=== PATIENT | male | born 1935 | race Hispanic/Latino ===

== ENCOUNTER 2019-02-13 10:29 | Inpatient (IN) | payer MEDICARE ==
--- NOTE | 2019-02-13 11:03 | Emergency Department Report ---
ED General Adult HPI - General Chief complaint: Back Pain/Injury Stated complaint: BACK PAIN Time Seen by Provider: 02/13/19 11:01 Source: EMS Mode of arrival: Stretcher Limitations: Physical Limitation - History of Present Illness Initial comments: Patient is an 83-year-old male who comes to the ER today via EMS with severe back pain. Per his family he is usually an active person. He drives and gets his haircut every couple weeks. However, for the last 2 weeks he has been complaining of his back hurting. This is after he bent over and put air and his tire during which time he felt a pop. Immediately after that event he was able to walk and go about his daily activities in his home. However, he would not leave the home and do his usual errands. Over the past 2 days the patient has been in bed in so much pain that he has been urinating and defecating 2:00 at his bedside. Patient has no incontinence. He is able to move his lower extremities against gravity and resistance: Only after receiving fentanyl 100 g via EMS personnel. His states that prior to getting the medicine he would not move his legs because of excruciating pain right more than left. Patient has no saddle anesthesia on exam. Patient does have COPD and has been on and off prednisone all of his life. Pt does report that he has had back pain in the past and has a "low back problem" but the pain has never been this bad. PCP none NOK PMH copd quit smoking 16 years ago home O2 1-3L PRN HTN dyslipidemia Rx spiriva triamt. losartan B12 MVI Breo Statin -: Gradual, week(s) (2) Radiation: extremity Severity scale (0 -10): 10 Consistency: constant Improves with: medication Worsens with: movement Associated Symptoms: denies other symptoms Treatments Prior to Arrival: NSAID, Aspirin, cold therapy, heat therapy - Related Data Allergies Allergy/AdvReac Type Severity Reaction Status Date / Time Penicillins Allergy Anaphylaxis Verified 02/13/19 10:54 ED Review of Systems ROS: Stated complaint: BACK PAIN Other details as noted in HPI Comment: All other systems reviewed and negative ED Past Medical Hx - Past Medical History Previous Medical History?: Yes Hx Hypertension: Yes Hx CVA: No Hx Heart Attack/AMI: No Hx Congestive Heart Failure: Yes Hx Diabetes: No Hx Deep Vein Thrombosis: No Hx Pulmonary Embolism: No Hx GERD: No Hx Liver Disease: No Hx Renal Disease: No Hx of Cancer: No Hx Sickle Cell Disease: No Hx Arthritis: No Hx Headaches / Migraines: No Hx Seizures: No Hx Kidney Stones: No Hx Psychiatric Treatment: No Hx Asthma: Yes Hx COPD: Yes Hx Tuberculosis: No Hx Dementia: No Hx HIV: No - Surgical History Past Surgical History?: Yes Additional Surgical History: Hernia repair - Family History Family history: no significant - Social History Smoking Status: Former Smoker Substance Use Type: None ED Physical Exam - General Limitations: Physical Limitation General appearance: alert - Head Head exam: Present: atraumatic, normocephalic - Eye Eye exam: Present: normal appearance, PERRL - ENT ENT exam: Present: mucous membranes moist - Neck Neck exam: Present: normal inspection - Respiratory Respiratory exam: Present: normal lung sounds bilaterally. Absent: respiratory distress - Cardiovascular Cardiovascular Exam: Present: regular rate, normal rhythm. Absent: systolic murmur, diastolic murmur, rubs, gallop - GI/Abdominal GI/Abdominal exam: Present: soft, normal bowel sounds - Rectal Rectal exam: Present: normal rectal tone - exam: Present: normal inspection - Extremities Exam Extremities exam: Present: normal capillary refill, other (pain with movement bilateral but will move against gravity and resistance p pain meds) - Back Exam Back exam: Present: normal inspection - Neurological Exam Neurological exam: Present: alert, oriented X3 - Psychiatric Psychiatric exam: Present: normal affect, normal mood - Skin Skin exam: Present: warm, dry, intact, normal color, other (dry scaly ble). Absent: rash ED Course Vital Signs 02/13/19 02/13/19 10:47 12:54 Pulse Rate 58 L Respiratory 14 Rate Blood Pressure 130/66 102/84 [Right] O2 Sat by Pulse 98 Oximetry ED Medical Decision Making - Lab Data Result diagrams: 02/13/19 11:26 02/13/19 11:26 - Radiology Data Radiology results: report reviewed, image reviewed - Medical Decision Making Vital Signs 02/13/19 10:47 Pulse Rate 58 L Respiratory 14 Rate Blood Pressure 130/66 [Right] O2 Sat by Pulse 98 Oximetry Labs 02/13/19 02/13/19 02/13/19 11:26 11:26 Unknown WBC 12.3 H RBC 4.82 Hgb 13.2 Hct 40.2 MCV 83 L MCH 27 L MCHC 33 RDW 13.5 Plt Count 362 Lymph % (Auto) 9.1 L Quay % (Auto) 10.5 H Eos % (Auto) 0.7 Baso % (Auto) 0.8 Lymph # 1.1 L Quay # 1.3 H Eos # 0.1 Baso # 0.1 Seg Neutrophils % 78.9 H Seg Neutrophils # 9.7 H Sodium 131 L Potassium 3.6 Chloride 93.9 L Carbon Dioxide 22 Anion Gap 19 BUN 22 H Creatinine 0.8 Estimated GFR > 60 BUN/Creatinine Ratio 28 Glucose 103 H Calcium 9.0 Total Bilirubin 0.80 AST 22 ALT 16 Alkaline Phosphatase 106 Troponin T < 0.010 Total Protein 6.8 Albumin 3.5 L Albumin/Globulin Ratio 1.1 Urine Color Yellow Urine Turbidity Clear Urine pH 7.0 Ur Specific Darwin 1.013 Urine Protein 30 mg/dl Urine Glucose (UA) Neg Urine Ketones Neg Urine Blood Neg Urine Nitrite Neg Urine Bilirubin Neg Urine Urobilinogen < 2.0 Ur Leukocyte Esterase Neg Urine WBC (Auto) 1.0 Urine RBC (Auto) 2.0 Hyaline Casts 1 Urine Mucus Few pt given fentanyl by EMS- that has taken pain from [address] Fernando [address] Aguilar- admit for pain/brace 1420 MRI noted- pt re-medicated for pain [address] Johns will admit for intractable pain family and pt updated - Differential Diagnosis ro lumbar fx Critical care attestation.: If time is entered above; I have spent that time in minutes in the direct care of this critically ill patient, excluding procedure time. ED Disposition Clinical Impression: Intractable back pain, Lumbar compression fracture, History of COPD Disposition: - OP ADMIT IP TO THIS HOSP Is pt being admited?: Yes Does the pt Need Aspirin: No Condition: Stable Time of Disposition: 14:28
[2019-02-13 11:46] LABS: Basophils # (Auto) 0.1 K/mm3 (0.0-0.1); Basophils % (Auto) 0.8 % (0.0-1.8); Eosinophils # (Auto) 0.1 K/mm3 (0.0-0.4); Eosinophils % (Auto) 0.7 % (0.0-4.3); Hematocrit 40.2 % (35.5-45.6); Hemoglobin 13.2 gm/dl (11.8-15.2); Lymphocytes # (Auto) 1.1 K/mm3 (1.2-5.4); Lymphocytes % (Auto) 9.1 % (13.4-35.0); Mean Corpuscular HGB Conc 33 % (32-34); Mean Corpuscular Volume 83 fl (84-94); Monocytes # (Auto) 1.3 K/mm3 (0.0-0.8); Monocytes % (Auto) 10.5 % (0.0-7.3); Platelet Count 362 K/mm3 (140-440); Red Blood Count 4.82 M/mm3 (3.65-5.03); Red Cell Distribution Width 13.5 % (13.2-15.2)
--- NOTE | 2019-02-13 11:59 | XRay Report ---
CHEST 1 VIEW INDICATION: Chest Pain. COMPARISON: None. FINDINGS: Support devices: None. Heart: Within normal limits. Pulmonary vasculature: Normal. Lungs/Pleura: No acute air space or interstitial disease. Likely chronic bilateral perihilar intersti tial opacities. No pleural effusion. Additional findings: None. IMPRESSION: 1. No CHF or pneumonia. Signer Name: Shree Eubanks MD Signed: 02/13/2019 11:54 AM Workstation Name: [id number]
[2019-02-13 12:04] LABS: Alanine Aminotransferase 16 units/L (7-56); Albumin 3.5 g/dL (3.9-5); BUN/Creatinine Ratio 28; Blood Urea Nitrogen 22 mg/dL (9-20); Hemolysis Index 4
[2019-02-13 12:07] LABS: Bilirubin,Urine NEG (Negative); Blood,Urine NEG (Negative); Color,Urine Yellow (Yellow); Hyaline Casts,Urine 1 /LPF; Mucus,Urine FEW /HPF; Urobilinogen,Urine < 2.0 mg/dL (<2.0)
--- NOTE | 2019-02-13 12:26 | Cat Scan Report ---
CT LUMBAR SPINE WITHOUT CONTRAST INDICATION: severe low back pain. TECHNIQUE: Axial imaging performed through the lumbar spine without the use of contrast. Sagittal a nd coronal reconstructed images were also reviewed. All CT scans at this location are performed usin g CT dose reduction for ALARA by means of automated exposure control. COMPARISON: None FINDINGS: Alignment: Spinal alignment is normal. Bones: Severe osteopenia is evident. A chronic L1 superior endplate fracture is identified with 50% l oss of height. Acute fracture lines are identified throughout the L3 vertebral body with 25% loss of height. There is mild retropulsion of the posterior wall of L3 into the spinal canal resulting in mil d to moderate canal narrowing. No additional acute fractures are identified. Moderate multilevel dege nerative disc disease and facet arthropathy are identified. No suspicious bone lesion. There appears to be deformity and fusion of the right SI joint which may represent a chronic healed fracture. Soft tissues: No acute or significant incidental soft tissue abnormality. IMPRESSION: Severe osteopenia. Acute L3 fracture as outlined above. If radicular symptoms are present consider further evaluation wi th MRI. Chronic L1 fracture. Advanced multilevel degenerative changes. Question chronic healed fracture of the right sacrum. Signer Name: Elvis Gramajo Jr, MD Signed: 02/13/2019 12:21 PM Workstation Name: [id number]
--- NOTE | 2019-02-13 14:14 | Magnetic Resonance Report ---
MRI LUMBAR SPINE 02/13/2019 INDICATION / CLINICAL INFORMATION: SEVERE LUMBAR PAIN. Abnormal CT scan COMPARISON: Lumbar spine CT 02/13/2019 FINDINGS: GENERAL OBSERVATIONS: Unenhanced MR images of the lumbar spine were obtained and compared to a CT sca n obtained earlier in the day. As seen on the CT exam, there is evidence of acute compression deformity of the L3 vertebral body, wh ich is lost approximately 50% of its original height. A chronic pronounced compression deformity of L1 is also noted. The remaining lumbar vertebral body heights are preserved. [id number]-[id number] ANALYSIS: L5-S1: The disc profile is well preserved. L4-5: Mild diffuse disc bulging is present associated with prominent facet degenerative changes. Ther e is no evidence of stenosis or nerve root compression. L3-4: Minimal diffuse disc bulging. L2-3: Moderate diffuse disc bulging associated with some dorsal retropulsion of the L3 compression fr acture, resulting in moderately severe central canal stenosis. L1-2: Minimal diffuse disc bulging. BONE MARROW: Findings consistent with acute bone marrow edema at the L3 level associated with the com pression deformity. Some degenerative bone marrow signal changes are also noted at the T2 level. SPINAL CORD/CAUDA EQUINA: No significant abnormality. PARASPINAL SOFT TISSUES: No significant abnormality. IMPRESSION: 1. Acute/recent L3 compression deformity. 2. Prominent chronic compression of L1. Signer Name: Vitor Almaraz MD Signed: 02/13/2019 2:09 PM Workstation Name: [id number]
[2019-02-13] MEDS ORDERED: oxyCODONE /ACETAMINOPHEN 5-325MG TAB PO ONE (14:22)
[2019-02-13] MEDS ORDERED: ALBUTEROL 2.5 MG/3 ML NEBU IH PRN (14:38)
[2019-02-13] MEDS ORDERED: MORPHINE 2 MG/1 ML INJ IV PRN (14:38)
[2019-02-13] MEDS ORDERED: ONDANSETRON 4 MG/2 ML INJ IV PRN (14:38)
--- NOTE | 2019-02-13 14:41 | History and Physical Report ---
History of Present Illness Chief complaint: My back hurts something terrible History of present illness: 83 YO Male with DJD, COPD, HTN, Chronic Respiratory Failure on Home Oxygen 3L NC, HLD presents to ED for evaluation. Pt states that he has experienced severe pain in his lower back over the past 2 weeks, with progressively worsening symptoms over the same time frame. Pt states that he was bending over to put air in his automobile tire when he felt a "pop" in his lower back a few days ago. Pt states that he has subsequently felt worsening pain in his lower back. Pt is currently unable to walk due to pain. EMS notified, and upon arrival the patient was found to be in distress and transported to [facility]. Pt seen and evaluated in ED and found to have Severe DJD, complicated by Sciatica due to Lumbar compression fracture. Ortho surgery consulted in ED. Pt denies saddle anesthesia, impotence, loss of bowel/bladder continence. Pt placed in observation status and admitted to DEO unit. Advanced Care Planning conducted in ED. Pt and acknowledge understanding and agreement with care plan. No prior admission for review. All listed medication reconciled at time of admission. Past History Past Medical History: other (see hpi) Past Surgical History: hernia repair Social history: . denies: smoking, alcohol abuse Family history: hypertension Medications and Allergies Allergies Allergy/AdvReac Type Severity Reaction Status Date / Time Penicillins Allergy Anaphylaxis Verified 02/13/19 10:54 Active Meds: Active Medications Acetaminophen (Tylenol) 650 mg PO Q4H PRN PRN Reason: Pain MILD(1-3)/Fever >100.5/GARCIA Albuterol (Proventil) 2.5 mg IH Q4HRT PRN PRN Reason: Shortness Of Breath Sodium Chloride (Nacl 0.9% 1000 Ml) 1,000 mls @ 75 mls/hr IV DIRECT RUBIO Levofloxacin/Dextrose (Levaquin 500mg/100ml) 500 mg in 100 mls @ 100 mls/hr IV Q24HR RUBIO; Protocol Morphine Sulfate (Morphine) 2 mg IV Q4H PRN PRN Reason: Pain, Moderate (4-6) Ondansetron HCl (Zofran) 4 mg IV Q8H PRN PRN Reason: Nausea And Vomiting Oxycodone/Acetaminophen (Percocet 5/325) 1 tab PO Q6H PRN PRN Reason: Pain, Moderate (4-6) Sodium Chloride (Sodium Chloride Flush Syringe 10 Ml) 10 ml IV BID RUBIO Sodium Chloride (Sodium Chloride Flush Syringe 10 Ml) 10 ml IV PRN PRN PRN Reason: LINE FLUSH Review of Systems Constitutional: no weight loss, no weight gain, no fever, no chills Ears, nose, mouth and throat: no ear pain, no ear discharge, no tinnitis, no n ose pain Cardiovascular: no orthopnea, no palpitations, no rapid/irregular heart beat, no syncope Respiratory: no cough, no excessive sputum, no hemoptysis Gastrointestinal: no nausea, no vomiting, no diarrhea, no constipation Genitourinary Male: no hematuria, no flank pain, no discharge, no urinary frequency, no urinary hesitancy, no incontinence Rectal: no pain, no incontinence, no bleeding Musculoskeletal: low back pain, shooting leg pain, gait dysfunction, no neck stiffness, no neck pain, no redness of joints Integumentary: no rash, no pruritis, no redness, no sores, no wounds Neurological: no head injury, no transient paralysis, no paralysis, no weakness, no parathesias, no numbness, no tingling Psychiatric: no anxiety, no memory loss, no hypersomnia, no change in appetite Endocrine: no cold intolerance, no heat intolerance, no polyphagia, no polydipsia, no polyuria, no nocturia Hematologic/Lymphatic: no easy bruising, no easy bleeding, no lymphadenopathy Allergic/Immunologic: no urticaria, no wheezing, no persistent infections, no anaphylaxis Exam - Constitutional Vitals: Temp Pulse Resp BP Pulse Ox 58 L 14 102/84 98 02/13/19 10:47 02/13/19 10:47 02/13/19 12:54 02/13/19 10:47 General appearance: Present: mild distress - EENT Eyes: Present: PERRL ENT: hearing intact, clear oral mucosa - Neck Neck: Present: supple, normal ROM - Respiratory Respiratory effort: normal Respiratory: bilateral: CTA - Cardiovascular Heart Sounds: Present: S1 & S2. Absent: rub, click - Extremities Extremities: pulses symmetrical, No edema Peripheral Pulses: within normal limits - Abdominal General gastrointestinal: Present: soft, non-tender, non-distended, normal bowel sounds Male genitourinary: Present: normal - Integumentary Integumentary: Present: clear, warm, dry - Musculoskeletal Musculoskeletal: gait normal, strength equal bilaterally - Psychiatric Psychiatric: appropriate mood/affect, intact judgment & insight - Neurologic Neurologic: CNII-XII intact, moves all extremities Results - Labs CBC & Chem 7: 02/13/19 11:26 02/13/19 11:26 Labs: Abnormal lab results 02/13/19 02/13/19 Range/Units 11:26 11:26 WBC 12.3 H (4.5-11.0) K/mm3 MCV 83 L (84-94) fl MCH 27 L (28-32) pg Lymph % (Auto) 9.1 L (13.4-35.0) % Davie % (Auto) 10.5 H (0.0-7.3) % Lymph # 1.1 L (1.2-5.4) K/mm3 Davie # 1.3 H (0.0-0.8) K/mm3 Seg Neutrophils % 78.9 H (40.0-70.0) % Seg Neutrophils # 9.7 H (1.8-7.7) K/mm3 Sodium 131 L (137-145) mmol/L Chloride 93.9 L (98-107) mmol/L BUN 22 H (9-20) mg/dL Glucose 103 H (75-100) mg/dL Albumin 3.5 L (3.9-5) g/dL Assessment and Plan - Patient Problems (1) Chronic respiratory failure Current Visit: Yes Status: Chronic Plan to address problem: Supplemental oxygen, nebulizer therapy, pulse oximetry, NIPPV as clinically indicated, (2) Sciatica Current Visit: Yes Status: Acute Qualifiers: Laterality: bilateral Qualified Code(s): M54.31 - Sciatica, right side; M54.32 - Sciatica, left side Plan to address problem: IV steroid therapy, Lumbar x ray, Lumbar MRI, ortho consulted in ED, LSO Brace (3) Constipation Current Visit: Yes Status: Acute Qualifiers: Constipation type: other constipation type Qualified Code(s): K59.09 - Other constipation Plan to address problem: bowel regimen (4) Intractable back pain Current Visit: No Status: Acute Plan to address problem: Pain control, supportive care. weight bearing as per ortho surgery (5) Lumbar compression fracture Current Visit: No Status: Acute Qualifiers: Lumbar vertebra fracture level: L3 Plan to address problem: Ortho consulted in ED, LSO Brace, IV steroid therapy, MRI lumbar spine, pain control, PT consulted. (6) SIRS (systemic inflammatory response syndrome) Current Visit: Yes Status: Acute Plan to address problem: CBC, CMP, Chest x ray, urinalysis, empiric antibiotic therapy (7) Hyponatremia syndrome Current Visit: Yes Status: Acute Plan to address problem: IVF resuscitation therapy, monitor uop q shift, (8) Advance care planning Current Visit: Yes Status: Acute Plan to address problem: Code Status: Pt is full code, Pt and acknowledge understanding and agreement with care plan. +30min (9) DVT prophylaxis Current Visit: Yes Status: Acute Plan to address problem: SCD to BLE while in bed, prophylactic lovenox
[2019-02-13] MEDS: methylPREDNISolone Sod Succinate 40 MG/1 ML INJ IV SCH (15:40)
[2019-02-13] MEDS ORDERED: SENNOSIDES/DOCUSATE SODIUM 8.6/50 MG TAB PO PRN (16:45)
[2019-02-13] MEDS ORDERED: FLEET ENEMA PR ONE ×2 (16:45→19:05)
--- NOTE | 2019-02-13 20:36 | Consultation ---
History of Present Illness Consult date: 02/13/19 Reason for consult: COPD, hypoxemia, other (Back pain.) History of present illness: pulmonary and critical care consultation DR. ACEVEDO THANK YOU FOR ASKING US TO PARTICIPATE IN THE CARE OF THIS PATIENT. 83 YO Male with DJD, COPD, HTN, Chronic Respiratory Failure on Home Oxygen 3L NC, HLD presents to ED for evaluation. Pt states that he has experienced severe pain in his lower back over the past 2 weeks, with progressively worsening symptoms over the same time frame. Pt states that he was bending over to put air in his automobile tire when he felt a "pop" in his lower back a few days ago. Pt states that he has subsequently felt worsening pain in his lower back. Pt is currently unable to walk due to pain. EMS notified, and upon arrival the patient was found to be in distress and transported to [facility]. Pt seen and evaluated in ED and found to have Severe DJD, complicated by Sciatica due to Lumbar compression fracture. Ortho surgery consulted in ED. Pt denies saddle anesthesia. Pt placed in observation status and admitted to DEO unit. Patient denies chest pain or shortness of breath or cough. Patient resting on 3 litres O2. O2 saturation 97%. History of smoking. Stopped smoking many years ago. Patient has COPD and chronic respiratory failure and on home O2. Patient allergic to penicillin. Patients chest xray reported no CHF and No pneumonia. Past History Past Medical History: COPD, other (see hpi) Past Surgical History: hernia repair Social history: . denies: smoking, alcohol abuse Family history: hypertension Medications and Allergies Allergies Allergy/AdvReac Type Severity Reaction Status Date / Time Penicillins Allergy Anaphylaxis Verified 02/13/19 10:54 Active Meds: Active Medications Acetaminophen (Tylenol) 650 mg PO Q4H PRN PRN Reason: Pain MILD(1-3)/Fever >100.5/GARCIA Albuterol (Proventil) 2.5 mg IH Q4HRT PRN PRN Reason: Shortness Of Breath Enoxaparin Sodium (Enoxaparin) 40 mg SUB-Q QDAY@2200 RUBIO Sodium Chloride (Nacl 0.9% 1000 Ml) 1,000 mls @ 75 mls/hr IV DIRECT RUBIO Levofloxacin/Dextrose (Levaquin 500mg/100ml) 500 mg in 100 mls @ 100 mls/hr IV Q24H RUBIO; Protocol Last Admin: 02/13/19 15:54 Dose: 100 mls/hr Documented by: Methylprednisolone Sodium Succinate (Solu-Medrol) 20 mg IV Q24H [facility] Last Admin: 02/13/19 15:40 Dose: 20 mg Documented by: Morphine Sulfate (Morphine) 2 mg IV Q4H PRN PRN Reason: Pain, Moderate (4-6) Ondansetron HCl (Zofran) 4 mg IV Q8H PRN PRN Reason: Nausea And Vomiting Oxycodone/Acetaminophen (Percocet 5/325) 1 tab PO Q6H PRN PRN Reason: Pain, Moderate (4-6) Senna/Docusate Sodium (Senokot S) 2 tab PO Q12H PRN PRN Reason: Laxative Effect Sodium Chloride (Sodium Chloride Flush Syringe 10 Ml) 10 ml IV BID [facility] Sodium Chloride (Sodium Chloride Flush Syringe 10 Ml) 10 ml IV PRN PRN PRN Reason: LINE FLUSH Review of Systems All systems: negative Physical Examination Vital signs: Vital Signs Pulse Resp BP Pulse Ox 58 L 14 130/66 98 02/13/19 10:47 02/13/19 10:47 02/13/19 10:47 02/13/19 10:47 General appearance: no acute distress, alert Eyes: non-icteric ENT: oropharynx moist Neck: supple, no JVD Ascultation: Bilateral: diminished breath sounds, other (Prolonged expiratory phase.) Cardiovascular: regular rate and rhythm Gastrointestinal: normoactive bowel sounds, soft, non-tender Integumentary: normal Extremities: no cyanosis, no edema Musculoskeletal: other (Comptrssion fracture L3.) Gait: poor gait normal mental status, non-focal exam, pupils equal and round, CN II-XII normal mood appropriate Results - Laboratory Findings CBC and BMP: 02/13/19 11:26 02/13/19 11:26 Abnormal lab findings: Abnormal Labs 02/13/19 02/13/19 11:26 11:26 WBC 12.3 H MCV 83 L MCH 27 L Lymph % (Auto) 9.1 L Bee % (Auto) 10.5 H Lymph # 1.1 L Bee # 1.3 H Seg Neutrophils % 78.9 H Seg Neutrophils # 9.7 H Sodium 131 L Chloride 93.9 L BUN 22 H Glucose 103 H Albumin 3.5 L - Diagnostic Findings Chest x-ray: report reviewed (No CHF, No Pneumonia reported.), image reviewed Assessment and Plan 83 YO Male with DJD, COPD, HTN, Chronic Respiratory Failure on Home Oxygen 3L NC, HLD presents to ED for evaluation. Pt states that he has experienced severe pain in his lower back over the past 2 weeks, with progressively worsening symptoms over the same time frame. Pt states that he was bending over to put air in his automobile tire when he felt a "pop" in his lower back a few days ago. Pt states that he has subsequently felt worsening pain in his lower back. Pt is currently unable to walk due to pain. EMS notified, and upon arrival the patient was found to be in distress and transported to [facility]. Pt seen and evaluated in ED and found to have Severe DJD, complicated by Sciatica due to Lumbar compression fracture. Ortho surgery consulted in ED. Pt denies saddle anesthesia. Pt placed in observation status and admitted to DEO unit. Patient denies chest pain or shortness of breath or cough. Patient resting on 3 litres O2. O2 saturation 97%. History of smoking. Stopped smoking many years ago. Patient has COPD and chronic respiratory failure and on home O2. Patient allergic to penicillin. Patients chest xray reported no CHF and No pneumonia. - Patient Problems (1) Chronic respiratory failure Current Visit: Yes Status: Chronic Plan to address problem: O2 3 litres via nasal canula. Albuterol/atrovent aerosol treatments q 6 hours. Continue I/V solumedrol smaller dose 20 mg I/V qd. Continue S/C Lovenox Recommend GI prophylaxis. (2) COPD (chronic obstructive pulmonary disease) Current Visit: Yes Status: Acute Plan to address problem: O2 3 litres via nasal canula. Albuterol/atrovent aerosol treatments q 6 hours. Continue I/V solumedrol smaller dose 20 mg I/V qd. Continue S/C Lovenox Recommend GI prophylaxis. (3) Lumbar compression fracture Current Visit: No Status: Acute Qualifiers: Lumbar vertebra fracture level: L3 Plan to address problem: Management as per orthopedics. (4) Intractable back pain Current Visit: No Status: Acute Plan to address problem: Management as per orthopedics.
[2019-02-13 22:19] LABS: Chol/HDL Ratio 2.28 %
[2019-02-14 01:12] LABS: Bilirubin,Urine NEG (Negative); Blood,Urine NEG (Negative); Color,Urine Yellow (Yellow); Urobilinogen,Urine < 2.0 mg/dL (<2.0)
[2019-02-14 04:53] LABS: Basophils % (Auto) 0.1 % (0.0-1.8); Hematocrit 40.2 % (35.5-45.6); Hemoglobin 13.7 gm/dl (11.8-15.2); Lymphocytes # (Auto) 0.8 K/mm3 (1.2-5.4); Lymphocytes % (Auto) 6.9 % (13.4-35.0); Mean Corpuscular HGB Conc 34 % (32-34); Mean Corpuscular Volume 82 fl (84-94); Monocytes # (Auto) 0.8 K/mm3 (0.0-0.8); Monocytes % (Auto) 7.4 % (0.0-7.3); Platelet Count 369 K/mm3 (140-440); Red Blood Count 4.92 M/mm3 (3.65-5.03); Red Cell Distribution Width 13.7 % (13.2-15.2)
[2019-02-14 05:07] LABS: BUN/Creatinine Ratio 23; Blood Urea Nitrogen 21 mg/dL (9-20); Hemolysis Index 9
[2019-02-14] MEDS: oxyCODONE /ACETAMINOPHEN 5-325MG TAB PO PRN (09:57)
--- NOTE | 2019-02-14 15:27 | Progress Note ---
Assessment and Plan / Intractable back pain Likely due to lumbar compression fracture Pain control, supportive care. weight bearing as per ortho surgery / Lumbar compression fracture Ortho consulted in ED, LSO Brace, pain control, PT consulted. MRI spine ordered / SIRS (systemic inflammatory response syndrome) vs leukemoid reaction WBC trended down, no infectious etiology, stop antibiotics / Chronic respiratory failure with COPD and obstructive sleep apnea Continue Supplemental oxygen, nebulizer therapy, pulse oximetry, CPAP at bedtime / Sciatica, acute IV steroid therapy, ortho consulted in ED, LSO Brace Will follow PT from /Constipation Placed on bowel regimen / Hyponatremia likely due to dehydration IVF resuscitation therapy, monitor uop q shift, / Advance care planning Code Status: Pt is full code, Pt and acknowledge understanding and agreement with care plan. +30min / DVT prophylaxis SCD to BLE while in bed, prophylactic lovenox Disposition: Weight for PT eval and [place] recommendation Physical exam: GENERAL: well-developed and well-nourished elderly male lying on bed appeared to be in no discomfort. HEENT: Normocephalic. Atraumatic. No conjunctival congestion or icterus. Patient has moist mucous membranes. NECK: Supple. Trachea midline. CHEST/LUNGS: Clear to auscultated bilaterally, breathing nonlabored. No wheezes crackles or rhonchi. On 3 L nasal cannula HEART/CARDIOVASCULAR: Regular in rate and rhythm. S1 and S2 positive. ABDOMEN: Abdomen is soft, nontender. Patient has normal bowel sounds. SKIN: There is no rash. Warm and dry. NEURO: No focal motor deficit. Follows command. MUSCULOSKELETAL: No joint effusion or tenderness. Restricted movement on bilateral lower extremity EXTRIMITY: No edema, no cyanosis or clubbing. PSYCH: Cooperative. Subjective Date of service: 02/14/19 Interval history: Patient seen and examined. Medical records and medication list reviewed. No acute event overnight noted by the RN. Patient denies any chest pain or difficulty breathing. Patient is tolerating diet. Discussed plan of care at bedside with patient and family. He complains of lower back pain, and inability to get up from bed by himself Objective - Constitutional Vitals: Vital Signs - 12hr 02/14/19 02/14/19 02/14/19 07:27 09:25 13:47 Temperature 98.2 F 98.7 F Pulse Rate 84 92 H Respiratory 20 20 Rate Blood Pressure 128/72 144/65 O2 Sat by Pulse 97 92 93 Oximetry - Labs CBC & Chem 7: 02/14/19 04:14 02/14/19 04:14 Labs: Abnormal lab results 02/14/19 02/14/19 02/14/19 Range/Units 04:14 04:14 09:47 MCV 82 L (84-94) fl Lymph % (Auto) 6.9 L (13.4-35.0) % [place] % (Auto) 7.4 H (0.0-7.3) % Lymph # 0.8 L (1.2-5.4) K/mm3 Seg Neutrophils % 85.6 H (40.0-70.0) % Seg Neutrophils # 9.3 H (1.8-7.7) K/mm3 POC ABG pO2 68 L (80-105) Sodium 130 L (137-145) mmol/L Chloride 92.0 L (98-107) mmol/L BUN 21 H (9-20) mg/dL Glucose 109 H (75-100) mg/dL
--- NOTE | 2019-02-14 16:10 | Consultation ---
History of Present Illness - HPI Consult date: 02/14/19 Consult reason: low back pain History of present illness: 83 y/o male with c/o low back pain for past couple of weeks, according pt's daughter began after her father did a lot of driving, standing...states pain lo cated primarily in the lower back... hx of bilateral numbness feet for years, denies DM... Past History Past Medical History: COPD, other (see hpi) Past Surgical History: hernia repair Social history: . denies: smoking, alcohol abuse Family history: hypertension Medications and Allergies Allergies Allergy/AdvReac Type Severity Reaction Status Date / Time Penicillins Allergy Anaphylaxis Verified 02/13/19 10:54 Active Meds: Active Medications Acetaminophen (Tylenol) 650 mg PO Q4H PRN PRN Reason: Pain MILD(1-3)/Fever >100.5/GARCIA Albuterol (Proventil) 2.5 mg IH Q4HRT PRN PRN Reason: Shortness Of Breath Enoxaparin Sodium (Enoxaparin) 40 mg SUB-Q QDAY@2200 RUBIO Sodium Chloride (Nacl 0.9% 1000 Ml) 1,000 mls @ 75 mls/hr IV DIRECT RUBIO Levofloxacin/Dextrose (Levaquin 500mg/100ml) 500 mg in 100 mls @ 100 mls/hr IV Q24H RUBIO; Protocol Last Admin: 02/13/19 15:54 Dose: 100 mls/hr Documented by: Methylprednisolone Sodium Succinate (Solu-Medrol) 20 mg IV Q24H RUBIO Last Admin: 02/13/19 15:40 Dose: 20 mg Documented by: Morphine Sulfate (Morphine) 2 mg IV Q4H PRN PRN Reason: Pain, Moderate (4-6) Ondansetron HCl (Zofran) 4 mg IV Q8H PRN PRN Reason: Nausea And Vomiting Oxycodone/Acetaminophen (Percocet 5/325) 1 tab PO Q6H PRN PRN Reason: Pain, Moderate (4-6) Last Admin: 02/14/19 09:57 Dose: 1 tab Documented by: Senna/Docusate Sodium (Senokot S) 2 tab PO Q12H PRN PRN Reason: Laxative Effect Last Admin: 02/14/19 09:57 Dose: 2 tab Documented by: Sodium Chloride (Sodium Chloride Flush Syringe 10 Ml) 10 ml IV BID RUBIO Sodium Chloride (Sodium Chloride Flush Syringe 10 Ml) 10 ml IV PRN PRN PRN Reason: LINE FLUSH Physical Examination - Physical exam Narrative exam: L-spine - tender at paraspinal muscles, neg SLR, DTR's hypoactive, STR 3/5 CT and MRI scans reviewed by me and appear to show old chronic changes, no acute finding seen... Eyes: PERRL ENT: Positive: clear oral mucosa Respiratory effort: normal Respiratory: bilateral: CTA Rhythm: regular Heart Sounds: Positive: S1 & S2 General gastrointestinal: Positive: soft, non-tender, non-distended, normal bowel sounds Integumentary: clear, warm, dry Neurologic: Positive: CNII-XII intact, moves all extremities, gait normal. 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
--- NOTE | 2019-02-14 17:54 | Progress Note ---
Assessment and Plan Patient alert, awake. Resting on 3 litres O2. O2 saturation 93%.No complaint of chest pain, shortness of breath, ABG on room air. POC ABG pH 7.439 (7.35-7.45) 02/14/19 09:47 POC ABG pCO2 36.0 (35-45) 02/14/19 09:47 POC ABG pO2 68 (80-105) L 02/14/19 09:47 POC ABG HCO3 24.4 (22-26 mml/L) 02/14/19 09:47 POC ABG Total CO2 25 (23-27mmol/L) 02/14/19 09:47 POC ABG O2 Sat 94 02/14/19 09:47 Appreciate Orthopedic help. Patient not able to do things on his own. Recommend walker, bedside commode and home health.. - Patient Problems (1) Chronic respiratory failure Current Visit: Yes Status: Chronic Plan to address problem: O2 3 litres via nasal canula. Albuterol/atrovent aerosol treatments q 6 hours. Continue I/V solumedrol smaller dose 20 mg I/V qd. Continue S/C Lovenox Recommend GI prophylaxis. (2) COPD (chronic obstructive pulmonary disease) Current Visit: Yes Status: Acute Plan to address problem: O2 3 litres via nasal canula. Albuterol/atrovent aerosol treatments q 6 hours. Continue I/V solumedrol smaller dose 20 mg I/V qd. Continue S/C Lovenox Recommend GI prophylaxis. (3) Lumbar compression fracture Current Visit: No Status: Inactive Qualifiers: Lumbar vertebra fracture level: L3 Plan to address problem: Management as per orthopedics. (4) Intractable back pain Current Visit: No Status: Inactive Plan to address problem: Management as per orthopedics. Subjective Date of service: 02/14/19 Interval history: Patient alert, awake. Resting on 3 litres O2. O2 saturation 93%.No complaint of chest pain, shortness of breath, ABG on room air. POC ABG pH 7.439 (7.35-7.45) 02/14/19 09:47 POC ABG pCO2 36.0 (35-45) 02/14/19 09:47 POC ABG pO2 68 (80-105) L 02/14/19 09:47 POC ABG HCO3 24.4 (22-26 mml/L) 02/14/19 09:47 POC ABG Total CO2 25 (23-27mmol/L) 02/14/19 09:47 POC ABG O2 Sat 94 02/14/19 09:47 Appreciate Orthopedic help. Patient not able to do things on his own. Recommend walker, bedside commode and home health. Objective Vital Signs - 12hr 02/14/19 02/14/19 02/14/19 07:27 09:25 13:47 Temperature 98.2 F 98.7 F Pulse Rate 84 92 H Respiratory 20 20 Rate Blood Pressure 128/72 144/65 O2 Sat by Pulse 97 92 93 Oximetry Constitutional: no acute distress, alert Eyes: non-icteric ENT: oropharynx moist Neck: supple, no JVD Ascultation: Bilateral: diminished breath sounds, other (Prolonged expiratory phase.) Cardiovascular: regular rate and rhythm Gastrointestinal: normoactive bowel sounds, soft, non-tender Integumentary: normal Extremities: no cyanosis, no edema Neurologic: normal mental status, non-focal exam, pupils equal and round, CN II- XII normal Psychiatric: mood appropriate CBC and BMP: 02/14/19 04:14 02/14/19 04:14 ABG, PT/INR, D-dimer: ABG POC ABG pH 7.439 (7.35-7.45) 02/14/19 09:47 POC ABG pCO2 36.0 (35-45) 02/14/19 09:47 POC ABG pO2 68 (80-105) L 02/14/19 09:47 POC ABG HCO3 24.4 (22-26 mml/L) 02/14/19 09:47 POC ABG Total CO2 25 (23-27mmol/L) 02/14/19 09:47 POC ABG O2 Sat 94 02/14/19 09:47 Abnormal lab findings: Abnormal Labs 02/13/19 02/13/19 02/14/19 11:26 11:26 04:14 WBC 12.3 H MCV 83 L 82 L MCH 27 L Lymph % (Auto) 9.1 L 6.9 L [place] % (Auto) 10.5 H 7.4 H Lymph # 1.1 L 0.8 L [place] # 1.3 H Seg Neutrophils % 78.9 H 85.6 H Seg Neutrophils # 9.7 H 9.3 H POC ABG pO2 Sodium 131 L Chloride 93.9 L BUN 22 H Glucose 103 H Albumin 3.5 L 02/14/19 02/14/19 04:14 09:47 WBC MCV MCH Lymph % (Auto) [place] % (Auto) Lymph # [place] # Seg Neutrophils % Seg Neutrophils # POC ABG pO2 68 L Sodium 130 L Chloride 92.0 L BUN 21 H Glucose 109 H Albumin
[2019-02-14] MEDS: ENOXAPARIN 40 MG/0.4 ML INJ SUB-Q SCH (22:16)
[2019-02-14] MEDS: SODIUM CHLORIDE 0.9% 1000 ML 1,000 ML IV SCH (22:17)
[2019-02-15] MEDS: ENOXAPARIN 40 MG/0.4 ML INJ SUB-Q SCH ×2 (02:53→22:07)
[2019-02-15] MEDS: ACETAMINOPHEN 325 MG TAB PO PRN (03:52)
[2019-02-15] MEDS: oxyCODONE /ACETAMINOPHEN 5-325MG TAB PO PRN ×2 (12:17→22:07)
[2019-02-15] MEDS: DOCUSATE SODIUM 100 MG CAP PO SCH ×2 (12:39→22:07)
[2019-02-15] MEDS: POLYETHYLENE GLYCOL 3350 17 GM POWDER PO SCH (12:39)
--- NOTE | 2019-02-15 12:44 | Progress Note ---
Assessment and Plan -Chronic respiratory failure on home O2 at 3L/min -COPD- stable, not in acute exacerbation at this time -Sleep apnea on CPAP -Sciatica -Constipation -Intractable back pain -Lumbar compression fracture -Hyponatremia syndrome - continue supplemental oxygen as needed to keep O2 sat's > 90% - continue bronchodilators (NANETTE & LABA) with pulmonary hygiene per RT -Add inhaled corticosteroids -continue with nocturnal CPAP, encouraged compliance - PT/OT with spinal cord precautions per Ortho recommendations - mobility protocols for pressure ulcer prophylaxis -VTE prophylaxis -Flu & Pneumovax addressed per protocol -chronic home medications -Gentle IV hydration and monitor sodium levels -Get urine sodium and osmolality, get serum osmolality to better assess hyponatremia -Trend leukocytosis, if o true clinical evidence of infection will stop antibiotics in the morning and monitor -On IV solumedrol Discussed with the patient his and grand-daughter at the bedside. Their questions were answered Subjective Date of service: 02/15/19 Interval history: Patient is seen today for: chronic respiratory failure on home O2, MONO on CPAP; COPD Seen and examined at bedside; 24hour events reviewed; nursing and respiratory care staff consulted; no adverse overnight events reported to me; Vitals, labs, medications, chart reviewed. Denies any chest pain, no shortness of breath. Feels he has a lot of mucus build up but is able to expectorate. he has his CPAP machine with nasal mask at the bedside Objective Vital Signs - 12hr 02/15/19 02/15/19 02/15/19 02:18 07:27 12:17 Temperature 98.7 F 98.9 F Pulse Rate 87 72 Respiratory 18 18 18 Rate Blood Pressure 139/79 147/64 O2 Sat by Pulse 93 91 Oximetry Constitutional: no acute distress, alert, other (on oxygen at 3L/min) Eyes: non-icteric ENT: oropharynx moist Neck: supple, no JVD Effort: normal Ascultation: Bilateral: diminished breath sounds Cardiovascular: regular rate and rhythm, other (S1,S2) Gastrointestinal: normoactive bowel sounds, soft, non-tender Integumentary: normal Extremities: no cyanosis, no edema Neurologic: normal mental status, pupils equal and round, CN II-XII normal, other (weakness of bilateral lower extremity) Psychiatric: mood appropriate CBC and BMP: 02/14/19 04:14 02/14/19 04:14 ABG, PT/INR, D-dimer: ABG POC ABG pH 7.439 (7.35-7.45) 02/14/19 09:47 POC ABG pCO2 36.0 (35-45) 02/14/19 09:47 POC ABG pO2 68 (80-105) L 02/14/19 09:47 POC ABG HCO3 24.4 (22-26 mml/L) 02/14/19 09:47 POC ABG Total CO2 25 (23-27mmol/L) 02/14/19 09:47 POC ABG O2 Sat 94 02/14/19 09:47 Abnormal lab findings: Abnormal Labs 02/13/19 02/13/19 02/14/19 11:26 11:26 04:14 WBC 12.3 H MCV 83 L 82 L MCH 27 L Lymph % (Auto) 9.1 L 6.9 L [place] % (Auto) 10.5 H 7.4 H Lymph # 1.1 L 0.8 L [place] # 1.3 H Seg Neutrophils % 78.9 H 85.6 H Seg Neutrophils # 9.7 H 9.3 H POC ABG pO2 Sodium 131 L Chloride 93.9 L BUN 22 H Glucose 103 H Albumin 3.5 L 02/14/19 02/14/19 04:14 09:47 WBC MCV MCH Lymph % (Auto) [place] % (Auto) Lymph # [place] # Seg Neutrophils % Seg Neutrophils # POC ABG pO2 68 L Sodium 130 L Chloride 92.0 L BUN 21 H Glucose 109 H Albumin Allied health notes reviewed: nursing
--- NOTE | 2019-02-15 13:53 | Progress Note ---
Assessment and Plan / Intractable back pain Likely due to lumbar compression fracture Pain control, supportive care. weight bearing as per ortho surgery / Lumbar compression fracture Ortho consulted in ED, LSO Brace, pain control, PT consulted. MRI spine ordered / SIRS (systemic inflammatory response syndrome) vs leukemoid reaction WBC trended down, no infectious etiology, stop antibiotics / Chronic respiratory failure with COPD and obstructive sleep apnea Continue Supplemental oxygen, nebulizer therapy, pulse oximetry, CPAP at bedtime / Sciatica, acute IV steroid therapy, ortho consulted in ED, LSO Brace Will follow PT recommendation /Constipation Placed on bowel regimen / Hyponatremia likely due to dehydration IVF resuscitation therapy, monitor uop q shift, / Advance care planning Code Status: Pt is full code, Pt and acknowledge understanding and agreement with care plan. / DVT prophylaxis SCD to BLE while in bed, prophylactic lovenox Disposition: Wait for PT eval and recommendation Physical exam: GENERAL: well-developed and well-nourished elderly male lying on bed appeared to be in no discomfort. HEENT: Normocephalic. Atraumatic. No conjunctival congestion or icterus. Patient has moist mucous membranes. NECK: Supple. Trachea midline. CHEST/LUNGS: Clear to auscultated bilaterally, breathing nonlabored. No wheezes crackles or rhonchi. On 3 L nasal cannula HEART/CARDIOVASCULAR: Regular in rate and rhythm. S1 and S2 positive. ABDOMEN: Abdomen is soft, nontender. Patient has normal bowel sounds. SKIN: There is no rash. Warm and dry. NEURO: No focal motor deficit. Follows command. MUSCULOSKELETAL: No joint effusion or tenderness. Restricted movement on bilateral lower extremity EXTRIMITY: No edema, no cyanosis or clubbing. PSYCH: Cooperative. Subjective Date of service: 02/15/19 Interval history: Patient seen and examined. Medical records and medication list reviewed. No acute event overnight noted by the RN. Patient denies any chest pain or difficulty breathing. Patient is tolerating di et. Discussed plan of care at bedside with patient and family. He complains of lower back pain, and inability to get up from bed by himself Objective - Constitutional Vitals: Vital Signs - 12hr 02/15/19 02/15/19 02/15/19 02:18 07:27 12:17 Temperature 98.7 F 98.9 F Pulse Rate 87 72 Respiratory 18 18 18 Rate Blood Pressure 139/79 147/64 O2 Sat by Pulse 93 91 Oximetry - Labs CBC & Chem 7: 02/14/19 04:14 02/14/19 04:14
[2019-02-15] MEDS: methylPREDNISolone Sod Succinate 40 MG/1 ML INJ IV SCH ×2 (15:30)
[2019-02-15] MEDS: FLEET ENEMA PR ONE (22:04)
[2019-02-16] MEDS: ACETAMINOPHEN 325 MG TAB PO PRN (06:27)
[2019-02-16] MEDS: FLEET ENEMA PR ONE (06:27)
[2019-02-16] MEDS: SODIUM CHLORIDE 0.9% 1000 ML 1,000 ML IV SCH ×2 (08:22→20:56)
[2019-02-16] MEDS: POLYETHYLENE GLYCOL 3350 17 GM POWDER PO SCH (09:56)
[2019-02-16] MEDS: DOCUSATE SODIUM 100 MG CAP PO SCH ×2 (09:56→23:02)
--- NOTE | 2019-02-16 13:14 | Progress Note ---
Assessment and Plan -Chronic respiratory failure on home O2 at 3L/min -COPD- stable, not in acute exacerbation at this time -Sleep apnea on CPAP -Sciatica -Constipation -Intractable back pain -Lumbar compression fracture -Hyponatremia syndrome Encouraged to use his CPAP machine at night and prn Analgesia discussed Airway clearance techniques and incentive spirometry - continue supplemental oxygen as needed to keep O2 sat's > 90% - continue bronchodilators (NANETTE & LABA) with pulmonary hygiene per RT -continue inhaled corticosteroids -continue with nocturnal CPAP, encouraged compliance - continue PT/OT with spinal cord precautions per Ortho recommendations - mobility protocols for pressure ulcer prophylaxis -VTE prophylaxis -Flu & Pneumovax addressed per protocol -chronic home medications -Gentle IV hydration and monitor sodium levels -Get urine sodium and osmolality, get serum osmolality to better assess hyponatremia -Trend leukocytosis, if no true clinical evidence of infection will stop antibio tics in the morning and monitor -On IV solumedrol Discussed with the patient his and family r at the bedside. Their questions were answered Subjective Date of service: 02/16/19 Interval history: Patient is seen today for: chronic respiratory failure on home O2, MONO on CPAP; COPD Seen and examined at bedside; 24hour events reviewed; nursing and respiratory care staff consulted; no adverse overnight events reported to me; Vitals, labs, medications, chart reviewed. Denies any chest pain, no shortness of breath. Feels he has a lot of mucus build up but is able to expectorate. he has his CPAP machine with nasal mask at the bedside, family is visiting. Waiting on the delivery of his lumbosacarl brace Objective Vital Signs - 12hr 02/16/19 02/16/19 02/16/19 02:27 07:38 09:15 Temperature 97.9 F 97.8 F Pulse Rate 71 62 Pulse Rate [ From Monitor] Respiratory 20 18 Rate Blood Pressure 140/70 Blood Pressure 134/67 [Right] O2 Sat by Pulse 97 96 97 Oximetry 02/16/19 10:00 Temperature Pulse Rate Pulse Rate [ 62 From Monitor] Respiratory 18 Rate Blood Pressure Blood Pressure [Right] O2 Sat by Pulse 97 Oximetry Constitutional: no acute distress, alert, other (on oxygen at 3L/min) Eyes: non-icteric ENT: oropharynx moist Neck: supple, no JVD Effort: normal Ascultation: Bilateral: diminished breath sounds, other (Prolonged expiratory ph ase.) Cardiovascular: regular rate and rhythm, other (S1,S2) Gastrointestinal: normoactive bowel sounds, soft, non-tender Integumentary: normal Extremities: no cyanosis, no edema Neurologic: normal mental status, pupils equal and round, CN II-XII normal, other (weakness of bilateral lower extremity) Psychiatric: mood appropriate CBC and BMP: 02/14/19 04:14 02/14/19 04:14 ABG, PT/INR, D-dimer: ABG POC ABG pH 7.439 (7.35-7.45) 02/14/19 09:47 POC ABG pCO2 36.0 (35-45) 02/14/19 09:47 POC ABG pO2 68 (80-105) L 02/14/19 09:47 POC ABG HCO3 24.4 (22-26 mml/L) 02/14/19 09:47 POC ABG Total CO2 25 (23-27mmol/L) 02/14/19 09:47 POC ABG O2 Sat 94 02/14/19 09:47 Abnormal lab findings: Abnormal Labs 02/13/19 02/13/19 02/14/19 11:26 11:26 04:14 WBC 12.3 H MCV 83 L 82 L MCH 27 L Lymph % (Auto) 9.1 L 6.9 L [place] % (Auto) 10.5 H 7.4 H Lymph # 1.1 L 0.8 L [place] # 1.3 H Seg Neutrophils % 78.9 H 85.6 H Seg Neutrophils # 9.7 H 9.3 H POC ABG pO2 Sodium 131 L Chloride 93.9 L BUN 22 H Glucose 103 H Albumin 3.5 L 02/14/19 02/14/19 04:14 09:47 WBC MCV MCH Lymph % (Auto) [place] % (Auto) Lymph # [place] # Seg Neutrophils % Seg Neutrophils # POC ABG pO2 68 L Sodium 130 L Chloride 92.0 L BUN 21 H Glucose 109 H Albumin Allied health notes reviewed: nursing
--- NOTE | 2019-02-16 13:54 | Progress Note ---
Assessment and Plan / Intractable back pain Likely due to lumbar compression fracture. Unable to get out from bed Pain control, supportive care. weight bearing as per ortho surgery and PT recommendation / Lumbar compression fracture Ortho consulted in ED, need LSO Brace, cont pain control, PT consulted. MRI spine showed BM edema due to compression deformity Wait for PT recommendation - need LSO brace before PT can do evaluation / SIRS (systemic inflammatory response syndrome) vs leukemoid reaction WBC trended down, no infectious etiology, stop antibiotics / Chronic respiratory failure with COPD and obstructive sleep apnea Continue Supplemental oxygen, nebulizer therapy, pulse oximetry, CPAP at bedtime / Sciatica, acute IV steroid therapy, ortho consulted in ED, LSO Brace Will follow PT recommendation /Constipation Placed on bowel regimen / Hyponatremia likely due to dehydration IVF resuscitation therapy, monitor uop q shift, / Advance care planning Code Status: Pt is full code, Pt and acknowledge understanding and agreement with care plan. / DVT prophylaxis SCD to BLE while in bed, prophylactic lovenox Disposition: Wait for PT eval and recommendation. Family wants for [facility] Physical exam: GENERAL: well-developed and well-nourished elderly male lying on bed appeared to be in no discomfort. HEENT: Normocephalic. Atraumatic. No conjunctival congestion or icterus. Patient has moist mucous membranes. NECK: Supple. Trachea midline. CHEST/LUNGS: Clear to auscultated bilaterally, breathing nonlabored. No wheezes crackles or rhonchi. On 3 L nasal cannula HEART/CARDIOVASCULAR: Regular in rate and rhythm. S1 and S2 positive. ABDOMEN: Abdomen is soft, nontender. Patient has normal bowel sounds. SKIN: There is no rash. Warm and dry. NEURO: No focal motor deficit. Follows command. MUSCULOSKELETAL: No joint effusion or tenderness. Restricted movement on bilateral lower extremity EXTRIMITY: No edema, no cyanosis or clubbing. PSYCH: Cooperative. Subjective Date of service: 02/16/19 Interval history: Patient seen and examined. Medical records and medication list reviewed. No acute event overnight noted by the RN. Patient denies any chest pain or difficulty breathing. Patient is tolerating diet. Discussed plan of care at bedside with patient and family. He complains of lower back pain, and inability to get up from bed by himself - PT eval pending Objective - Constitutional Vitals: Vital Signs - 12hr 02/16/19 02/16/19 02/16/19 02:27 07:38 09:15 Temperature 97.9 F 97.8 F Pulse Rate 71 62 Pulse Rate [ From Monitor] Respiratory 20 18 Rate Blood Pressure 140/70 Blood Pressure 134/67 [Right] O2 Sat by Pulse 97 96 97 Oximetry 02/16/19 10:00 Temperature Pulse Rate Pulse Rate [ 62 From Monitor] Respiratory 18 Rate Blood Pressure Blood Pressure [Right] O2 Sat by Pulse 97 Oximetry - Labs CBC & Chem 7: 02/14/19 04:14 02/14/19 04:14
[2019-02-16] MEDS: methylPREDNISolone Sod Succinate 40 MG/1 ML INJ IV SCH (15:51)
[2019-02-16 19:07] LABS: Osmolality,Urine 775 Mosm/kg
[2019-02-16] MEDS: ENOXAPARIN 40 MG/0.4 ML INJ SUB-Q SCH (23:01)
--- NOTE | 2019-02-17 08:12 | Progress Note ---
Assessment and Plan Chronic respiratory failure on home O2 at 3L/min COPD Sleep apnea on CPAP Sciatica Constipation Intractable back pain Lumbar compression fracture Hyponatremia syndrome - continue supplemental oxygen as needed to keep O2 sat's > 90% - continue bronchodilators (NANETTE & LABA) with pulmonary hygiene per RT - Add inhaled corticosteroids - continue with nocturnal CPAP, encouraged compliance - PT/OT with spinal cord precautions per Ortho recommendations - mobility protocols for pressure ulcer prophylaxis - VTE prophylaxis - Flu & Pneumovax addressed per protocol - continue pertinent chronic home medications per attending - continue gentle IV hydration and monitor sodium levels - follow urine sodium and osmolality, serum osmolality to better assess hyponatremia - de-escalate AB's based on clinical & microbiologic data (? steroid component) - continue systemic steroids with slow taper (IV solumedrol) - continue other care per attending / other networks software consultant's ... re-evaluate in am & prn CODE STATUS: FULL Subjective Date of service: 02/17/19 Principal diagnosis: Ch. hypoxemic resp failure; COPD; MONO; Lumbar compression fracture Interval history: Patient is seen today for: Chronic hypoxemic resp failure; COPD; MONO on CPAP; Intractable back pain; Lumbar compression fracture; Hyponatremia syndrome Seen and examined at bedside; 24hour events reviewed; nursing and respiratory care staff consulted; no adverse overnight events reported to me; Objective Vital Signs - 12hr 02/16/19 02/16/19 02/17/19 22:00 22:23 02:13 Temperature 98.0 F Pulse Rate 55 L Pulse Rate [ 74 From Monitor] Respiratory 18 18 Rate Blood Pressure 128/56 O2 Sat by Pulse 93 98 96 Oximetry Constitutional: no acute distress, alert, other (on oxygen at 3L/min) Eyes: non-icteric ENT: oropharynx moist Neck: supple, no JVD Effort: normal Ascultation: Bilateral: diminished breath sounds, other (Prolonged expiratory phase.) Cardiovascular: regular rate and rhythm, other (S1,S2) Gastrointestinal: normoactive bowel sounds, soft, non-tender Integumentary: normal Extremities: no cyanosis, no edema Neurologic: normal mental status, pupils equal and round, CN II-XII normal, other (weakness of bilateral lower extremity) Psychiatric: mood appropriate CBC and BMP: 02/14/19 04:14 02/14/19 04:14 ABG, PT/INR, D-dimer: ABG POC ABG pH 7.439 (7.35-7.45) 02/14/19 09:47 POC ABG pCO2 36.0 (35-45) 02/14/19 09:47 POC ABG pO2 68 (80-105) L 02/14/19 09:47 POC ABG HCO3 24.4 (22-26 mml/L) 02/14/19 09:47 POC ABG Total CO2 25 (23-27mmol/L) 02/14/19 09:47 POC ABG O2 Sat 94 02/14/19 09:47 Abnormal lab findings: Abnormal Labs 02/13/19 02/13/19 02/14/19 11:26 11:26 04:14 WBC 12.3 H MCV 83 L 82 L MCH 27 L Lymph % (Auto) 9.1 L 6.9 L [place] % (Auto) 10.5 H 7.4 H Lymph # 1.1 L 0.8 L [place] # 1.3 H Seg Neutrophils % 78.9 H 85.6 H Seg Neutrophils # 9.7 H 9.3 H POC ABG pO2 Sodium 131 L Chloride 93.9 L BUN 22 H Glucose 103 H Albumin 3.5 L 02/14/19 02/14/19 04:14 09:47 WBC MCV MCH Lymph % (Auto) [place] % (Auto) Lymph # [place] # Seg Neutrophils % Seg Neutrophils # POC ABG pO2 68 L Sodium 130 L Chloride 92.0 L BUN 21 H Glucose 109 H Albumin Allied health notes reviewed: nursing
[2019-02-17 08:41] VITALS: BP 119/54
[2019-02-17] MEDS: DOCUSATE SODIUM 100 MG CAP PO SCH (10:09)
[2019-02-17] MEDS: POLYETHYLENE GLYCOL 3350 17 GM POWDER PO SCH (10:09)
[2019-02-17] MEDS: ACETAMINOPHEN 325 MG TAB PO PRN ×2 (10:10→15:33)
--- NOTE | 2019-02-17 14:07 | Progress Note ---
Assessment and Plan -Chronic respiratory failure on home O2 at 3L/min -COPD- stable, not in acute exacerbation at this time -Sleep apnea on CPAP -Sciatica -Constipation -Intractable back pain -Lumbar compression fracture -Hyponatremia syndrome Encouraged to use his CPAP machine at night and prn Airway clearance techniques and incentive spirometry Stop antibiotics Stop steroids Discharge planning discussed with primary - continue supplemental oxygen as needed to keep O2 sat's > 90% - continue bronchodilators (NANETTE & LABA) with pulmonary hygiene per RT -continue inhaled corticosteroids -continue with nocturnal CPAP, encouraged compliance - continue PT/OT with spinal cord precautions per Ortho recommendations - mobility protocols for pressure ulcer prophylaxis -VTE prophylaxis -Flu & Pneumovax addressed per protocol -chronic home medications -Gentle IV hydration and monitor sodium levels -Get urine sodium and osmolality, get serum osmolality to better assess hyponatremia -Trend leukocytosis, if no true clinical evidence of infection will stop antibiotics in the morning and monitor -On IV solumedrol Discussed with the patient and his Their questions were answered Subjective Date of service: 02/17/19 Principal diagnosis: Ch. hypoxemic resp failure; COPD; MONO; Lumbar compression fracture Interval history: Patient is seen today for: chronic respiratory failure on home O2, MONO on CPAP; COPD Seen and examined at bedside; 24hour events reviewed; nursing and respiratory care staff consulted; no adverse overnight events reported to me; Vitals, labs, medications, chart reviewed. Denies any chest pain, no shortness of breath. visiting Lumbosacral brace was delivered, he was able to walk with the brace on. Discharge planning for today. Objective Vital Signs - 12hr 02/17/19 02/17/19 02/17/19 02:13 07:58 09:08 Temperature 98.0 F 97.8 F Pulse Rate 55 L 54 L Respiratory 18 20 Rate Blood Pressure 128/56 119/54 O2 Sat by Pulse 96 94 92 Oximetry 02/17/19 10:10 Temperature Pulse Rate Respiratory 20 Rate Blood Pressure O2 Sat by Pulse Oximetry Constitutional: no acute distress, alert, other (on oxygen at 3L/min) Eyes: non-icteric ENT: oropharynx moist Neck: supple, no JVD Effort: normal Ascultation: Bilateral: diminished breath sounds, other (Prolonged expiratory phase.) Cardiovascular: regular rate and rhythm, other (S1,S2) Gastrointestinal: normoactive bowel sounds, soft, non-tender Integumentary: normal Extremities: no cyanosis, no edema Neurologic: normal mental status, pupils equal and round, CN II-XII normal, other (weakness of bilateral lower extremity) Psychiatric: mood appropriate CBC and BMP: 02/14/19 04:14 02/14/19 04:14 ABG, PT/INR, D-dimer: ABG POC ABG pH 7.439 (7.35-7.45) 02/14/19 09:47 POC ABG pCO2 36.0 (35-45) 02/14/19 09:47 POC ABG pO2 68 (80-105) L 02/14/19 09:47 POC ABG HCO3 24.4 (22-26 mml/L) 02/14/19 09:47 POC ABG Total CO2 25 (23-27mmol/L) 02/14/19 09:47 POC ABG O2 Sat 94 02/14/19 09:47 Abnormal lab findings: Abnormal Labs 02/13/19 02/13/19 02/14/19 11:26 11:26 04:14 WBC 12.3 H MCV 83 L 82 L MCH 27 L Lymph % (Auto) 9.1 L 6.9 L [place] % (Auto) 10.5 H 7.4 H Lymph # 1.1 L 0.8 L [place] # 1.3 H Seg Neutrophils % 78.9 H 85.6 H Seg Neutrophils # 9.7 H 9.3 H POC ABG pO2 Sodium 131 L Chloride 93.9 L BUN 22 H Glucose 103 H Albumin 3.5 L 02/14/19 02/14/19 04:14 09:47 WBC MCV MCH Lymph % (Auto) [place] % (Auto) Lymph # [place] # Seg Neutrophils % Seg Neutrophils # POC ABG pO2 68 L Sodium 130 L Chloride 92.0 L BUN 21 H Glucose 109 H Albumin Allied health notes reviewed: nursing
--- NOTE | 2019-02-17 15:18 | Discharge Summary ---
Providers - Providers Date of Admission: 02/14/19 13:01 Date of discharge: 02/17/19 Attending physician: FABIO LAZO 02/13/19 14:41 Physical Therapy Evaluation and Treat [CONS] Routine Comment: Reason For Exam: weakness 02/14/19 12:25 Consult to Physician [CONS] Routine Comment: Consulting Provider: OXANA ALVARADO Physician Instructions: Reason For Exam: compresion fracture 02/15/19 12:24 Consult to Case Management [CONS] Routine Services Needed at Discharge: Other Notified:: MARY Additional Physician Instructions: NNF placement Primary care physician: BREE AMES Hospitalization Reason for admission: 02/17/19 Condition: Stable Pertinent studies: Lumber spine CT/MRI CXR Hospital course: 83 YO Male with DJD, COPD, HTN, Chronic Respiratory Failure on Home Oxygen 3L NC, HLD presented to ED for evaluation of worsening severe pain in his lower back over the past 2 weeks. Pt seen and evaluated in ED and found to have Severe DJD, complicated by Sciatica due to Lumbar compression fracture. Ortho surgery consulted in ED and admitted for further evaluation and Mx. Discharge diagnosis and Mx: / Intractable back pain Likely due to lumbar compression fracture. Patient was Unable to get out from bed Managed with Pain control by IV narcotic as needed, supportive care. weight bearing as per ortho surgery and PT recommendation He was then discharged with outpt f/u with oral narcotic as needed / Lumbar compression fracture Ortho consulted in ED, need LSO Brace, given pain control, PT consulted. MRI spine showed BM edema due to compression deformity. Patient was then discharged to [facility] / SIRS (systemic inflammatory response syndrome) vs leukemoid reaction WBC trended down, no infectious etiology, stopped antibiotics / Chronic respiratory failure with COPD and obstructive sleep apnea Continue Supplemental oxygen, nebulizer therapy, pulse oximetry, CPAP at bedtime / Sciatica, acute given IV steroid therapy, ortho consulted in ED - Placed on LSO Brace /Constipation Placed on bowel regimen / Hyponatremia likely due to dehydration Improved with IVF resuscitation therapy, monitor uop q shift, / Advance care planning Code Status: Pt is full code, Pt and acknowledge understanding and agre ement with care plan. / DVT prophylaxis SCD to BLE while in bed, prophylactic lovenox Disposition: d/c to [facility] Physical exam: GENERAL: well-developed and well-nourished elderly male lying on bed appeared to be in no discomfort. HEENT: Normocephalic. Atraumatic. No conjunctival congestion or icterus. Patient has moist mucous membranes. NECK: Supple. Trachea midline. CHEST/LUNGS: Clear to auscultated bilaterally, breathing nonlabored. No wheezes crackles or rhonchi. On 3 L nasal cannula HEART/CARDIOVASCULAR: Regular in rate and rhythm. S1 and S2 positive. ABDOMEN: Abdomen is soft, nontender. Patient has normal bowel sounds. SKIN: There is no rash. Warm and dry. NEURO: No focal motor deficit. Follows command. MUSCULOSKELETAL: No joint effusion or tenderness. Restricted movement on bilateral lower extremity EXTRIMITY: No edema, no cyanosis or clubbing. PSYCH: Cooperative. Disposition: DC/[place] Time spent for discharge: 34 minutes Core Measure Documentation - Palliative Care Palliative Care/ Comfort Measures: Not Applicable - Core Measures Any of the following diagnoses?: history only Exam - Constitutional Vitals: Temp Pulse Resp BP Pulse Ox 97.8 F 54 L 20 119/54 92 02/17/19 07:58 02/17/19 07:58 02/17/19 10:10 02/17/19 07:58 02/17/19 09:08 Plan Activity: fall precautions Weight Bearing Status: Non-Weight Bearing Diet: low fat, low salt Follow up with: BREE AMES MD [Primary Care Provider] - 7 Days Prescriptions: predniSONE [Deltasone] 50 mg PO QDAY #5 tab oxyCODONE /ACETAMINOPHEN [Percocet 5/325 mg] 1 tab PO Q6H PRN #10 tablet PRN Reason: Pain, Moderate (4-6)
[2019-02-17] MEDS: methylPREDNISolone Sod Succinate 40 MG/1 ML INJ IV SCH (15:39)
== END 2019-02-17 18:20 | DRG 543 ==
LOC: ED 10:29 → 2B-ACE 14:29 → OBSVTOIN 02-14 13:01
PROVIDERS: ADMIT Internal Medicine; ATTEND Internal Medicine
PROC: 4A033R1 Measurement of Arterial Saturation, Peripheral, Percutaneous Approach (ICD-10-PCS; principal; 2019-02-14)
DX: M48.56XA Collapsed vertebra, not elsewhere classified, lumbar region, initial encounter for fracture (principal); E87.1 Hypo-osmolality and hyponatremia; R65.10 Systemic inflammatory response syndrome (SIRS) of non-infectious origin without acute organ dysfunction; J96.10 Chronic respiratory failure, unspecified whether with hypoxia or hypercapnia; M54.9 Dorsalgia, unspecified; E86.0 Dehydration; M54.31 Sciatica, right side; D72.823 Leukemoid reaction; J44.9 Chronic obstructive pulmonary disease, unspecified; G47.33 Obstructive sleep apnea (adult) (pediatric); M54.32 Sciatica, left side; K59.09 Other constipation; I11.0 Hypertensive heart disease with heart failure; I50.9 Heart failure, unspecified; Z82.49 Family history of ischemic heart disease and other diseases of the circulatory system; Z88.0 Allergy status to penicillin; Z99.81 Dependence on supplemental oxygen; Z87.891 Personal history of nicotine dependence
CPT/HCPCS: 36415; 36600; 71045; 72131; 72148; 80048; 80053; 80061; 81001; 82803; 83930; 83935; 84300; 84436; 84443; 84484; 85025; 93005; 93010; 94760; G0378; J1650; J1956; J2920; J7030

== ENCOUNTER 2019-04-05 00:39 | Emergency (ER) | payer MEDICARE ==
[2019-04-05] MEDS ORDERED: ONDANSETRON 4 MG/2 ML INJ IV ONE (01:14)
[2019-04-05] MEDS ORDERED: SODIUM CHLORIDE 0.9% 1000 ML 1,000 ML IV ONE (01:14)
[2019-04-05] MEDS ORDERED: MORPHINE 2 MG/1 ML INJ IV ONE (01:14)
[2019-04-05] MEDS ORDERED: DICYCLOMINE 20 MG/2 ML INJ IM ONE (01:14)
[2019-04-05] MEDS ORDERED: FAMOTIDINE 20 MG/2 ML INJ IV ONE (01:14)
[2019-04-05] MEDS ORDERED: ALBUTEROL 2.5 MG/3 ML NEBU IH ONE (01:16)
[2019-04-05] MEDS ORDERED: methylPREDNISolone Sod Succinate 125 MG/2 ML INJ IV ONE (01:16)
[2019-04-05] MEDS ORDERED: IPRATROPIUM 0.02% NEBU 2.5 ML IH ONE (01:16)
[2019-04-05 01:48] LABS: Basophils % (Auto) 1.1 % (0.0-1.8); Eosinophils % (Auto) 1.9 % (0.0-4.3); Hematocrit 36.8 % (35.5-45.6); Hemoglobin 12.3 gm/dl (11.8-15.2); Lymphocytes # (Auto) 1.9 K/mm3 (1.2-5.4); Lymphocytes % (Auto) 17.5 % (13.4-35.0); Mean Corpuscular HGB Conc 34 % (32-34); Mean Corpuscular Volume 82 fl (84-94); Mean Platelet Volume 6.3 fl (6-12); Monocytes # (Auto) 1.2 K/mm3 (0.0-0.8); Monocytes % (Auto) 10.7 % (0.0-7.3); Platelet Count 410 K/mm3 (140-440); Red Blood Count 4.48 M/mm3 (3.65-5.03); Red Cell Distribution Width 14.6 % (13.2-15.2)
[2019-04-05 01:49] LABS: Basophils # (Auto) 0.1 K/mm3 (0.0-0.1); Eosinophils # (Auto) 0.2 K/mm3 (0.0-0.4)
[2019-04-05 02:00] LABS: BUN/Creatinine Ratio 13; Blood Urea Nitrogen 12 mg/dL (9-20); Calcium 8.4 mg/dL (8.4-10.2)
[2019-04-05 02:01] LABS: Alanine Aminotransferase 17 units/L (7-56); Albumin 3.2 g/dL (3.9-5); Hemolysis Index 1
--- NOTE | 2019-04-05 02:23 | XRay Report ---
CHEST 1 VIEW, 04/05/2019 1:43 AM CLINICAL INFORMATION/INDICATION: Chest pain. Productive cough. COMPARISON: Chest radiograph, 02/13/2019 FINDINGS: SUPPORT DEVICES: None. HEART: Cardiac silhouette is normal in size. LUNGS/PLEURA: There is no focal airspace consolidation or significant pleural effusion. ADDITIONAL FINDINGS: No additional acute findings. IMPRESSION: 1. No evidence of acute cardiopulmonary process. Signer Name: Suzan Yanes MD Signed: 04/05/2019 2:18 AM Workstation Name: [email or web address]
--- NOTE | 2019-04-05 02:47 | Emergency Department Report ---
- General Chief Complaint: Dyspnea/Respdistress Stated Complaint: PRODUCTIVE COUGH Time Seen by Provider: 04/05/19 01:06 Source: patient, EMS Mode of arrival: Stretcher Limitations: No Limitations - History of Present Illness Initial Comments: Patient is a 83-year-old male with a past history of COPD and hypertension who is presenting with a productive cough. Patient states cough present for approximately 3 days. Patient does wear oxygen at home and has been taking nebs treatments. Patient states that he's had some increased work of breathing. Consistency: constant Associated Symptoms: cough, shortness of breath. denies: fever, chills, myalgias, diaphoresis, headache, rhinorrhea, nasal congestion, abdominal pain, nausea, vomiting, diarrhea, confusion - Related Data Home Medications Medication Instructions Recorded Confirmed Last Taken Calcium Carbonate/Vitamin D3 600 tab-cap PO QDAY MDD supplement 02/14/19 02/14/19 3 Days Ago [Calcium 600 with Vit D Chew Tb] ~02/11/19 Cyanocobalamin (Vitamin B-12) 2,500 mcg PO QDAY 02/14/19 02/14/19 02/11/19 [Vitamin B12] 2500 Simvastatin 40 mg PO QHS 02/14/19 02/14/19 3 Days Ago ~02/11/19 Previous Rx's Medication Instructions Recorded Last Taken Type ALBUTEROL NEB's [Proventil 0.083% 2.5 mg IH Q4HRT PRN nebu 02/17/19 Unknown Rx NEBS] oxyCODONE /ACETAMINOPHEN [Percocet 1 tab PO Q6H PRN #10 tablet 02/17/19 Unknown Rx 5/325 mg] predniSONE [Deltasone] 50 mg PO QDAY #5 tab 02/17/19 Unknown Rx ALBUTEROL NEB's [Proventil 0.083% 5 mg IH TID PRN #20 neb 04/05/19 Unknown Rx NEBS] Benzonatate [Tessalon Perles] 100 mg PO Q8HR #10 capsule 04/05/19 Unknown Rx DOXYCYCLINE Hyclate [Vibramycin 100 mg PO Q12HR #14 capsule 04/05/19 Unknown Rx CAP] predniSONE [Deltasone] 20 mg PO QDAY #5 tab 04/05/19 Unknown Rx Allergies Allergy/AdvReac Type Severity Reaction Status Date / Time Penicillins Allergy Anaphylaxis Verified 02/13/19 10:54 ED Review of Systems ROS: Stated complaint: PRODUCTIVE COUGH Other details as noted in HPI Comment: All other systems reviewed and negative ED Past Medical Hx - Past Medical History Hx Hypertension: Yes Hx CVA: No Hx Heart Attack/AMI: No Hx Congestive Heart Failure: Yes Hx Diabetes: No Hx Deep Vein Thrombosis: No Hx Pulmonary Embolism: No Hx GERD: No Hx Liver Disease: No Hx Renal Disease: No Hx Sickle Cell Disease: No Hx Arthritis: No Hx Headaches / Migraines: No Hx Seizures: No Hx Kidney Stones: No Hx Psychiatric Treatment: No Hx Asthma: Yes Hx COPD: Yes Hx Tuberculosis: No Hx Dementia: No Hx HIV: No - Surgical History Additional Surgical History: Hernia repair - Social History Smoking Status: Never Smoker - Medications Home Medications: Home Medications Medication Instructions Recorded Confirmed Last Taken Type Calcium Carbonate/Vitamin D3 600 tab-cap PO QDAY MDD supplement 02/14/19 02/14/19 3 Days Ago History [Calcium 600 with Vit D Chew Tb] ~02/11/19 Cyanocobalamin (Vitamin B-12) 2,500 mcg PO QDAY 02/14/19 02/14/19 02/11/19 History [Vitamin B12] 2500 Simvastatin 40 mg PO QHS 02/14/19 02/14/19 3 Days Ago History ~02/11/19 ALBUTEROL NEB's [Proventil 0.083% 2.5 mg IH Q4HRT PRN nebu 02/17/19 Unknown Rx NEBS] oxyCODONE /ACETAMINOPHEN [Percocet 1 tab PO Q6H PRN #10 tablet 02/17/19 Unknown Rx 5/325 mg] predniSONE [Deltasone] 50 mg PO QDAY #5 tab 02/17/19 Unknown Rx ALBUTEROL NEB's [Proventil 0.083% 5 mg IH TID PRN #20 neb 04/05/19 Unknown Rx NEBS] Benzonatate [Tessalon Perles] 100 mg PO Q8HR #10 capsule 04/05/19 Unknown Rx DOXYCYCLINE Hyclate [Vibramycin 100 mg PO Q12HR #14 capsule 04/05/19 Unknown Rx CAP] predniSONE [Deltasone] 20 mg PO QDAY #5 tab 04/05/19 Unknown Rx ED Physical Exam - General Limitations: No Limitations General appearance: alert, in no apparent distress, other (she is speaking in full sentences and does not appear to be in respiratory distress) - Head Head exam: Present: atraumatic, normocephalic - Eye Eye exam: Present: normal appearance. Absent: PERRL, EOMI - ENT ENT exam: Present: mucous membranes moist - Neck Neck exam: Present: normal inspection - Respiratory Respiratory exam: Present: normal lung sounds bilaterally, wheezes (very mild subtle wheeze is present at the end of expiration). Absent: respiratory distress, rales, rhonchi - Cardiovascular Cardiovascular Exam: Present: regular rate, normal rhythm, normal heart sounds. Absent: systolic murmur, diastolic murmur, rubs, gallop - GI/Abdominal GI/Abdominal exam: Present: soft, normal bowel sounds. Absent: distended, tenderness, guarding, rebound - Rectal Rectal exam: Present: deferred - Extremities Exam Extremities exam: Present: normal inspection - Back Exam Back exam: Present: normal inspection, paraspinal tenderness - Neurological Exam Neurological exam: Present: alert, oriented X3 - Psychiatric Psychiatric exam: Present: normal affect, normal mood - Skin Skin exam: Present: warm, dry, intact, normal color. Absent: rash ED Course Vital Signs 04/05/19 04/05/19 04/05/19 00:01 01:10 01:15 Temperature 98.0 F Pulse Rate 117 H 83 Pulse Rate [ Bilateral] Respiratory 25 H 18 Rate Respiratory Rate [Bilateral ] Blood Pressure 111/77 157/58 157/58 O2 Sat by Pulse 100 95 98 Oximetry 04/05/19 04/05/19 04/05/19 01:30 01:33 01:55 Temperature Pulse Rate Pulse Rate [ 82 Bilateral] Respiratory 18 Rate Respiratory 22 Rate [Bilateral ] Blood Pressure 157/58 O2 Sat by Pulse 96 Oximetry 04/05/19 02:00 Temperature Pulse Rate Pulse Rate [ Bilateral] Respiratory Rate Respiratory Rate [Bilateral ] Blood Pressure 111/77 O2 Sat by Pulse 97 Oximetry ED Medical Decision Making - Lab Data Result diagrams: 04/05/19 01:18 04/05/19 01:18 Lab Results 04/05/19 04/05/19 Range/Units 01:18 01:18 WBC 10.9 (4.5-11.0) K/mm3 RBC 4.48 (3.65-5.03) M/mm3 Hgb 12.3 (11.8-15.2) gm/dl Hct 36.8 (35.5-45.6) % MCV 82 L (84-94) fl MCH 28 (28-32) pg MCHC 34 (32-34) % RDW 14.6 (13.2-15.2) % Plt Count 410 (140-440) K/mm3 Lymph % (Auto) 17.5 (13.4-35.0) % [place] % (Auto) 10.7 H (0.0-7.3) % Eos % (Auto) 1.9 (0.0-4.3) % Baso % (Auto) 1.1 (0.0-1.8) % Lymph # 1.9 (1.2-5.4) K/mm3 [place] # 1.2 H (0.0-0.8) K/mm3 Eos # 0.2 (0.0-0.4) K/mm3 Baso # 0.1 (0.0-0.1) K/mm3 Seg Neutrophils % 68.8 (40.0-70.0) % Seg Neutrophils # 7.5 (1.8-7.7) K/mm3 Sodium 136 L (137-145) mmol/L Potassium 3.9 (3.6-5.0) mmol/L Chloride 100 (98-107) mmol/L Carbon Dioxide 24 (22-30) mmol/L Anion Gap 16 mmol/L BUN 12 (9-20) mg/dL Creatinine 0.9 (0.8-1.5) mg/dL Estimated GFR > 60 ml/min BUN/Creatinine Ratio 13 % Glucose 101 H (75-100) mg/dL Calcium 8.4 (8.4-10.2) mg/dL Total Bilirubin 0.50 (0.1-1.2) mg/dL AST 23 (5-40) units/L ALT 17 (7-56) units/L Alkaline Phosphatase 93 (35-129) units/L Total Protein 6.1 L (6.3-8.2) g/dL Albumin 3.2 L (3.9-5) g/dL Albumin/Globulin Ratio 1.1 % - Radiology Data Ordering Physician: MORGAN BUSTAMANTE MD Date of Service: 04/05/19 Procedure(s): XR chest 1V ap Accession Number(s): [id number] cc: MORGAN BUSTAMANTE MD Fluoro Time In Minutes: CHEST 1 VIEW, 04/05/2019 1:43 AM CLINICAL INFORMATION/INDICATION: Chest pain. Productive cough. COMPARISON: Chest radiograph, 02/13/2019 FINDINGS: SUPPORT DEVICES: None. HEART: Cardiac silhouette is normal in size. LUNGS/PLEURA: There is no focal airspace consolidation or significant pleural effusion. ADDITIONAL FINDINGS: No additional acute findings. IMPRESSION: 1. No evidence of acute cardiopulmonary process. Signer Name: Suzan Yanes MD Signed: 04/05/2019 2:18 AM Workstation Name: [id number] Transcribed By: KATYA Dictated By: Suzan Yanes MD Electronically Authenticated By: Suzan Yanes MD Signed Date/Time: 04/05/198 - Medical Decision Making Patient is a 83-year-old male with past medical history of COPD who appears to have a acute bronchitis associated with his chronic bronchitis. Patient's given a neb treatment for his very mild wheeze. Patient's O2 sat is 96% on his 2 L of oxygen. Patient does not appear to warrant admission at this time. Critical care attestation.: If time is entered above; I have spent that time in minutes in the direct care of this critically ill patient, excluding procedure time. ED Disposition Clinical Impression: Acute exacerbation of chronic bronchitis Disposition: DC-01 TO HOME OR SELFCARE Is pt being admited?: No Does the pt Need Aspirin: No Condition: Stable Instructions: Chronic Bronchitis (ED), Acute Bronchitis (ED) Time of Disposition: 02:48
[2019-04-05] MEDS ORDERED: traMADol 50 MG TAB PO ONE (02:49)
[2019-04-05 03:54] VITALS: BP 140/71
== END 2019-04-05 03:53 | disposition home or self-care (01) ==
LOC: ED 00:39
DX: J44.1 Chronic obstructive pulmonary disease with (acute) exacerbation (principal); I11.0 Hypertensive heart disease with heart failure; I50.9 Heart failure, unspecified; Z98.890 Other specified postprocedural states; Z79.899 Other long term (current) drug therapy; Z88.0 Allergy status to penicillin
CPT/HCPCS: 36415; 71045; 80053; 85025; 94640; 96374; 99284; J2930; 94644

== ENCOUNTER 2020-03-16 13:27 | Inpatient (IN) | payer MEDICARE ==
--- NOTE | 2020-03-16 14:22 | Event Note ---
ED Screening Note ED Screening Note: Patient presents for bilateral lower extremity edema and discoloration He has 4+ pitting edema to the bilateral lower extremities He also has shortness of breath and on exam likely has pulmonary edema with rales Able to use the Doppler to obtain pulses in the bilateral lower extremities This initial assessment/diagnostic orders/clinical plan/treatment(s) is/are subject to change based on patients health status, clinical progression and re- assessment by fellow clinical providers in the ED. Further treatment and workup at subsequent clinical providers discretion. Patient/guardian urged not to elope from the ED as their condition may be serious if not clinically assessed and managed. Initial orders include: Labs, chest x-ray, EKG MAIN ED Likely CHF exacerbation and will need admission
--- NOTE | 2020-03-16 14:53 | XRay Report ---
CHEST 2 VIEWS INDICATION / CLINICAL INFORMATION: SOB, BLE edema. COMPARISON: 02/03/2020 FINDINGS: SUPPORT DEVICES: None. HEART / MEDIASTINUM: No significant abnormality. LUNGS / PLEURA: No significant pulmonary or pleural abnormality. No pneumothorax. ADDITIONAL FINDINGS: No significant additional findings. IMPRESSION: Chronic interstitial change is present. No definite acute disease or interval change from 02/03/2020 Signer Name: Tucker Rey MD FACR Signed: 03/16/2020 2:49 PM Workstation Name: [id number]
--- NOTE | 2020-03-16 15:36 | Vascular Lab Report ---
DUPLEX DOPPLER LOWER EXTREMITY VEINS, BILATERAL INDICATION / CLINICAL INFORMATION: BLE edema. TECHNIQUE: Duplex doppler imaging was performed through the veins of both lower extremities using venous génesis malina and other maneuvers. COMPARISON: None available. FINDINGS: RIGHT COMMON FEMORAL VEIN: Negative. RIGHT FEMORAL VEIN: Negative. RIGHT POPLITEAL VEIN: Negative. RIGHT CALF VEINS: Negative. LEFT COMMON FEMORAL VEIN: Negative. LEFT FEMORAL VEIN: Negative. LEFT POPLITEAL VEIN: Negative. LEFT CALF VEINS: Negative. ADDITIONAL FINDINGS: None. IMPRESSION: 1. No sonographic evidence for DVT in either lower extremity. Signer Name: Jesus Benton MD Signed: 03/16/2020 3:32 PM Workstation Name: [id number]
[2020-03-16 16:20] LABS: Basophils # (Auto) 0.1 K/mm3 (0.0-0.1); Basophils % (Auto) 0.4 % (0.0-1.8); Eosinophils # (Auto) 0.1 K/mm3 (0.0-0.4); Eosinophils % (Auto) 0.6 % (0.0-4.3); Hematocrit 36.8 % (35.5-45.6); Hemoglobin 12.9 gm/dl (11.8-15.2); Lymphocytes # (Auto) 1.2 K/mm3 (1.2-5.4); Lymphocytes % (Auto) 8.9 % (13.4-35.0); Mean Corpuscular HGB Conc 35 % (32-34); Mean Corpuscular Volume 82 fl (84-94); Monocytes # (Auto) 1.3 K/mm3 (0.0-0.8); Monocytes % (Auto) 9.3 % (0.0-7.3); Platelet Count 364 K/mm3 (140-440); Red Blood Count 4.47 M/mm3 (3.65-5.03); Red Cell Distribution Width 13.9 % (13.2-15.2)
[2020-03-16 16:29] LABS: INR 1.04 (0.87-1.13)
[2020-03-16 16:43] LABS: Alanine Aminotransferase 43 units/L (7-56); Albumin 3.4 g/dL (3.9-5); BUN/Creatinine Ratio 43; Blood Urea Nitrogen 34 mg/dL (9-20); Calcium 9.6 mg/dL (8.4-10.2); Hemolysis Index 10
[2020-03-16 16:54] LABS: Chol/HDL Ratio 2.01 %; HDL Cholesterol 69 mg/dL (40-59); LDL Cholesterol,Direct 73 mg/dL (50-130)
[2020-03-16] MEDS ORDERED: POTASSIUM CHLORIDE ER 20 MEQ TAB PO ONE (17:08)
--- NOTE | 2020-03-16 17:15 | Emergency Department Report ---
HPI - General Chief Complaint: Dyspnea/Respdistress Time Seen by Provider: 03/16/20 14:19 - HPI HPI: Room 1 The patient is an 84-year-old male present with a chief complaint of bilateral lower extremity edema. The patient was reportedly brought in by family secondary to his legs being discolored, swollen and weeping fluid. The patient states he came to emergency department because his legs have been swollen. When asked to give a rough estimate of how long this swelling has been present the patient does not give an answer ED Past Medical Hx - Past Medical History Previous Medical History?: Yes Hx Hypertension: Yes Hx Congestive Heart Failure: Yes Hx Asthma: Yes Hx COPD: Yes - Surgical History Past Surgical History?: Yes Additional Surgical History: Hernia repair - Family History Family history: no significant - Social History Smoking Status: Former Smoker Substance Use Type: None - Medications Home Medications: Home Medications Medication Instructions Recorded Confirmed Last Taken Type Calcium Carbonate/Vitamin D3 600 tab-cap PO QDAY MDD supplement 02/14/19 02/03/20 02/03/20 History [Calcium 600 with Vit D Chew Tb] Cyanocobalamin (Vitamin B-12) 1,000 mcg PO QDAY 02/14/19 02/03/20 02/03/20 History [Vitamin B12] Simvastatin 40 mg PO QHS 02/14/19 02/03/20 02/02/20 History Aspirin [Aspirin BABY CHEW TAB] 81 mg PO HS 02/03/20 02/03/20 02/03/20 History Fluticasone/Vilanterol [Breo 100 mcg IH DAILY 02/03/20 02/03/20 02/03/20 History Ellipta 100-25 Mcg INH] Furosemide [Lasix TAB] 40 mg PO BID 02/03/20 02/03/20 02/03/20 History LORazepam [Lorazepam] 1 mg PO DAILY 02/03/20 02/03/20 02/03/20 History Losartan [Cozaar] 100 mg PO QDAY 02/03/20 02/03/20 02/03/20 History Multivitamin [Multiple Vitamins] 1 each PO DAILY 02/03/20 02/03/20 02/03/20 History Potassium Chloride [K-Dur] 10 meq PO QDAY 02/03/20 02/03/20 02/02/20 History Tiotropium [place] [Spiriva 2 spray IH HS 02/03/20 02/03/20 02/02/20 History Respimat] guaiFENesin [Mucus Relief ER] 1,200 mg PO HS 02/03/20 02/03/20 Unknown History methOCARBAMOL 750 mg PO BID PRN 02/03/20 02/03/20 Unknown History ALBUTEROL NEB's [Proventil 0.083% 2.5 mg IH Q4HRT PRN #7 nebu 02/09/20 Unknown Rx NEBS] ALBUTEROL NEB's [Proventil 0.083% 5 mg IH TID PRN #20 neb 02/09/20 Unknown Rx NEBS] Acetaminophen [Acetaminophen TAB] 650 mg PO Q4H PRN tablet 02/09/20 Unknown Rx Arformoterol Nebu [Brovana Nebu] 15 mcg IH Q12HRT #1 ml 02/09/20 Unknown Rx Budesonide [Pulmicort Respules] 0.5 mg IH Q12HRT #1 nebu 02/09/20 Unknown Rx Calc Carb/Vit D 500 mg-200 Uni 1 each PO DAILY tablet 02/09/20 Unknown Rx [Oysco D 500 mg-200 Unit] Cyanocobalamin [Vitamin B-12] 1,000 mcg PO QDAY tablet 02/09/20 Unknown Rx Losartan [Cozaar] 100 mg PO QDAY #30 tablet 02/09/20 Unknown Rx Multivitamin Tab [Multiple Vitamin 1 each PO DAILY #30 tablet 02/09/20 Unknown Rx TAB (Theragran)] guaiFENesin ER [Mucinex ER] 1,200 mg PO QHS tablet 02/09/20 Unknown Rx methOCARBAMOL [Robaxin TAB] 750 mg PO BID PRN tablet 02/09/20 Unknown Rx ED Review of Systems ROS: Stated complaint: SORES ON REAR END, COPD, CHF Other details as noted in HPI Constitutional: no symptoms reported Respiratory: denies: shortness of breath (Patient denies) Cardiovascular: denies: chest pain Endocrine: no symptoms reported Musculoskeletal: back pain Skin: change in color Hematological/Lymphatic: other (Bilateral lower extremity edema) Physical Exam - Physical Exam Vital Signs: Vital Signs 03/16/20 14:05 Temperature 97.4 F L Pulse Rate 83 Respiratory 20 Rate Blood Pressure 114/68 [Right] O2 Sat by Pulse 98 Oximetry Physical Exam: GENERAL: The patient is well-developed well-nourished male lying on stretcher not appearing to be in acute distress. [] HEENT: Normocephalic. Atraumatic. Extraocular motions are intact. Patient has moist mucous membranes. NECK: Supple. Trachea midline CHEST/LUNGS: Clear to auscultation. There is no respiratory distress noted. HEART/CARDIOVASCULAR: Regular. There is no tachycardia. There is no gallop rub or murmur. ABDOMEN: Abdomen is soft, nontender. Patient has normal bowel sounds. There is no abdominal distention. SKIN: There is no rash. There is 3+ bilateral lower extremity edema. There is no diaphoresis. There is pale chronic appearing erythema overlying the lower extremities bilaterally NEURO: The patient is awake, alert, and oriented. The patient is cooperative. The patient has no focal neurologic deficits. The patient has normal speech MUSCULOSKELETAL: There is no evidence of acute injury. ED Course Vital Signs 03/16/20 14:05 Temperature 97.4 F L Pulse Rate 83 Respiratory 20 Rate Blood Pressure 114/68 [Right] O2 Sat by Pulse 98 Oximetry ED Medical Decision Making - Lab Data Result diagrams: 03/16/20 15:48 03/16/20 15:48 Laboratory Tests 03/16/20 03/16/20 03/16/20 15:48 15:48 15:48 WBC 13.6 H RBC 4.47 Hgb 12.9 Hct 36.8 MCV 82 L MCH 29 MCHC 35 H RDW 13.9 Plt Count 364 Lymph % (Auto) 8.9 L Coal % (Auto) 9.3 H Eos % (Auto) 0.6 Baso % (Auto) 0.4 Lymph # (Auto) 1.2 Coal # (Auto) 1.3 H Eos # (Auto) 0.1 Baso # (Auto) 0.1 Seg Neutrophils % 80.8 H Seg Neutrophils # 11.0 H PT 13.5 INR 1.04 APTT 30.0 Sodium 117 L* Potassium 2.5 L* Chloride 73.4 L Carbon Dioxide 30 Anion Gap 16 BUN 34 H Creatinine 0.8 Estimated GFR > 60 BUN/Creatinine Ratio 43 Glucose 99 Calcium 9.6 Total Bilirubin 0.90 AST 54 H ALT 43 Alkaline Phosphatase 127 Troponin T 0.052 H NT-Pro-B Natriuret Pep 711.6 Total Protein 7.4 Albumin 3.4 L Albumin/Globulin Ratio 0.9 Triglycerides 72 Cholesterol 139 LDL Cholesterol Direct 73 HDL Cholesterol 69 H Cholesterol/HDL Ratio 2.01 - EKG Data -: EKG Interpreted by Me EKG shows normal: sinus rhythm Rate: normal - EKG Data When compared to previous EKG there are: previous EKG unavailable Interpretation: other (No ischemic changes seen) - Radiology Data Radiology results: report reviewed (Chest x-ray, bilateral lower extremity Doppler), image reviewed (Chest x-ray, bilateral lower extremity Doppler) interpreted by me: Chest x-ray-no focal infiltrate, no pneumothorax. No foreign body seen Findings [address] [address] XRay Report Signed Patient: RENEE NUNO JR MR#: [id number] : Acct:[id number] Age/Sex: 84 / M ADM Date: 03/16/20 Loc: ED Attending Dr: Ordering Physician: EDELMIRA FELDER Date of Service: 03/16/20 Procedure(s): XR chest routine 2V Accession Number(s): [id number] cc: EDELMIRA FELDER Fluoro Time In Minutes: CHEST 2 VIEWS INDICATION / CLINICAL INFORM ATION: SOB, BLE edema. COMPARISON: 02/03/2020 FINDINGS: SUPPORT DEVICES: None. HEART / MEDIASTINUM: No significant abnormality. LUNGS / PLEURA: No significant pulmonary or pleural abnormality. No pneumothorax. ADDITIONAL FINDINGS: No significant additional findings. IMPRESSION: Chronic interstitial change is present. No definite acute disease or interval change from 02/03/2020 Signer Name: Tucker Rey MD FACR Signed: 03/16/2020 2:49 PM Workstation Name: [id number] Transcribed By: MS Dictated By: Tucker Rey MD Electronically Authenticated By: Tucker Rey MD Signed Date/Time: 03/16/20 144 DD/ 47 TD/TT: Findings [address] [address] Vascular Lab Report Signed Patient: RENEE NUNO JR MR#: [id number] : 1935 Acct:[id number] Age/Sex: 84 / M ADM Date: 03/16/20 Loc: ED Attending Dr: Ordering Physician: EDELMIRA FELDER Date of Service: 03/16/20 Procedure(s): VL venous duplex LE JOSEPH Accession Number(s): [id number] cc: EDELMIRA FELDER DUPLEX DOPPLER LOWER EXTREMITY VEINS, BILATERAL INDICATION / CLINICAL INFORMATION: BLE edema. TECHNIQUE: Duplex doppler imaging was performed through the veins of both lower extremities using venous compression and other maneuvers. COMPARISON: None available. FINDINGS: RIGHT COMMON FEMORAL VEIN: Negative. RIGHT FEMORAL VEIN: Negative. RIGHT POPLITEAL VEIN: Negative. RIGHT CALF VEINS: Negative. LEFT COMMON FEMORAL VEIN: Negative. LEFT FEMORAL VEIN: Negative. LEFT POPLITEAL VEIN: Negative. LEFT CALF VEINS: Negative. ADDITIONAL FINDINGS: None. IMPRESSION: 1. No sonographic evidence for DVT in either lower extremity. Signer Name: Jesus Benton MD Signed: 03/16/2020 3:32 PM Workstation Name: [id number] Transcribed By: SS Dictated By: Jesus Benton MD Electronically Authenticated By: Jesus Benton MD Signed Date/Time: 03/16/20 1532 DD/ 1531 TD/TT: - Differential Diagnosis CHF, venous stasis Critical care attestation.: If time is entered above; I have spent that time in minutes in the direct care of this critically ill patient, excluding procedure time. ED Disposition Clinical Impression: Hyponatremia, Hypokalemia, Elevated troponin, Peripheral edema Disposition: OP ADMIT IP TO THIS HOSP Is pt being admited?: Yes Does the pt Need Aspirin: No Condition: Stable Referrals: PRIMARY CARE, [Primary Care Provider] - 3-5 Days Time of Disposition: 17:20 (Hospitalist paged (Dr. De La Fuente))
[2020-03-16] MEDS: POTASSIUM CHLORIDE 10 MEQ 10 MEQ/100 ML BAG IV SCH ×3 (18:24→21:11)
[2020-03-16] MEDS ORDERED: oxyCODONE /ACETAMINOPHEN 5-325MG TAB PO ONE (20:52)
[2020-03-17] MEDS ORDERED: POTASSIUM CHLORIDE 10 MEQ 10 MEQ/100 ML BAG IV ONE (00:10)
[2020-03-17] MEDS: POTASSIUM CHLORIDE 10 MEQ 10 MEQ/100 ML BAG IV SCH ×5 (00:13→15:48)
[2020-03-17] MEDS ORDERED: ALBUTEROL 2.5 MG/3 ML NEBU IH PRN (00:35)
[2020-03-17] MEDS ORDERED: METOCLOPRAMIDE 10 MG/2 ML INJ IV PRN (00:50)
[2020-03-17] MEDS ORDERED: HYDROmorphone 1 MG/1 ML INJ IV PRN (00:50)
[2020-03-17] MEDS ORDERED: ONDANSETRON 4 MG/2 ML INJ IV PRN (00:50)
--- NOTE | 2020-03-17 00:50 | History and Physical Report ---
History of Present Illness Date of examination: 03/16/20 Date of admission: 03/16/20 17:22 Chief complaint: Bilateral leg swelling for 1 week Shortness of breath for 1 week History of present illness: 84-year-old May with COPD and possible pulmonary hypertension and hypertension comes in for severe swelling of both lower extremities. Also shortness of breath on minimal exertion.. Also orthopnea present. No chest pain. No fever or chills. No recent exposure to coronavirus. Patient has severe COPD and CHF and hypertension. Patient also has COPD. - Past Medical History Previous Medical History?: Yes Hx Hypertension: Yes Hx Congestive Heart Failure: Yes Hx Asthma: Yes Hx COPD: Yes - Surgical History Past Surgical History?: Yes Additional Surgical History: Hernia repair - Family History Family history: no significant - Social History Smoking Status: Former Smoker Substance Use Type: None - Medications Home Medications: Home Medications Medication Instructions Recorded Confirmed Last Taken Type Calcium Carbonate/Vitamin D3 600 tab-cap PO QDAY MDD supplement 02/14/19 02/03/20 02/03/20 History [Calcium 600 with Vit D Chew Tb] Cyanocobalamin (Vitamin B-12) 1,000 mcg PO QDAY 02/14/19 02/03/20 02/03/20 History [Vitamin B12] Simvastatin 40 mg PO QHS 02/14/19 02/03/20 02/02/20 History Aspirin [Aspirin BABY CHEW TAB] 81 mg PO HS 02/03/20 02/03/20 02/03/20 History Fluticasone/Vilanterol [Breo 100 mcg IH DAILY 02/03/20 02/03/20 02/03/20 History Ellipta 100-25 Mcg INH] Furosemide [Lasix TAB] 40 mg PO BID 02/03/20 02/03/20 02/03/20 History LORazepam [Lorazepam] 1 mg PO DAILY 02/03/20 02/03/20 02/03/20 History Losartan [Cozaar] 100 mg PO QDAY 02/03/20 02/03/20 02/03/20 History Multivitamin [Multiple Vitamins] 1 each PO DAILY 02/03/20 02/03/20 02/03/20 History Potassium Chloride [K-Dur] 10 meq PO QDAY 02/03/20 02/03/20 02/02/20 History Tiotropium [place] [Spiriva 2 spray IH HS 02/03/20 02/03/20 02/02/20 History Respimat] guaiFENesin [Mucus Relief ER] 1,200 mg PO HS 02/03/20 02/03/20 Unknown History methOCARBAMOL 750 mg PO BID PRN 02/03/20 02/03/20 Unknown History ALBUTEROL NEB's [Proventil 0.083% 2.5 mg IH Q4HRT PRN #7 nebu 02/09/20 Unknown Rx NEBS] ALBUTEROL NEB's [Proventil 0.083% 5 mg IH TID PRN #20 neb 02/09/20 Unknown Rx NEBS] Acetaminophen [Acetaminophen TAB] 650 mg PO Q4H PRN tablet 02/09/20 Unknown Rx Arformoterol Nebu [Brovana Nebu] 15 mcg IH Q12HRT #1 ml 02/09/20 Unknown Rx Budesonide [Pulmicort Respules] 0.5 mg IH Q12HRT #1 nebu 02/09/20 Unknown Rx Calc Carb/Vit D 500 mg-200 Uni 1 each PO DAILY tablet 02/09/20 Unknown Rx [Oysco D 500 mg-200 Unit] Cyanocobalamin [Vitamin B-12] 1,000 mcg PO QDAY tablet 02/09/20 Unknown Rx Losartan [Cozaar] 100 mg PO QDAY #30 tablet 02/09/20 Unknown Rx Multivitamin Tab [Multiple Vitamin 1 each PO DAILY #30 tablet 02/09/20 Unknown Rx TAB (Theragran)] guaiFENesin ER [Mucinex ER] 1,200 mg PO QHS tablet 02/09/20 Unknown Rx methOCARBAMOL [Robaxin TAB] 750 mg PO BID PRN tablet 02/09/20 Unknown Rx Review of Systems ROS: Stated complaint: SORES ON REAR END, COPD, CHF Other details as noted in HPI Constitutional: no symptoms reported Respiratory: denies: shortness of breath (Patient denies) Cardiovascular: denies: chest pain Endocrine: no symptoms reported Musculoskeletal: back pain Skin: change in color Hematological/Lymphatic: other (Bilateral lower extremity edema) Medications and Allergies Allergies Allergy/AdvReac Type Severity Reaction Status Date / Time Penicillins Allergy Anaphylaxis Verified 02/13/19 10:54 Home Medications Medication Instructions Recorded Confirmed Last Taken Type Calcium Carbonate/Vitamin D3 600 tab-cap PO QDAY MDD supplement 02/14/19 02/03/20 02/03/20 History [Calcium 600 with Vit D Chew Tb] Cyanocobalamin (Vitamin B-12) 1,000 mcg PO QDAY 02/14/19 02/03/20 02/03/20 Hist ory [Vitamin B12] Simvastatin 40 mg PO QHS 02/14/19 02/03/20 02/02/20 History Aspirin [Aspirin BABY CHEW TAB] 81 mg PO HS 02/03/20 02/03/20 02/03/20 History Fluticasone/Vilanterol [Breo 100 mcg IH DAILY 02/03/20 02/03/20 02/03/20 History Ellipta 100-25 Mcg INH] Furosemide [Lasix TAB] 40 mg PO BID 02/03/20 02/03/20 02/03/20 History LORazepam [Lorazepam] 1 mg PO DAILY 02/03/20 02/03/20 02/03/20 History Losartan [Cozaar] 100 mg PO QDAY 02/03/20 02/03/20 02/03/20 History Multivitamin [Multiple Vitamins] 1 each PO DAILY 02/03/20 02/03/20 02/03/20 History Potassium Chloride [K-Dur] 10 meq PO QDAY 02/03/20 02/03/20 02/02/20 History Tiotropium [place] [Spiriva 2 spray IH HS 02/03/20 02/03/20 02/02/20 History Respimat] guaiFENesin [Mucus Relief ER] 1,200 mg PO HS 02/03/20 02/03/20 Unknown History methOCARBAMOL 750 mg PO BID PRN 02/03/20 02/03/20 Unknown History ALBUTEROL NEB's [Proventil 0.083% 2.5 mg IH Q4HRT PRN #7 nebu 02/09/20 Unknown Rx NEBS] ALBUTEROL NEB's [Proventil 0.083% 5 mg IH TID PRN #20 neb 02/09/20 Unknown Rx NEBS] Acetaminophen [Acetaminophen TAB] 650 mg PO Q4H PRN tablet 02/09/20 Unknown Rx Arformoterol Nebu [Brovana Nebu] 15 mcg IH Q12HRT #1 ml 02/09/20 Unknown Rx Budesonide [Pulmicort Respules] 0.5 mg IH Q12HRT #1 nebu 02/09/20 Unknown Rx Calc Carb/Vit D 500 mg-200 Uni 1 each PO DAILY tablet 02/09/20 Unknown Rx [[place] D 500 mg-200 Unit] Cyanocobalamin [Vitamin B-12] 1,000 mcg PO QDAY tablet 02/09/20 Unknown Rx Losartan [Cozaar] 100 mg PO QDAY #30 tablet 02/09/20 Unknown Rx Multivitamin Tab [Multiple Vitamin 1 each PO DAILY #30 tablet 02/09/20 Unknown Rx TAB (Theragran)] guaiFENesin ER [Mucinex ER] 1,200 mg PO QHS tablet 02/09/20 Unknown Rx methOCARBAMOL [Robaxin TAB] 750 mg PO BID PRN tablet 02/09/20 Unknown Rx Active Meds: Active Medications Albuterol (Albuterol 2.5 Mg/3 Ml Nebu) 2.5 mg IH Q4HRT PRN PRN Reason: Shortness Of Breath Arformoterol Tartrate (Arformoterol 15 Mcg/2 Ml Nebu) 15 mcg IH Q12HRT RUBIO Aspirin (Aspirin 81 Mg Tab Chew) 81 mg PO HS RUBIO Budesonide (Budesonide 0.5 Mg/2 Ml Nebu) 0.5 mg IH Q12HRT RUBIO Calcium/Vitamin D (Calcium Carbonate/Vitamin D3 500 Mg-200 Unit Tab) 1 each PO DAILY RUBIO Cyanocobalamin (Cyanocobalamin (Vit B-12) 1000 Mcg Tab) 1,000 mcg PO QDAY RUBIO Lorazepam (Lorazepam 1 Mg Tab) 1 mg PO DAILY [facility] Losartan Potassium (Losartan 50 Mg Tab) 100 mg PO QDAY [facility] Miscellaneous Medication (Fluticasone/Vilanterol [Breo Ellipta 100-25 Mcg Inh]) 100 mcg IH DAILY [facility] Miscellaneous Medication (Methocarbamol) 750 mg PO BID PRN PRN Reason: Muscle Spasm Miscellaneous Medication (Simvastatin [Simvastatin]) 40 mg PO QHS [facility] Exam - Constitutional Vitals: Temp Pulse Resp BP Pulse Ox 97.4 F L 85 16 108/59 91 03/16/20 14:05 03/16/20 19:00 03/16/20 19:00 03/16/20 19:00 03/16/20 19:00 General appearance: Present: no acute distress, mild distress, well-nourished - EENT Eyes: Present: PERRL ENT: hearing intact, clear oral mucosa - Neck Neck: Present: supple, normal ROM - Respiratory Respiratory effort: normal Respiratory: bilateral: CTA - Cardiovascular Heart rate: 78 Rhythm: regular Heart Sounds: Present: S1 & S2. Absent: rub, click - Extremities Extremities: pulses symmetrical Extremity abnormal: edema (4+ pedal edema) Peripheral Pulses: within normal limits - Abdominal General gastrointestinal: Present: soft, non-tender, non-distended, normal bowel sounds Male genitourinary: Present: normal - Integumentary Integumentary: Present: clear, warm, dry - Musculoskeletal Musculoskeletal: gait normal, strength equal bilaterally - Psychiatric Psychiatric: appropriate mood/affect, intact judgment & insight - Neurologic Neurologic: CNII-XII intact, moves all extremities - Allied Health Allied health notes reviewed: nursing, case management HEART Score - HEART Score History: Highly suspicious Age: > 65 Risk factors: > 3 risk factors or hx of atherosclerotic disease Troponin: Troponin T 0.052 ng/mL (0.00-0.029) H 03/16/20 15:48 - Critical Actions Critical Actions: 4-6 pts:12-16.6% risk of adverse cardiac event. Should be admitted Results - Labs CBC & Chem 7: 03/17/20 05:13 03/17/20 05:13 Labs: Laboratory Last Values WBC 13.6 K/mm3 (4.5-11.0) H 03/16/20 15:48 RBC 4.47 M/mm3 (3.65-5.03) 03/16/20 15:48 Hgb 12.9 gm/dl (11.8-15.2) 03/16/20 15:48 Hct 36.8 % (35.5-45.6) 03/16/20 15:48 MCV 82 fl (84-94) L 03/16/20 15:48 MCH 29 pg (28-32) 03/16/20 15:48 MCHC 35 % (32-34) H 03/16/20 15:48 RDW 13.9 % (13.2-15.2) 03/16/20 15:48 Plt Count 364 K/mm3 (140-440) 03/16/20 15:48 Lymph % (Auto) 8.9 % (13.4-35.0) L 03/16/20 15:48 [place] % (Auto) 9.3 % (0.0-7.3) H 03/16/20 15:48 Eos % (Auto) 0.6 % (0.0-4.3) 03/16/20 15:48 Baso % (Auto) 0.4 % (0.0-1.8) 03/16/20 15:48 Lymph # (Auto) 1.2 K/mm3 (1.2-5.4) 03/16/20 15:48 [place] # (Auto) 1.3 K/mm3 (0.0-0.8) H 03/16/20 15:48 Eos # (Auto) 0.1 K/mm3 (0.0-0.4) 03/16/20 15:48 Baso # (Auto) 0.1 K/mm3 (0.0-0.1) 03/16/20 15:48 Seg Neutrophils % 80.8 % (40.0-70.0) H 03/16/20 15:48 Seg Neutrophils # 11.0 K/mm3 (1.8-7.7) H 03/16/20 15:48 PT 13.5 Sec. (12.2-14.9) 03/16/20 15:48 INR 1.04 (0.87-1.13) 03/16/20 15:48 APTT 30.0 Sec. (24.2-36.6) 03/16/20 15:48 Sodium 117 mmol/L (137-145) L* 03/16/20 15:48 Potassium 2.5 mmol/L (3.6-5.0) L* 03/16/20 15:48 Chloride 73.4 mmol/L (98-107) L 03/16/20 15:48 Carbon Dioxide 30 mmol/L (22-30) 03/16/20 15:48 Anion Gap 16 mmol/L 03/16/20 15:48 BUN 34 mg/dL (9-20) H 03/16/20 15:48 Creatinine 0.8 mg/dL (0.8-1.3) 03/16/20 15:48 Estimated GFR > 60 ml/min 03/16/20 15:48 BUN/Creatinine Ratio 43 % 03/16/20 15:48 Glucose 99 mg/dL (75-100) 03/16/20 15:48 Calcium 9.6 mg/dL (8.4-10.2) 03/16/20 15:48 Total Bilirubin 0.90 mg/dL (0.1-1.2) 03/16/20 15:48 AST 54 units/L (5-40) H 03/16/20 15:48 ALT 43 units/L (7-56) 03/16/20 15:48 Alkaline Phosphatase 127 units/L (35-129) 03/16/20 15:48 Troponin T 0.052 ng/mL (0.00-0.029) H 03/16/20 15:48 NT-Pro-B Natriuret Pep 711.6 pg/mL (0-900) 03/16/20 15:48 Total Protein 7.4 g/dL (6.3-8.2) 03/16/20 15:48 Albumin 3.4 g/dL (3.9-5) L 03/16/20 15:48 Albumin/Globulin Ratio 0.9 % 03/16/20 15:48 Triglycerides 72 mg/dL (2-149) 03/16/20 15:48 Cholesterol 139 mg/dL (50-199) 03/16/20 15:48 LDL Cholesterol Direct 73 mg/dL (50-130) 03/16/20 15:48 HDL Cholesterol 69 mg/dL (40-59) H 03/16/20 15:48 Cholesterol/HDL Ratio 2.01 % 03/16/20 15:48 - Imaging and Cardiology EKG: report reviewed (Sinus rhythm no acute ST-T wave changes) Chest x-ray: report reviewed Imaging and Cardiology: Duplex scan of the lower extremity No sonographic evidence for DVT in either lower extremity Chest x-ray Chronic interstitial changes present No definite acute disease or interval change from 02/03/2020 Assessment and Plan Advance Directives: Yes (Full code) VTE prophylaxis?: Chemical Plan of care discussed with patient/family: Yes - Patient Problems (1) Acute exacerbation of CHF (congestive heart failure) Current Visit: Yes Status: Acute Qualifiers: Heart failure type: combined systolic and diastolic Qualified Code(s): I50.43 - 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 Plan to address problem: Patient to get echocardiogram IV Lasix initiated Zaroxolyn 5 mg orally 40 minutes before Lasix Daily weights and intake output chart (2) Bilateral lower extremity edema Current Visit: Yes Status: Acute Plan to address problem: Possibly secondary to pulmonary hypertension Patient has history of severe COPD We will get echocardiogram IV Lasix in the meantime (3) Hyponatremia Current Visit: Yes Status: Acute Plan to address problem: Severe Check urine osmolarity and serum osmolality 3% saline 500 cc initiated Normal saline not initiated because of the patient's pedal edema and CHF exacerbation (4) Hypokalemia Current Visit: Yes Status: Acute Plan to address problem: Supplemented agressively (5) Elevated troponin Current Visit: Yes Status: Acute Plan to address problem: Possible troponin leak Will defer to cardiology (6) DVT prophylaxis Current Visit: Yes Status: Acute Plan to address problem: On heparin and GI prophylaxis
[2020-03-17] MEDS: ARFORMOTEROL 15 MCG/2 ML NEBU IH SCH ×3 (03:33→21:38)
[2020-03-17] MEDS: BUDESONIDE 0.5 MG/2 ML NEBU IH SCH ×3 (03:33→21:39)
[2020-03-17] MEDS ORDERED: SODIUM CHLORIDE 3% 500 ML IV ONE (04:49)
[2020-03-17 05:31] LABS: Basophils % (Auto) 0.3 % (0.0-1.8); Eosinophils # (Auto) 0.1 K/mm3 (0.0-0.4); Eosinophils % (Auto) 0.4 % (0.0-4.3); Hematocrit 32.6 % (35.5-45.6); Hemoglobin 11.5 gm/dl (11.8-15.2); Lymphocytes # (Auto) 0.9 K/mm3 (1.2-5.4); Lymphocytes % (Auto) 6.9 % (13.4-35.0); Mean Corpuscular HGB Conc 35 % (32-34); Mean Corpuscular Volume 82 fl (84-94); Monocytes # (Auto) 1.2 K/mm3 (0.0-0.8); Monocytes % (Auto) 9.1 % (0.0-7.3); Platelet Count 323 K/mm3 (140-440); Red Blood Count 3.99 M/mm3 (3.65-5.03); Red Cell Distribution Width 13.6 % (13.2-15.2)
[2020-03-17 05:51] LABS: Alanine Aminotransferase 36 units/L (7-56); Albumin 3.1 g/dL (3.9-5); BUN/Creatinine Ratio 38; Blood Urea Nitrogen 34 mg/dL (9-20); Calcium 9.1 mg/dL (8.4-10.2); Hemolysis Index 4
[2020-03-17] MEDS: metOLazone 5 MG TAB PO SCH ×2 (06:14→10:04)
[2020-03-17] MEDS: POTASSIUM CHLORIDE ER 20 MEQ TAB PO SCH ×3 (06:14→18:01)
[2020-03-17] MEDS: FUROSEMIDE 40 MG/4 ML INJ IV SCH ×2 (06:14→18:00)
[2020-03-17] MEDS ORDERED: metOLazone 5 MG TAB PO SCH (07:30)
[2020-03-17] MEDS ORDERED: LOSARTAN 50 MG TAB PO SCH (10:00)
[2020-03-17] MEDS ORDERED: NON-FORMULARY EACH (Fluticasone/Vilanterol [Breo Ellipta 100-25 Mcg Inh] 1 EACH Blst.W.Dev IH SCH (10:00)
[2020-03-17] MEDS: CALCIUM CARBONATE/VITAMIN D3 500 MG-200 UNIT TAB PO SCH (10:02)
[2020-03-17] MEDS: HEPARIN 5,000 UNIT/1 ML VIAL SUB-Q SCH ×2 (10:02→22:29)
[2020-03-17] MEDS: FAMOTIDINE 20 MG/2 ML INJ IV SCH ×2 (10:02→22:29)
[2020-03-17] MEDS: LORazepam 1 MG TAB PO SCH (10:02)
[2020-03-17] MEDS: CYANOCOBALAMIN (VIT B-12) 1000 MCG TAB PO SCH (10:02)
--- NOTE | 2020-03-17 10:41 | Progress Note ---
Assessment and Plan Assessment and plan: --Hyponatremia Current Visit: Yes Status: Acute Plan to address problem: Severe sodium 117 at admission Improved to 124, will DC 3% normal saline Closely monitor electrolytes, nephrology consulted -- Acute exacerbation of CHF (congestive heart failure) Current Visit: Yes Status: Acute Plan to address problem: Patient to get echocardiogram IV Lasix initiated Zaroxolyn 5 mg orally 40 minutes before Lasix Daily weights and intake output chart --Bilateral lower extremity edema Current Visit: Yes Status: Acute Plan to address problem: Possibly secondary to pulmonary hypertension Patient has history of severe COPD We will get echocardiogram IV Lasix in the meantime --Hypokalemia Current Visit: Yes Status: Acute -- Elevated troponin Current Visit: Yes Status: Acute Plan to address problem: Possible troponin leak Will defer to cardiology -- DVT prophylaxis Current Visit: Yes Status: Acute Plan to address problem: On heparin and GI prophylaxis Closely monitor the patient and adjust management as needed Plan of care reviewed with the patient and his nurse History Interval history: I have seen and examined the patient Patient's chart and medications reviewed Mild improvement of sodium No new complaints Vital signs noted Hospitalist Physical - Constitutional Vitals: Temp Pulse Resp BP Pulse Ox 97.9 F 81 20 121/68 94 03/17/20 08:36 03/17/20 09:03 03/17/20 09:03 03/17/20 08:36 03/17/20 10:34 General appearance: Present: no acute distress, mild distress, well-nourished - EENT Eyes: Present: PERRL, EOM intact - Neck Neck: Present: supple, normal ROM - Respiratory Respiratory effort: normal Respiratory: bilateral: diminished, negative: rales, rhonchi, wheezing - Cardiovascular Rhythm: regular Heart Sounds: Present: S1 & S2 - Extremities Extremities: no ischemia, No edema - Abdominal General gastrointestinal: soft, non-tender, non-distended, normal bowel sounds - Integumentary Integumentary: Present: clear, warm - Psychiatric Psychiatric: appropriate mood/affect, cooperative - Neurologic Neurologic: moves all extremities HEART Score - HEART Score Age: > 65 Risk factors: > 3 risk factors or hx of atherosclerotic disease Troponin: WBC 13.1 K/mm3 (4.5-11.0) H 03/17/20 05:13 RBC 3.99 M/mm3 (3.65-5.03) 03/17/20 05:13 Hgb 11.5 gm/dl (11.8-15.2) L 03/17/20 05:13 Hct 32.6 % (35.5-45.6) L 03/17/20 05:13 MCV 82 fl (84-94) L 03/17/20 05:13 MCH 29 pg (28-32) 03/17/20 05:13 MCHC 35 % (32-34) H 03/17/20 05:13 RDW 13.6 % (13.2-15.2) 03/17/20 05:13 Plt Count 323 K/mm3 (140-440) 03/17/20 05:13 Lymph % (Auto) 6.9 % (13.4-35.0) L 03/17/20 05:13 [place] % (Auto) 9.1 % (0.0-7.3) H 03/17/20 05:13 Eos % (Auto) 0.4 % (0.0-4.3) 03/17/20 05:13 Baso % (Auto) 0.3 % (0.0-1.8) 03/17/20 05:13 Lymph # (Auto) 0.9 K/mm3 (1.2-5.4) L 03/17/20 05:13 [place] # (Auto) 1.2 K/mm3 (0.0-0.8) H 03/17/20 05:13 Eos # (Auto) 0.1 K/mm3 (0.0-0.4) 03/17/20 05:13 Baso # (Auto) 0.0 K/mm3 (0.0-0.1) 03/17/20 05:13 Seg Neutrophils % 83.3 % (40.0-70.0) H 03/17/20 05:13 Seg Neutrophils # 10.9 K/mm3 (1.8-7.7) H 03/17/20 05:13 PT 13.5 Sec. (12.2-14.9) 03/16/20 15:48 INR 1.04 (0.87-1.13) 03/16/20 15:48 APTT 30.0 Sec. (24.2-36.6) 03/16/20 15:48 Sodium 117 mmol/L (137-145) L* 12/16/20 05:13 Potassium 3.8 mmol/L (3.6-5.0) D 03/17/20 05:13 Chloride 77.2 mmol/L (98-107) L 03/17/20 05:13 Carbon Dioxide 35 mmol/L (22-30) H 03/17/20 05:13 Anion Gap 9 mmol/L 03/17/20 05:13 BUN 34 mg/dL (9-20) H 03/17/20 05:13 Creatinine 0.9 mg/dL (0.8-1.3) 03/17/20 05:13 Estimated GFR > 60 ml/min 03/17/20 05:13 BUN/Creatinine Ratio 38 % 03/17/20 05:13 Glucose 90 mg/dL (75-100) 03/17/20 05:13 Hemoglobin A1c 5.6 % (4-6) 03/17/20 05:13 Osmolality 261 Mosm/kg 03/17/20 05:13 Calcium 9.1 mg/dL (8.4-10.2) 03/17/20 05:13 Total Bilirubin 0.80 mg/dL (0.1-1.2) 03/17/20 05:13 AST 41 units/L (5-40) H 03/17/20 05:13 ALT 36 units/L (7-56) 03/17/20 05:13 Alkaline Phosphatase 111 units/L (35-129) 03/17/20 05:13 Troponin T 0.052 ng/mL (0.00-0.029) H 03/16/20 15:48 NT-Pro-B Natriuret Pep 711.6 pg/mL (0-900) 03/16/20 15:48 Total Protein 6.3 g/dL (6.3-8.2) 03/17/20 05:13 Albumin 3.1 g/dL (3.9-5) L 03/17/20 05:13 Albumin/Globulin Ratio 1.0 % 03/17/20 05:13 Triglycerides 72 mg/dL (2-149) 03/16/20 15:48 Cholesterol 139 mg/dL (50-199) 03/16/20 15:48 LDL Cholesterol Direct 73 mg/dL (50-130) 03/16/20 15:48 HDL Cholesterol 69 mg/dL (40-59) H 03/16/20 15:48 Cholesterol/HDL Ratio 2.01 % 03/16/20 15:48 - Critical Actions Critical Actions: 4-6 pts:12-16.6% risk of adverse cardiac event. Should be admitted Results - Labs CBC & Chem 7: 03/17/20 05:13 03/17/20 13:37 Labs: Laboratory Last Values WBC 13.1 K/mm3 (4.5-11.0) H 03/17/20 05:13 RBC 3.99 M/mm3 (3.65-5.03) 03/17/20 05:13 Hgb 11.5 gm/dl (11.8-15.2) L 03/17/20 05:13 Hct 32.6 % (35.5-45.6) L 03/17/20 05:13 MCV 82 fl (84-94) L 03/17/20 05:13 MCH 29 pg (28-32) 03/17/20 05:13 MCHC 35 % (32-34) H 03/17/20 05:13 RDW 13.6 % (13.2-15.2) 03/17/20 05:13 Plt Count 323 K/mm3 (140-440) 03/17/20 05:13 Lymph % (Auto) 6.9 % (13.4-35.0) L 03/17/20 05:13 [place] % (Auto) 9.1 % (0.0-7.3) H 03/17/20 05:13 Eos % (Auto) 0.4 % (0.0-4.3) 03/17/20 05:13 Baso % (Auto) 0.3 % (0.0-1.8) 03/17/20 05:13 Lymph # (Auto) 0.9 K/mm3 (1.2-5.4) L 03/17/20 05:13 [place] # (Auto) 1.2 K/mm3 (0.0-0.8) H 03/17/20 05:13 Eos # (Auto) 0.1 K/mm3 (0.0-0.4) 03/17/20 05:13 Baso # (Auto) 0.0 K/mm3 (0.0-0.1) 03/17/20 05:13 Seg Neutrophils % 83.3 % (40.0-70.0) H 03/17/20 05:13 Seg Neutrophils # 10.9 K/mm3 (1.8-7.7) H 03/17/20 05:13 PT 13.5 Sec. (12.2-14.9) 03/16/20 15:48 INR 1.04 (0.87-1.13) 03/16/20 15:48 APTT 30.0 Sec. (24.2-36.6) 03/16/20 15:48 Sodium 117 mmol/L (137-145) L* 03/17/20 05:13 Potassium 3.8 mmol/L (3.6-5.0) D 03/17/20 05:13 Chloride 77.2 mmol/L (98-107) L 03/17/20 05:13 Carbon Dioxide 35 mmol/L (22-30) H 03/17/20 05:13 Anion Gap 9 mmol/L 03/17/20 05:13 BUN 34 mg/dL (9-20) H 03/17/20 05:13 Creatinine 0.9 mg/dL (0.8-1.3) 03/17/20 05:13 Estimated GFR > 60 ml/min 03/17/20 05:13 BUN/Creatinine Ratio 38 % 03/17/20 05:13 Glucose 90 mg/dL (75-100) 03/17/20 05:13 Hemoglobin A1c 5.6 % (4-6) 03/17/20 05:13 Osmolality 261 Mosm/kg 03/17/20 05:13 Calcium 9.1 mg/dL (8.4-10.2) 03/17/20 05:13 Total Bilirubin 0.80 mg/dL (0.1-1.2) 03/17/20 05:13 AST 41 units/L (5-40) H 03/17/20 05:13 ALT 36 units/L (7-56) 03/17/20 05:13 Alkaline Phosphatase 111 units/L (35-129) 03/17/20 05:13 Troponin T 0.052 ng/mL (0.00-0.029) H 03/16/20 15:48 NT-Pro-B Natriuret Pep 711.6 pg/mL (0-900) 03/16/20 15:48 Total Protein 6.3 g/dL (6.3-8.2) 03/17/20 05:13 Albumin 3.1 g/dL (3.9-5) L 03/17/20 05:13 Albumin/Globulin Ratio 1.0 % 03/17/20 05:13 Triglycerides 72 mg/dL (2-149) 03/16/20 15:48 Cholesterol 139 mg/dL (50-199) 03/16/20 15:48 LDL Cholesterol Direct 73 mg/dL (50-130) 03/16/20 15:48 HDL Cholesterol 69 mg/dL (40-59) H 03/16/20 15:48 Cholesterol/HDL Ratio 2.01 % 03/16/20 15:48 [place]/IV: Voiding Method Urinal IV Catheter Type [Right Hand] Peripheral IV Active Medications - Current Medications Current Medications: Generic Name Dose Route Start Last Admin Trade Name Freq PRN Reason Stop Dose Admin Acetaminophen 650 mg 03/17/20 00:50 Acetaminophen 325 Mg Tab PO Q4H PRN Pain MILD(1-3)/Fever >100.5/GARCIA Albuterol 2.5 mg 03/17/20 00:35 Albuterol 2.5 Mg/3 Ml Nebu IH Q4HRT PRN Shortness Of Breath Arformoterol Tartrate 15 mcg 03/17/20 00:45 03/17/20 09:03 Arformoterol 15 Mcg/2 Ml Nebu IH 15 mcg Q12HRT RUBIO Administration Aspirin 81 mg 03/17/20 22:00 Aspirin 81 Mg Tab Chew PO HS RUBIO Budesonide 0.5 mg 03/17/20 00:45 03/17/20 09:03 Budesonide 0.5 Mg/2 Ml Nebu IH 0.5 mg Q12HRT RUBIO Administration Calcium/Vitamin D 1 each 03/17/20 10:00 03/17/20 10:02 Calcium Carbonate/Vitamin D3 500 Mg-200 Unit Tab PO 1 each DAILY RUBIO Administration Cyanocobalamin 1,000 mcg 03/17/20 10:00 03/17/20 10:02 Cyanocobalamin (Vit B-12) 1000 Mcg Tab PO 1,000 mcg QDAY RUBIO Administration Famotidine 20 mg 03/17/20 10:00 03/17/20 10:02 Famotidine 20 Mg/2 Ml Inj IV 20 mg BID RUBIO Administration Furosemide 40 mg 03/17/20 06:00 03/17/20 06:14 Furosemide 40 Mg/4 Ml Inj IV 40 mg 0600,1800 RUBIO Administration Heparin Sodium (Porcine) 5,000 unit 03/17/20 10:00 03/17/20 10:02 Heparin 5,000 Unit/1 Ml Vial SUB-Q 5,000 unit Q12HR RUBIO Administration Hydromorphone HCl 0.5 mg 03/17/20 00:50 03/17/20 02:00 Hydromorphone 1 Mg/1 Ml Inj IV 0.5 mg Q3H PRN Administration Pain , Severe (7-10) Sodium Chloride 500 mls @ 42 mls/hr 03/17/20 04:49 03/17/20 06:15 Nacl 3% IV 03/17/20 16:43 42 mls/hr DIRECT ONE Administration Lorazepam 1 mg 03/17/20 10:00 03/17/20 10:02 Lorazepam 1 Mg Tab PO 1 mg DAILY RUBIO Administration Losartan Potassium 100 mg 03/17/20 10:00 03/17/20 10:02 Losartan 50 Mg Tab PO 100 mg QDAY [facility] Administration Methocarbamol 750 mg 03/17/20 00:35 Methocarbamol 750 Mg Tab PO BID PRN Muscle Spasm Metoclopramide HCl 10 mg 03/17/20 00:50 Metoclopramide 10 Mg/2 Ml Inj IV Q6H PRN Nausea And Vomiting Metolazone 5 mg 03/17/20 05:20 03/17/20 10:04 Metolazone 5 Mg Tab PO 5 mg QDAY RUBIO Administration Miscellaneous Medication 100 mcg 03/17/20 10:00 Fluticasone/Vilanterol [Breo Ellipta 100-25 Mcg Inh] IH DAILY [facility] Ondansetron HCl 4 mg 03/17/20 00:50 Ondansetron 4 Mg/2 Ml Inj IV Q8H PRN Nausea And Vomiting Potassium Chloride 40 meq 03/17/20 06:00 03/17/20 06:14 Potassium Chloride Er 20 Meq Tab PO 03/17/20 18:01 40 meq Q6H RUBIO Administration Pravastatin Sodium 80 mg 03/17/20 22:00 Pravastatin 80 Mg Tab PO QHS [facility] Sodium Chloride 10 ml 03/17/20 10:00 03/17/20 10:03 Sodium Chloride 0.9% 10 Ml Flush Syringe IV 10 ml BID RUBIO Administration Sodium Chloride 10 ml 03/17/20 00:50 Sodium Chloride 0.9% 10 Ml Flush Syringe IV PRN PRN LINE FLUSH
--- NOTE | 2020-03-17 10:58 | Consultation ---
History of Present Illness Consult date: 03/17/20 Consult reason: congestive heart failure History of present illness: This is a frail 84yr old M with chronic respiratory failure, COPD on home oxygen who presents to this hospital with shortness of breath and lower extremity redness and edema. Initial labs revealed severe hyponatremia, severe hypokalemia and leukocytosis. Chest x-ray reports chronic lung changes. An ECG is sinus rhythm with premature atrial contractions. Of note, the patient was hospitalized at this hospital a month ago with severe hyponatremia and volume overload. An echocardiogram done showed a normal left ventricular systolic function, ejection fraction 50-55%. Past History Past Medical History: COPD, hypertension, other (chronic back pain) Medications and Allergies Allergies Allergy/AdvReac Type Severity Reaction Status Date / Time Penicillins Allergy Anaphylaxis Verified 02/13/19 10:54 Home Medications Medication Instructions Recorded Confirmed Last Taken Type Calcium Carbonate/Vitamin D3 600 tab-cap PO QDAY MDD supplement 02/14/19 02/03/20 02/03/20 History [Calcium 600 with Vit D Chew Tb] Cyanocobalamin (Vitamin B-12) 1,000 mcg PO QDAY 02/14/19 02/03/20 02/03/20 History [Vitamin B12] Simvastatin 40 mg PO QHS 02/14/19 02/03/20 02/02/20 History Aspirin [Aspirin BABY CHEW TAB] 81 mg PO HS 02/03/20 02/03/20 02/03/20 History Fluticasone/Vilanterol [Breo 100 mcg IH DAILY 02/03/20 02/03/20 02/03/20 History Ellipta 100-25 Mcg INH] Furosemide [Lasix TAB] 40 mg PO BID 02/03/20 02/03/20 02/03/20 History LORazepam [Lorazepam] 1 mg PO DAILY 02/03/20 02/03/20 02/03/20 History Losartan [Cozaar] 100 mg PO QDAY 02/03/20 02/03/20 02/03/20 History Multivitamin [Multiple Vitamins] 1 each PO DAILY 02/03/20 02/03/20 02/03/20 History Potassium Chloride [K-Dur] 10 meq PO QDAY 02/03/20 02/03/20 02/02/20 History Tiotropium [place] [Spiriva 2 spray IH HS 02/03/20 02/03/20 02/02/20 History Respimat] guaiFENesin [Mucus Relief ER] 1,200 mg PO HS 02/03/20 02/03/20 Unknown History methOCARBAMOL 750 mg PO BID PRN 02/03/20 02/03/20 Unknown History ALBUTEROL NEB's [Proventil 0.083% 2.5 mg IH Q4HRT PRN #7 nebu 02/09/20 Unknown Rx NEBS] ALBUTEROL NEB's [Proventil 0.083% 5 mg IH TID PRN #20 neb 02/09/20 Unknown Rx NEBS] Acetaminophen [Acetaminophen TAB] 650 mg PO Q4H PRN tablet 02/09/20 Unknown Rx Arformoterol Nebu [Brovana Nebu] 15 mcg IH Q12HRT #1 ml 02/09/20 Unknown Rx Budesonide [Pulmicort Respules] 0.5 mg IH Q12HRT #1 nebu 02/09/20 Unknown Rx Calc Carb/Vit D 500 mg-200 Uni 1 each PO DAILY tablet 02/09/20 Unknown Rx [[place] D 500 mg-200 Unit] Cyanocobalamin [Vitamin B-12] 1,000 mcg PO QDAY tablet 02/09/20 Unknown Rx Losartan [Cozaar] 100 mg PO QDAY #30 tablet 02/09/20 Unknown Rx Multivitamin Tab [Multiple Vitamin 1 each PO DAILY #30 tablet 02/09/20 Unknown Rx TAB (Theragran)] guaiFENesin ER [Mucinex ER] 1,200 mg PO QHS tablet 02/09/20 Unknown Rx methOCARBAMOL [Robaxin TAB] 750 mg PO BID PRN tablet 02/09/20 Unknown Rx Active Meds: Active Medications Acetaminophen (Acetaminophen 325 Mg Tab) 650 mg PO Q4H PRN PRN Reason: Pain MILD(1-3)/Fever >100.5/GARCIA Albuterol (Albuterol 2.5 Mg/3 Ml Nebu) 2.5 mg IH Q4HRT PRN PRN Reason: Shortness Of Breath Arformoterol Tartrate (Arformoterol 15 Mcg/2 Ml Nebu) 15 mcg IH Q12HRT RUBIO Last Admin: 03/17/20 09:03 Dose: 15 mcg Documented by: Aspirin (Aspirin 81 Mg Tab Chew) 81 mg PO HS [facility] Budesonide (Budesonide 0.5 Mg/2 Ml Nebu) 0.5 mg IH Q12HRT [facility] Last Admin: 03/17/20 09:03 Dose: 0.5 mg Documented by: Calcium/Vitamin D (Calcium Carbonate/Vitamin D3 500 Mg-200 Unit Tab) 1 each PO DAILY [facility] Last Admin: 03/17/20 10:02 Dose: 1 each Documented by: Cyanocobalamin (Cyanocobalamin (Vit B-12) 1000 Mcg Tab) 1,000 mcg PO QDAY [facility] Last Admin: 03/17/20 10:02 Dose: 1,000 mcg Documented by: Famotidine (Famotidine 20 Mg/2 Ml Inj) 20 mg IV BID [facility] Last Admin: 03/17/20 10:02 Dose: 20 mg Documented by: Furosemide (Furosemide 40 Mg/4 Ml Inj) 40 mg IV 0600,1800 [facility] Last Admin: 03/17/20 06:14 Dose: 40 mg Documented by: Heparin Sodium (Porcine) (Heparin 5,000 Unit/1 Ml Vial) 5,000 unit SUB-Q Q12HR [facility] Last Admin: 03/17/20 10:02 Dose: 5,000 unit Documented by: Hydromorphone HCl (Hydromorphone 1 Mg/1 Ml Inj) 0.5 mg IV Q3H PRN PRN Reason: Pain , Severe (7-10) Last Admin: 03/17/20 02:00 Dose: 0.5 mg Documented by: Sodium Chloride (Nacl 3%) 500 mls @ 42 mls/hr IV DIRECT ONE Stop: 03/17/20 16:43 Last Admin: 03/17/20 06:15 Dose: 42 mls/hr Documented by: Lorazepam (Lorazepam 1 Mg Tab) 1 mg PO DAILY [facility] Last Admin: 03/17/20 10:02 Dose: 1 mg Documented by: Losartan Potassium (Losartan 50 Mg Tab) 100 mg PO QDAY [facility] Last Admin: 03/17/20 10:02 Dose: 100 mg Documented by: Methocarbamol (Methocarbamol 750 Mg Tab) 750 mg PO BID PRN PRN Reason: Muscle Spasm Metoclopramide HCl (Metoclopramide 10 Mg/2 Ml Inj) 10 mg IV Q6H PRN PRN Reason: Nausea And Vomiting Metolazone (Metolazone 5 Mg Tab) 5 mg PO QDAY [facility] Last Admin: 12/16/20 10:04 Dose: 5 mg Documented by: Miscellaneous Medication (Fluticasone/Vilanterol [Breo Ellipta 100-25 Mcg Inh]) 100 mcg IH DAILY [facility] Ondansetron HCl (Ondansetron 4 Mg/2 Ml Inj) 4 mg IV Q8H PRN PRN Reason: Nausea And Vomiting Potassium Chloride (Potassium Chloride Er 20 Meq Tab) 40 meq PO Q6H [facility] Stop: 03/17/20 18:01 Last Admin: 03/17/20 06:14 Dose: 40 meq Documented by: Pravastatin Sodium (Pravastatin 80 Mg Tab) 80 mg PO QHS [facility] Sodium Chloride (Sodium Chloride 0.9% 10 Ml Flush Syringe) 10 ml IV BID [facility] Last Admin: 03/17/20 10:03 Dose: 10 ml Documented by: Sodium Chloride (Sodium Chloride 0.9% 10 Ml Flush Syringe) 10 ml IV PRN PRN PRN Reason: LINE FLUSH Review of Systems Cardiovascular: edema, shortness of breath, no chest pain, no palpitations, no syncope Physical Examination Vital Signs Temp Pulse Resp BP Pulse Ox 97.4 F L 83 20 114/68 98 03/16/20 14:05 03/16/20 14:05 03/16/20 14:05 03/16/20 14:05 03/16/20 14:05 General appearance: no acute distress HEENT: Positive: PERRL Neck: Positive: trachea midline Cardiac: Positive: Reg Rate and Rhythm Results 03/17/20 05:13 03/17/20 05:13 Cardiac Enzymes 03/16/20 03/17/20 Range/Units 15:48 05:13 AST 54 H 41 H (5-40) units/L Coagulation 03/16/20 Range/Units 15:48 PT 13.5 (12.2-14.9) Sec. INR 1.04 (0.87-1.13) APTT 30.0 (24.2-36.6) Sec. Lipids 03/16/20 Range/Units 15:48 Triglycerides 72 (2-149) mg/dL Cholesterol 139 (50-199) mg/dL HDL Cholesterol 69 H (40-59) mg/dL Cholesterol/HDL Ratio 2.01 % CBC 03/16/20 03/17/20 Range/Units 15:48 05:13 WBC 13.6 H 13.1 H (4.5-11.0) K/mm3 RBC 4.47 3.99 (3.65-5.03) M/mm3 Hgb 12.9 11.5 L (11.8-15.2) gm/dl Hct 36.8 32.6 L (35.5-45.6) % Plt Count 364 323 (140-440) K/mm3 Lymph # (Auto) 1.2 0.9 L (1.2-5.4) K/mm3 [place] # (Auto) 1.3 H 1.2 H (0.0-0.8) K/mm3 Eos # (Auto) 0.1 0.1 (0.0-0.4) K/mm3 Baso # (Auto) 0.1 0.0 (0.0-0.1) K/mm3 Comprehensive Metabolic Panel 03/16/20 03/17/20 Range/Units 15:48 05:13 Sodium 117 L* 117 L* (137-145) mmol/L Potassium 2.5 L* 3.8 D (3.6-5.0) mmol/L Chloride 73.4 L 77.2 L (98-107) mmol/L Carbon Dioxide 30 35 H (22-30) mmol/L BUN 34 H 34 H (9-20) mg/dL Creatinine 0.8 0.9 (0.8-1.3) mg/dL Glucose 99 90 (75-100) mg/dL Calcium 9.6 9.1 (8.4-10.2) mg/dL AST 54 H 41 H (5-40) units/L ALT 43 36 (7-56) units/L Alkaline Phosphatase 127 111 (35-129) units/L Total Protein 7.4 6.3 (6.3-8.2) g/dL Albumin 3.4 L 3.1 L (3.9-5) g/dL Assessment and Plan Severe hyponatremia Severe hypokalemia LE Cellulitis Decubitus ulcer Hypertension Hx of COPD Chronic respiratory failure 02/2020 echocardiogram done showed a normal left ventricular systolic function, ejection fraction 50-55%. Recommend: Management of volume overload and hyponatremia as per Nephrology. Management of shortness of breath, COPD and chronic respiratory failure as per Pulmonary.
[2020-03-17] MEDS ORDERED: SODIUM CHLORIDE 1 GM TAB PO ONE (12:40)
[2020-03-17] MEDS ORDERED: SODIUM CHLORIDE 1 GM TAB PO SCH (22:00)
[2020-03-17] MEDS: PRAVASTATIN 80 MG TAB PO SCH (22:24)
[2020-03-17] MEDS: ASPIRIN 81 MG TAB CHEW PO SCH (22:29)
[2020-03-17] MEDS: SODIUM CHLORIDE 1 GM TAB PO SCH (22:30)
[2020-03-18 06:31] LABS: Basophils # (Auto) 0.1 K/mm3 (0.0-0.1); Basophils % (Auto) 0.6 % (0.0-1.8); Eosinophils # (Auto) 0.1 K/mm3 (0.0-0.4); Eosinophils % (Auto) 0.5 % (0.0-4.3); Hematocrit 31.3 % (35.5-45.6); Hemoglobin 10.8 gm/dl (11.8-15.2); Lymphocytes % (Auto) 8.2 % (13.4-35.0); Mean Corpuscular HGB Conc 34 % (32-34); Mean Corpuscular Volume 83 fl (84-94); Monocytes # (Auto) 1.5 K/mm3 (0.0-0.8); Monocytes % (Auto) 12.1 % (0.0-7.3); Platelet Count 318 K/mm3 (140-440); Red Blood Count 3.75 M/mm3 (3.65-5.03); Red Cell Distribution Width 13.6 % (13.2-15.2)
[2020-03-18 06:54] LABS: BUN/Creatinine Ratio 37; Blood Urea Nitrogen 37 mg/dL (9-20); Hemolysis Index 12
[2020-03-18] MEDS: FUROSEMIDE 40 MG/4 ML INJ IV SCH ×2 (06:54→17:16)
--- NOTE | 2020-03-18 07:19 | Consultation ---
History of Present Illness - Reason for Consult Consult date: 03/18/20 hyponatremia - History of Present Illness The patient is an 84 YO male with history significant for HTN, HLD, DJD, COPD, HFpEF and Chronic Respiratory Failure on Home Oxygen 3L NC who presented to [facility] ED 03/16 with c/o worsening bilateral leg swelling for the past week. Associated symptom include weeping of fluid from the leg, shortness of breath and orthopnea. Patient denies fever, chills, chest pain, palpitations, p roductive cough, skin rash, recent ill contacts or known exposure to COVID-19. Patient was treated for similar presentation last month. On admission labs significant for Sodium 117 and K 2.5. Patient was admitted for treatment of decompensated CHF and Hyponatremia. Nephrology was consulted for further evaluation. Past History Past Medical History: COPD, hypertension, other (chronic back pain) Medications and Allergies Allergies Allergy/AdvReac Type Severity Reaction Status Date / Time Penicillins Allergy Anaphylaxis Verified 02/13/19 10:54 Home Medications Medication Instructions Recorded Confirmed Last Taken Type Calcium Carbonate/Vitamin D3 600 tab-cap PO QDAY MDD supplement 02/14/19 02/03/20 02/03/20 History [Calcium 600 with Vit D Chew Tb] Cyanocobalamin (Vitamin B-12) 1,000 mcg PO QDAY 02/14/19 02/03/20 02/03/20 History [Vitamin B12] Simvastatin 40 mg PO QHS 02/14/19 02/03/20 02/02/20 History Aspirin [Aspirin BABY CHEW TAB] 81 mg PO HS 02/03/20 02/03/20 02/03/20 History Fluticasone/Vilanterol [Breo 100 mcg IH DAILY 02/03/20 02/03/20 02/03/20 History Ellipta 100-25 Mcg INH] Furosemide [Lasix TAB] 40 mg PO BID 02/03/20 02/03/20 02/03/20 History LORazepam [Lorazepam] 1 mg PO DAILY 02/03/20 02/03/20 02/03/20 History Losartan [Cozaar] 100 mg PO QDAY 02/03/20 02/03/20 02/03/20 History Multivitamin [Multiple Vitamins] 1 each PO DAILY 02/03/20 02/03/20 02/03/20 History Potassium Chloride [K-Dur] 10 meq PO QDAY 02/03/20 02/03/20 02/02/20 History Tiotropium [place] [Spiriva 2 spray IH HS 02/03/20 02/03/20 02/02/20 History Respimat] guaiFENesin [Mucus Relief ER] 1,200 mg PO HS 02/03/20 02/03/20 Unknown History methOCARBAMOL 750 mg PO BID PRN 02/03/20 02/03/20 Unknown History ALBUTEROL NEB's [Proventil 0.083% 2.5 mg IH Q4HRT PRN #7 nebu 02/09/20 Unknown Rx NEBS] ALBUTEROL NEB's [Proventil 0.083% 5 mg IH TID PRN #20 neb 02/09/20 Unknown Rx NEBS] Acetaminophen [Acetaminophen TAB] 650 mg PO Q4H PRN tablet 02/09/20 Unknown Rx Arformoterol Nebu [Brovana Nebu] 15 mcg IH Q12HRT #1 ml 02/09/20 Unknown Rx Budesonide [Pulmicort Respules] 0.5 mg IH Q12HRT #1 nebu 02/09/20 Unknown Rx Calc Carb/Vit D 500 mg-200 Uni 1 each PO DAILY tablet 02/09/20 Unknown Rx [[place] D 500 mg-200 Unit] Cyanocobalamin [Vitamin B-12] 1,000 mcg PO QDAY tablet 02/09/20 Unknown Rx Losartan [Cozaar] 100 mg PO QDAY #30 tablet 02/09/20 Unknown Rx Multivitamin Tab [Multiple Vitamin 1 each PO DAILY #30 tablet 02/09/20 Unknown Rx TAB (Theragran)] guaiFENesin ER [Mucinex ER] 1,200 mg PO QHS tablet 02/09/20 Unknown Rx methOCARBAMOL [Robaxin TAB] 750 mg PO BID PRN tablet 02/09/20 Unknown Rx Active Meds: Active Medications Acetaminophen (Acetaminophen 325 Mg Tab) 650 mg PO Q4H PRN PRN Reason: Pain MILD(1-3)/Fever >100.5/GARCIA Albuterol (Albuterol 2.5 Mg/3 Ml Nebu) 2.5 mg IH Q4HRT PRN PRN Reason: Shortness Of Breath Arformoterol Tartrate (Arformoterol 15 Mcg/2 Ml Nebu) 15 mcg IH Q12HRT [facility] Last Admin: 03/17/20 21:38 Dose: 15 mcg Documented by: Aspirin (Aspirin 81 Mg Tab Chew) 81 mg PO HS [facility] Last Admin: 03/17/20 22:29 Dose: 81 mg Documented by: Budesonide (Budesonide 0.5 Mg/2 Ml Nebu) 0.5 mg IH Q12HRT [facility] Last Admin: 03/17/20 21:39 Dose: 0.5 mg Documented by: Calcium/Vitamin D (Calcium Carbonate/Vitamin D3 500 Mg-200 Unit Tab) 1 each PO DAILY [facility] Last Admin: 03/17/20 10:02 Dose: 1 each Documented by: Cyanocobalamin (Cyanocobalamin (Vit B-12) 1000 Mcg Tab) 1,000 mcg PO QDAY [facility] Last Admin: 03/17/20 10:02 Dose: 1,000 mcg Documented by: Famotidine (Famotidine 20 Mg/2 Ml Inj) 20 mg IV BID [facility] Last Admin: 03/17/20 22:29 Dose: 20 mg Documented by: Furosemide (Furosemide 40 Mg/4 Ml Inj) 40 mg IV 0600,1800 [facility] Last Admin: 03/18/20 06:54 Dose: Not Given Documented by: Heparin Sodium (Porcine) (Heparin 5,000 Unit/1 Ml Vial) 5,000 unit SUB-Q Q12HR [facility] Last Admin: 03/17/20 22:29 Dose: 5,000 unit Documented by: Hydromorphone HCl (Hydromorphone 1 Mg/1 Ml Inj) 0.5 mg IV Q3H PRN PRN Reason: Pain , Severe (7-10) Last Admin: 03/17/20 02:00 Dose: 0.5 mg Documented by: Lorazepam (Lorazepam 1 Mg Tab) 1 mg PO DAILY [facility] Last Admin: 03/17/20 10:02 Dose: 1 mg Documented by: Losartan Potassium (Losartan 50 Mg Tab) 100 mg PO QDAY [facility] Last Admin: 03/17/20 10:02 Dose: 100 mg Documented by: Methocarbamol (Methocarbamol 750 Mg Tab) 750 mg PO BID PRN PRN Reason: Muscle Spasm Metoclopramide HCl (Metoclopramide 10 Mg/2 Ml Inj) 10 mg IV Q6H PRN PRN Reason: Nausea And Vomiting Ondansetron HCl (Ondansetron 4 Mg/2 Ml Inj) 4 mg IV Q8H PRN PRN Reason: Nausea And Vomiting Pravastatin Sodium (Pravastatin 80 Mg Tab) 80 mg PO QHS [facility] Last Admin: 03/17/20 22:24 Dose: 80 mg Documented by: Sodium Chloride (Sodium Chloride 0.9% 10 Ml Flush Syringe) 10 ml IV BID [facility] Last Admin: 03/17/20 22:29 Dose: 10 ml Documented by: Sodium Chloride (Sodium Chloride 0.9% 10 Ml Flush Syringe) 10 ml IV PRN PRN PRN Reason: LINE FLUSH Sodium Chloride (Sodium Chloride 1 Gm Tab) 1 gm PO BID [facility] Last Admin: 03/17/20 22:30 Dose: 1 gm Documented by: Review of Systems Constitutional: fatigue, no weight loss, no weight gain, no fever, no chills, no anorexia Cardiovascular: orthopnea, edema, shortness of breath, no chest pain, no syncope, no lightheadedness Respiratory: shortness of breath, dyspnea on exertion, no cough Gastrointestinal: no abdominal pain, no nausea, no vomiting, no diarrhea Genitourinary Male: no hematuria Rectal: no bleeding Neurological: no syncope Exam - Vital Signs Vital signs: Vital Signs Temp Pulse Resp BP Pulse Ox 97.4 F L 83 20 114/68 98 03/16/20 14:05 03/16/20 14:05 03/16/20 14:05 03/16/20 14:05 03/16/20 14:05 Results - Lab Results 03/19/20 05:00 03/19/20 09:45 Most recent lab results Calcium 9.0 mg/dL (8.4-10.2) 03/18/20 04:47 Phosphorus 2.90 mg/dL (2.5-4.5) 03/18/20 04:47 Magnesium 1.80 mg/dL (1.7-2.3) 03/18/20 04:47 Assessment and Plan 1. Hypervolemic Hyponatremia: 2/2 decompensated diastolic CHF and Metolazone. Fluid restriction. On IV Lasix. Sodium level is improving gradually. Monitor Sodium level. 2. FEN: Volume overload, IV Lasix. Monitor lytes and volume status. 3. CHF exacerbation: Strict I/O, monitor urine output, daily weight, afterload reduction, blood pres sure control, diuresis with Lasix. Echocardiogram showed normal EF and diastolic dysfunction. 4. Chronic hypoxic respiratory failure: Continue supplemental oxygen. 5. COPD (chronic obstructive pulmonary disease): Supplemental oxygen, nebulizer therapy. 6. Hypertension: Monitor blood pressure. Subjective: Patient was seen and examined at the bedside. Examination: General appearance: well-developed, appears stated age, no distress, NC O2 HEENT: ATNC Eyes: JOI Neck: trachea midline Respiratory: ctab Heart: regular, S1S2, no murmur Gastrointestinal: soft, normoactive bowel sounds, not tender, not distended Integumentary: LE stasis changes noted Neurologic: grossly notmal Ext: 1+ LE edema noted
[2020-03-18] MEDS: ARFORMOTEROL 15 MCG/2 ML NEBU IH SCH ×2 (08:26→19:53)
[2020-03-18] MEDS: BUDESONIDE 0.5 MG/2 ML NEBU IH SCH ×2 (08:26→19:53)
--- NOTE | 2020-03-18 09:01 | Event Note ---
Date: 03/18/20 I have called patient's Ms. Juany Venegas this morning at [phone] and discussed in detail patient's condition, tests and reports, treatment plan Consultants recommendations, and prognosis. Ms. Harrington had numerous questions, answered all of them and encouraged her to call back if she has any new questions or concerns.
--- NOTE | 2020-03-18 09:03 | Progress Note ---
Assessment and Plan Assessment and plan: --Hyponatremia Current Visit: Yes Status: Acute Plan to address problem: Severe sodium 117 at admission Improved to 124-128-132, Closely monitor electrolytes, nephrology consulted -- Acute exacerbation of CHF (congestive heart failure) Current Visit: Yes Status: Acute Plan to address problem: Follow echocardiogram Continue antifailure medications --Bilateral lower extremity edema Current Visit: Yes Status: Acute Plan to address problem: Possibly secondary to pulmonary hypertension Patient has history of severe COPD We will get echocardiogram IV Lasix in the meantime --SIRS; without organ dysfunction/present on admission Leukocytosis tachycardia --Hypokalemia/present on admission Current Visit: Yes Status: Acute . Replenished, normal level today -- Elevated troponin/NSTEMI Current Visit: Yes Status: Acute Plan to address problem: Possible troponin leak Cardiology following -- DVT prophylaxis Current Visit: Yes Status: Acute Plan to address problem: On heparin and GI prophylaxis Closely monitor the patient and adjust management as needed Plan of care reviewed with the patient and his nurse History Interval history: I have seen and examined the patient at the bedside Patient feels slightly better No new complaints, sometimes confused Vital signs noted Hospitalist Physical - Constitutional Vitals: Temp Pulse Resp BP Pulse Ox 98.1 F 82 19 109/56 98 03/18/20 07:40 03/18/20 08:26 03/18/20 08:26 03/18/20 07:40 03/18/20 08:27 General appearance: Present: no acute distress, mild distress, well-nourished - EENT Eyes: Present: PERRL, EOM intact - Neck Neck: Present: supple, normal ROM - Respiratory Respiratory effort: normal Respiratory: bilateral: diminished, negative: rales, rhonchi, wheezing - Cardiovascular Rhythm: regular Heart Sounds: Present: S1 & S2 - Extremities Extremities: no ischemia, No edema - Abdominal General gastrointestinal: soft, non-tender, non-distended, normal bowel sounds - Integumentary Integumentary: Present: clear, warm - Psychiatric Psychiatric: appropriate mood/affect, other (Confused at times) - Neurologic Neurologic: moves all extremities HEART Score - HEART Score Age: > 65 Risk factors: > 3 risk factors or hx of atherosclerotic disease Troponin: Troponin T 0.052 ng/mL (0.00-0.029) H 03/16/20 15:48 - Critical Actions Critical Actions: 4-6 pts:12-16.6% risk of adverse cardiac event. Should be admitted Results - Labs CBC & Chem 7: 03/19/20 05:00 03/19/20 05:00 Labs: Laboratory Last Values WBC 12.2 K/mm3 (4.5-11.0) H 03/18/20 04:47 RBC 3.75 M/mm3 (3.65-5.03) 03/18/20 04:47 Hgb 10.8 gm/dl (11.8-15.2) L 03/18/20 04:47 Hct 31.3 % (35.5-45.6) L 03/18/20 04:47 MCV 83 fl (84-94) L 03/18/20 04:47 MCH 29 pg (28-32) 03/18/20 04:47 MCHC 34 % (32-34) 03/18/20 04:47 RDW 13.6 % (13.2-15.2) 03/18/20 04:47 Plt Count 318 K/mm3 (140-440) 03/18/20 04:47 Lymph % (Auto) 8.2 % (13.4-35.0) L 03/18/20 04:47 [place] % (Auto) 12.1 % (0.0-7.3) H 03/18/20 04:47 Eos % (Auto) 0.5 % (0.0-4.3) 03/18/20 04:47 Baso % (Auto) 0.6 % (0.0-1.8) 03/18/20 04:47 Lymph # (Auto) 1.0 K/mm3 (1.2-5.4) L 03/18/20 04:47 [place] # (Auto) 1.5 K/mm3 (0.0-0.8) H 03/18/20 04:47 Eos # (Auto) 0.1 K/mm3 (0.0-0.4) 03/18/20 04:47 Baso # (Auto) 0.1 K/mm3 (0.0-0.1) 03/18/20 04:47 Seg Neutrophils % 78.6 % (40.0-70.0) H 03/18/20 04:47 Seg Neutrophils # 9.6 K/mm3 (1.8-7.7) H 03/18/20 04:47 PT 13.5 Sec. (12.2-14.9) 03/16/20 15:48 INR 1.04 (0.87-1.13) 03/16/20 15:48 APTT 30.0 Sec. (24.2-36.6) 03/16/20 15:48 Sodium 128 mmol/L (137-145) L 03/18/20 04:47 Potassium 3.9 mmol/L (3.6-5.0) 03/18/20 04:47 Chloride 88.7 mmol/L (98-107) L 03/18/20 04:47 Carbon Dioxide 28 mmol/L (22-30) D 03/18/20 04:47 Anion Gap 15 mmol/L 03/18/20 04:47 BUN 37 mg/dL (9-20) H 03/18/20 04:47 Creatinine 1.0 mg/dL (0.8-1.3) 03/18/20 04:47 Estimated GFR > 60 ml/min 03/18/20 04:47 BUN/Creatinine Ratio 37 % 03/18/20 04:47 Glucose 105 mg/dL (75-100) H 03/18/20 04:47 Hemoglobin A1c 5.6 % (4-6) 03/17/20 05:13 Osmolality 261 Mosm/kg 03/17/20 05:13 Calcium 9.0 mg/dL (8.4-10.2) 03/18/20 04:47 Phosphorus 2.90 mg/dL (2.5-4.5) 03/18/20 04:47 Magnesium 1.80 mg/dL (1.7-2.3) 03/18/20 04:47 Total Bilirubin 0.80 mg/dL (0.1-1.2) 03/17/20 05:13 AST 41 units/L (5-40) H 03/17/20 05:13 ALT 36 units/L (7-56) 03/17/20 05:13 Alkaline Phosphatase 111 units/L (35-129) 03/17/20 05:13 Troponin T 0.052 ng/mL (0.00-0.029) H 03/16/20 15:48 NT-Pro-B Natriuret Pep 711.6 pg/mL (0-900) 03/16/20 15:48 Total Protein 6.3 g/dL (6.3-8.2) 03/17/20 05:13 Albumin 3.1 g/dL (3.9-5) L 03/17/20 05:13 Albumin/Globulin Ratio 1.0 % 03/17/20 05:13 Triglycerides 72 mg/dL (2-149) 03/16/20 15:48 Cholesterol 139 mg/dL (50-199) 03/16/20 15:48 LDL Cholesterol Direct 73 mg/dL (50-130) 03/16/20 15:48 HDL Cholesterol 69 mg/dL (40-59) H 03/16/20 15:48 Cholesterol/HDL Ratio 2.01 % 03/16/20 15:48 Urine Osmolality 305 Mosm/kg 03/17/20 Unknown Enriquez/IV: Voiding Method Condom Catheter IV Catheter Type [Right Hand] Peripheral IV Active Medications - Current Medications Current Medications: Generic Name Dose Route Start Last Admin Trade Name Freq PRN Reason Stop Dose Admin Acetaminophen 650 mg 03/17/20 00:50 Acetaminophen 325 Mg Tab PO Q4H PRN Pain MILD(1-3)/Fever >100.5/GARCIA Albuterol 2.5 mg 03/17/20 00:35 Albuterol 2.5 Mg/3 Ml Nebu IH Q4HRT PRN Shortness Of Breath Arformoterol Tartrate 15 mcg 03/17/20 00:45 03/18/20 08:26 Arformoterol 15 Mcg/2 Ml Nebu IH 15 mcg Q12HRT RUBIO Administration Aspirin 81 mg 03/17/20 22:00 03/17/20 22:29 Aspirin 81 Mg Tab Chew PO 81 mg HS RUBIO Administration Budesonide 0.5 mg 03/17/20 00:45 03/18/20 08:26 Budesonide 0.5 Mg/2 Ml Nebu IH 0.5 mg Q12HRT [facility]BIO Administration Calcium/Vitamin D 1 each 03/17/20 10:00 03/17/20 10:02 Calcium Carbonate/Vitamin D3 500 Mg-200 Unit Tab PO 1 each DAILY [facility] Administration Cyanocobalamin 1,000 mcg 03/17/20 10:00 03/17/20 10:02 Cyanocobalamin (Vit B-12) 1000 Mcg Tab PO 1,000 mcg QDAY [facility]BIO Administration Famotidine 20 mg 03/17/20 10:00 03/17/20 22:29 Famotidine 20 Mg/2 Ml Inj IV 20 mg BID RUBIO Administration Furosemide 40 mg 03/17/20 06:00 03/18/20 06:54 Furosemide 40 Mg/4 Ml Inj IV Not Given 0600,1800 RUBIO Heparin Sodium (Porcine) 5,000 unit 03/17/20 10:00 03/17/20 22:29 Heparin 5,000 Unit/1 Ml Vial SUB-Q 5,000 unit Q12HR [facility]BIO Administration Hydromorphone HCl 0.5 mg 03/17/20 00:50 03/17/20 02:00 Hydromorphone 1 Mg/1 Ml Inj IV 0.5 mg Q3H PRN Administration Pain , Severe (7-10) Lorazepam 1 mg 03/17/20 10:00 03/17/20 10:02 Lorazepam 1 Mg Tab PO 1 mg DAILY RUBIO Administration Methocarbamol 750 mg 03/17/20 00:35 Methocarbamol 750 Mg Tab PO BID PRN Muscle Spasm Metoclopramide HCl 10 mg 03/17/20 00:50 Metoclopramide 10 Mg/2 Ml Inj IV Q6H PRN Nausea And Vomiting Ondansetron HCl 4 mg 03/17/20 00:50 Ondansetron 4 Mg/2 Ml Inj IV Q8H PRN Nausea And Vomiting Pravastatin Sodium 80 mg 03/17/20 22:00 03/17/20 22:24 Pravastatin 80 Mg Tab PO 80 mg QHS [facility]BIO Administration Sodium Chloride 10 ml 03/17/20 10:00 03/17/20 22:29 Sodium Chloride 0.9% 10 Ml Flush Syringe IV 10 ml BID RUBIO Administration Sodium Chloride 10 ml 03/17/20 00:50 Sodium Chloride 0.9% 10 Ml Flush Syringe IV PRN PRN LINE FLUSH Sodium Chloride 1 gm 03/17/20 22:00 03/17/20 22:30 Sodium Chloride 1 Gm Tab PO 1 gm BID RUBIO Administration Nutrition/Malnutrition Assess - Dietary Evaluation Nutrition/Malnutrition Findings: Nutrition Notes Start: 03/17/20 13:30 Freq: Status: Active Protocol: Document 03/17/20 13:30 CW (Rec: 03/17/20 13:41 CW [email or web address]) Co-Sign 03/17/20 13:30 MK Nutrition Notes Need for Assessment generated from: office rep Initial or Follow up Assessment Current Diagnosis COPD,Decubitus(Pressure Ulcer) ,Hypertension,Heart Failure Other Pertinent Diagnosis bilat lower edema, SOB, pulmonary edema, dyspena, SIRS , asthma Current Diet cardiac/ consistent CHO Labs/Tests Na 117 BUN 34 Pertinent Medications lasix NaCl at 42 mls/hr K-Dur at 40 meq Height 5 ft 6 in Weight 63.5 kg Usual Body Weight 63.6 kg Bowlegs Body Weight (kg) 64.54 BMI 22.6 Intake Prior to Admission Poor Weight Status Appropriate Subjective/Other Information RN screening for skin risk. Parviz score 13. Pt reports 0% PO of breakfast because he is not hungry until 2pm. Pt reports hx of eating poorly because of difficulty chewing and swallowing related to his COPD. Pt denies ONS. No observed signs of muscle or fat wasting. Burn Absent Trauma Absent GI Symptoms None Difficulty In Swallowing,Chewing Current % PO Negligible Minimum of two criteria Yes Energy Intake (severe) < or equal to 50% Estimated Energy Requirement > or equal to 5 days Fluid Accumulation Moderate to Severe (severe) Reduced Cathode Washer Strength Measurably Reduced (severe) #3 Nutrition Diagnosis Increased nutrient needs ( specify in comment below) Comments: protein Etiology wound healing As Evidenced by Signs and Symptoms scacrum pressure ulcer #2 Nutrition Diagnosis Inadequate oral intake Etiology COPD, advanced age As Evidenced by Signs and Symptoms decreased appetite and 0% PO #1 Nutrition Diagnosis Malnutrition Etiology COPD As Evidenced by Signs and Symptoms reduced hall director strength, less than 50% EER for 5 days, fluid accumilation Is patient on ventilator? No Is Patient Ambulatory and/or Out of Bed No REE-([facility]-confined to bed) 1540.416 Kcal/Kg value to use for calculation 30 Approximate Energy Requirements Using 1905 kcal/Kg Calculation Used for Recommendations Kcal/kg Additional Notes Protein needs 1.25-1.5g/kg (79 -95g/day) Fluid needs 1ml/kcal or MD order Nutrition Intervention Change Diet Order: Cardiac/Consistent CHO, mechanical soft Goal #1 Meet at least 75% of energy and protein needs via PO Goal #2 Wt gain/ stable Anticipated Discharge Needs: Unable to determine at this time Follow-Up By: 03/19/20 Additional Comments FU for intakes, wt
[2020-03-18] MEDS: LORazepam 1 MG TAB PO SCH (09:43)
[2020-03-18] MEDS: HEPARIN 5,000 UNIT/1 ML VIAL SUB-Q SCH ×2 (09:43→22:46)
[2020-03-18] MEDS: CYANOCOBALAMIN (VIT B-12) 1000 MCG TAB PO SCH (09:43)
[2020-03-18] MEDS: FAMOTIDINE 20 MG/2 ML INJ IV SCH ×2 (09:44→22:46)
[2020-03-18] MEDS: SODIUM CHLORIDE 1 GM TAB PO SCH ×2 (09:44→22:46)
[2020-03-18] MEDS: CALCIUM CARBONATE/VITAMIN D3 500 MG-200 UNIT TAB PO SCH (09:44)
--- NOTE | 2020-03-18 10:57 | Progress Note ---
Assessment and Plan Severe hyponatremia Severe hypokalemia -resolved LE Cellulitis Decubitus ulcer Hypertension Hx of COPD Chronic respiratory failure 02/2020 echocardiogram done showed a normal left ventricular systolic function, ejection fraction 50-55%. Recommend: Conservative cardiac management. Will follow intermittently. Subjective Date of service: 03/18/20 Interval history: Patient is resting in bed comfortably. No distress noted. Objective Vital Signs Temp Pulse Pulse Resp Resp BP Pulse Ox 03/18/20 08:27 98 03/18/20 08:26 82 19 03/18/20 07:40 98.1 F 93 H 109/56 93 03/18/20 04:31 97.9 F 80 18 84/51 93 03/17/20 23:07 98.3 F 103 H 18 100/32 95 03/17/20 21:51 95 03/17/20 21:40 108 H 20 03/17/20 21:39 86 03/17/20 20:02 91 H 03/17/20 19:30 98.0 F 107 H 18 103/63 88 03/17/20 15:55 97.8 F 110 H 20 114/69 83 L - Physical Examination General: No Apparent Distress HEENT: Positive: PERRL Neck: Positive: trachea midline Cardiac: Positive: Reg Rate and Rhythm Lungs: Positive: Decreased Breath Sounds - Labs and Meds CBC 03/18/20 Range/Units 04:47 WBC 12.2 H (4.5-11.0) K/mm3 RBC 3.75 (3.65-5.03) M/mm3 Hgb 10.8 L (11.8-15.2) gm/dl Hct 31.3 L (35.5-45.6) % Plt Count 318 (140-440) K/mm3 Lymph # (Auto) 1.0 L (1.2-5.4) K/mm3 [place] # (Auto) 1.5 H (0.0-0.8) K/mm3 Eos # (Auto) 0.1 (0.0-0.4) K/mm3 Baso # (Auto) 0.1 (0.0-0.1) K/mm3 Comprehensive Metabolic Panel 03/17/20 03/17/20 03/17/20 Range/Units 13:37 20:14 23:15 Sodium 124 L D 124 L 128 L (137-145) mmol/L Potassium (3.6-5.0) mmol/L Chloride (98-107) mmol/L Carbon Dioxide (22-30) mmol/L BUN (9-20) mg/dL Creatinine (0.8-1.3) mg/dL Glucose (75-100) mg/dL Calcium (8.4-10.2) mg/dL 03/18/20 Range/Units 04:47 Sodium 128 L (137-145) mmol/L Potassium 3.9 (3.6-5.0) mmol/L Chloride 88.7 L (98-107) mmol/L Carbon Dioxide 28 D (22-30) mmol/L BUN 37 H (9-20) mg/dL Creatinine 1.0 (0.8-1.3) mg/dL Glucose 105 H (75-100) mg/dL Calcium 9.0 (8.4-10.2) mg/dL
[2020-03-18] MEDS ORDERED: DIGOXIN 0.5 MG/2 ML INJ IV ONE (19:19)
[2020-03-18] MEDS: METOPROLOL TARTRATE 25 MG TAB PO SCH (20:18)
[2020-03-18] MEDS: ASPIRIN 81 MG TAB CHEW PO SCH (22:46)
[2020-03-18] MEDS: PRAVASTATIN 80 MG TAB PO SCH (22:46)
[2020-03-19 05:26] LABS: Basophils # (Auto) 0.1 K/mm3 (0.0-0.1); Basophils % (Auto) 0.7 % (0.0-1.8); Eosinophils # (Auto) 0.1 K/mm3 (0.0-0.4); Eosinophils % (Auto) 0.9 % (0.0-4.3); Hematocrit 30.3 % (35.5-45.6); Hemoglobin 10.6 gm/dl (11.8-15.2); Lymphocytes # (Auto) 1.3 K/mm3 (1.2-5.4); Lymphocytes % (Auto) 11.4 % (13.4-35.0); Mean Corpuscular HGB Conc 35 % (32-34); Mean Corpuscular Volume 85 fl (84-94); Monocytes # (Auto) 1.1 K/mm3 (0.0-0.8); Platelet Count 295 K/mm3 (140-440); Red Blood Count 3.59 M/mm3 (3.65-5.03); Red Cell Distribution Width 13.6 % (13.2-15.2)
[2020-03-19 05:59] LABS: BUN/Creatinine Ratio 35; Blood Urea Nitrogen 28 mg/dL (9-20); Hemolysis Index 29
[2020-03-19] MEDS: ACETAMINOPHEN 325 MG TAB PO PRN ×2 (06:23→06:26)
[2020-03-19] MEDS: FUROSEMIDE 40 MG/4 ML INJ IV SCH ×2 (06:24→18:03)
[2020-03-19] MEDS: ARFORMOTEROL 15 MCG/2 ML NEBU IH SCH ×2 (08:58→21:47)
[2020-03-19] MEDS: BUDESONIDE 0.5 MG/2 ML NEBU IH SCH ×2 (08:58→21:47)
[2020-03-19] MEDS: CALCIUM CARBONATE/VITAMIN D3 500 MG-200 UNIT TAB PO SCH (10:19)
[2020-03-19] MEDS: FAMOTIDINE 20 MG/2 ML INJ IV SCH (10:19)
[2020-03-19] MEDS: METOPROLOL TARTRATE 25 MG TAB PO SCH ×2 (10:19→23:01)
[2020-03-19] MEDS: CYANOCOBALAMIN (VIT B-12) 1000 MCG TAB PO SCH (10:19)
[2020-03-19] MEDS: LORazepam 1 MG TAB PO SCH (10:19)
[2020-03-19] MEDS: POTASSIUM CHLORIDE ER 20 MEQ TAB PO SCH ×2 (10:20→16:05)
[2020-03-19] MEDS: SODIUM CHLORIDE 1 GM TAB PO SCH ×2 (10:20→23:04)
[2020-03-19] MEDS: HEPARIN 5,000 UNIT/1 ML VIAL SUB-Q SCH ×2 (10:20→23:01)
--- NOTE | 2020-03-19 11:55 | Progress Note ---
Assessment and Plan Transient atrial fibrillation seen on telemetry 03/20 on metoprolol for suppression Severe hyponatremia Severe hypokalemia LE Cellulitis Decubitus ulcer Hypertension Hx of COPD Chronic respiratory failure 02/2020 echocardiogram done showed a normal left ventricular systolic function, ejection fraction 50-55%. Recommend: Replete potassium. Will check a TSH. Continue metoprolol for suppression of transient Afib. Subjective Date of service: 03/19/20 Interval history: Noted with rapid atrial fibrillation on telemetry yesterday but has since reverted back to stable sinus rhythm. Objective Vital Signs Temp Pulse Pulse Resp Resp BP Pulse Ox 03/19/20 09:11 96 03/19/20 08:58 68 20 03/19/20 07:20 78 98 03/19/20 07:19 98.3 F 78 20 120/65 66 L 03/19/20 06:19 84 100 03/19/20 03:58 97.6 F 69 6 L 122/55 42 L 03/18/20 23:54 98.7 F 67 20 88/50 100 03/18/20 20:18 146 H 126/66 03/18/20 20:17 146 H 126/66 03/18/20 19:55 66 18 03/18/20 19:54 99 03/18/20 19:45 97.6 F 48 L 20 126/66 98 03/18/20 19:40 133 H 03/18/20 16:06 97.8 F 94 H 111/72 94 - Physical Examination General: No Apparent Distress HEENT: Positive: PERRL Neck: Positive: trachea midline - Labs and Meds CBC 03/19/20 Range/Units 05:00 WBC 11.8 H (4.5-11.0) K/mm3 RBC 3.59 L (3.65-5.03) M/mm3 Hgb 10.6 L (11.8-15.2) gm/dl Hct 30.3 L (35.5-45.6) % Plt Count 295 (140-440) K/mm3 Lymph # (Auto) 1.3 (1.2-5.4) K/mm3 [place] # (Auto) 1.1 H (0.0-0.8) K/mm3 Eos # (Auto) 0.1 (0.0-0.4) K/mm3 Baso # (Auto) 0.1 (0.0-0.1) K/mm3 Comprehensive Metabolic Panel 03/18/20 03/18/20 03/19/20 Range/Units 15:46 22:38 05:00 Sodium 132 L 130 L 131 L (137-145) mmol/L Potassium 3.2 L (3.6-5.0) mmol/L Chloride 88.5 L (98-107) mmol/L Carbon Dioxide 33 H (22-30) mmol/L BUN 28 H (9-20) mg/dL Creatinine 0.8 (0.8-1.3) mg/dL Glucose 91 (75-100) mg/dL Calcium 9.0 (8.4-10.2) mg/dL 03/19/20 Range/Units 09:45 Sodium 133 L (137-145) mmol/L Potassium (3.6-5.0) mmol/L Chloride (98-107) mmol/L Carbon Dioxide (22-30) mmol/L BUN (9-20) mg/dL Creatinine (0.8-1.3) mg/dL Glucose (75-100) mg/dL Calcium (8.4-10.2) mg/dL - Imaging and Cardiology EKG: report reviewed (Sinus rhythm no acute ST-T wave changes)
[2020-03-19 14:05] LABS: Free T4 (Free Thyroxine) 1.44 ng/dL (0.76-1.46)
--- NOTE | 2020-03-19 15:28 | Progress Note ---
Assessment and Plan 1. Hypervolemic Hyponatremia: 2/2 decompensated diastolic CHF and Metolazone. Fluid restriction. On IV Lasix. Sodium level is improving gradually. Monitor Sodium level. 2. FEN: Volume overload, IV Lasix. Metabolic alkalosis, monitor. Replete K. Monitor lytes and volume status. 3. CHF exacerbation: Strict I/O, monitor urine output, daily weight, afterload reduction, blood pressure control, diuresis with Lasix. Echocardiogram showed normal EF and diastolic dysfunction. 4. Chronic hypoxic respiratory failure: Continue supplemental oxygen. 5. COPD (chronic obstructive pulmonary disease): Supplemental oxygen, nebulizer therapy. 6. Hypertension: Monitor blood pressure. Subjective: Patient was seen and examined at the bedside. Examination: General appearance: well-developed, appears stated age, no distress, NC O2 HEENT: ATNC Eyes: JOI Neck: trachea midline Respiratory: ctab Heart: regular, S1S2, no murmur Gastrointestinal: soft, normoactive bowel sounds, not tender, not distended Integumentary: LE stasis changes noted Neurologic: grossly normal Ext: no edema noted Subjective Date of service: 03/19/20 Objective - Vital Signs Vital signs: Vital Signs - 12hr 03/19/20 03/19/20 03/19/20 03:58 06:19 07:19 Temperature 97.6 F 98.3 F Pulse Rate 69 84 78 Pulse Rate [ Bilateral Throughout] Respiratory 6 L 20 Rate Respiratory Rate [Bilateral Throughout] Blood Pressure 122/55 120/65 O2 Sat by Pulse 42 L 100 66 L Oximetry 03/19/20 03/19/20 03/19/20 07:20 08:58 09:11 Temperature Pulse Rate 78 Pulse Rate [ 68 Bilateral Throughout] Respiratory Rate Respiratory 20 Rate [Bilateral Throughout] Blood Pressure O2 Sat by Pulse 98 96 Oximetry 03/19/20 03/19/20 10:00 12:11 Temperature 98.1 F Pulse Rate 72 Pulse Rate [ Bilateral Throughout] Respiratory 18 18 Rate Respiratory Rate [Bilateral Throughout] Blood Pressure 104/50 O2 Sat by Pulse 98 Oximetry - Lab 03/19/20 05:00 03/19/20 09:45 Most recent lab results Calcium 9.0 mg/dL (8.4-10.2) 03/19/20 05:00 Phosphorus 2.90 mg/dL (2.5-4.5) 03/18/20 04:47 Magnesium 1.80 mg/dL (1.7-2.3) 03/18/20 04:47 Medications & Allergies - Medications Allergies/Adverse Reactions: Allergies Penicillins Allergy (Verified 02/13/19 10:54) Anaphylaxis Home Medications: Home Medications Medication Instructions Recorded Confirmed Last Taken Type Calcium Carbonate/Vitamin D3 600 tab-cap PO QDAY MDD supplement 02/14/19 02/03/20 02/03/20 History [Calcium 600 with Vit D Chew Tb] Cyanocobalamin (Vitamin B-12) 1,000 mcg PO QDAY 02/14/19 02/03/20 02/03/20 History [Vitamin B12] Simvastatin 40 mg PO QHS 02/14/19 02/03/20 02/02/20 History Aspirin [Aspirin BABY CHEW TAB] 81 mg PO HS 02/03/20 02/03/20 02/03/20 History Fluticasone/Vilanterol [Breo 100 mcg IH DAILY 02/03/20 02/03/20 02/03/20 History Ellipta 100-25 Mcg INH] Furosemide [Lasix TAB] 40 mg PO BID 02/03/20 02/03/20 02/03/20 History LORazepam [Lorazepam] 1 mg PO DAILY 02/03/20 02/03/20 02/03/20 History Losartan [Cozaar] 100 mg PO QDAY 02/03/20 02/03/20 02/03/20 History Multivitamin [Multiple Vitamins] 1 each PO DAILY 02/03/20 02/03/20 02/03/20 History Potassium Chloride [K-Dur] 10 meq PO QDAY 02/03/20 02/03/20 02/02/20 History Tiotropium [place] [Spiriva 2 spray IH HS 02/03/20 02/03/20 02/02/20 History Respimat] guaiFENesin [Mucus Relief ER] 1,200 mg PO HS 02/03/20 02/03/20 Unknown History methOCARBAMOL 750 mg PO BID PRN 02/03/20 02/03/20 Unknown History ALBUTEROL NEB's [Proventil 0.083% 2.5 mg IH Q4HRT PRN #7 nebu 02/09/20 Unknown Rx NEBS] ALBUTEROL NEB's [Proventil 0.083% 5 mg IH TID PRN #20 neb 02/09/20 Unknown Rx NEBS] Acetaminophen [Acetaminophen TAB] 650 mg PO Q4H PRN tablet 02/09/20 Unknown Rx Arformoterol Nebu [Brovana Nebu] 15 mcg IH Q12HRT #1 ml 02/09/20 Unknown Rx Budesonide [Pulmicort Respules] 0.5 mg IH Q12HRT #1 nebu 02/09/20 Unknown Rx Calc Carb/Vit D 500 mg-200 Uni 1 each PO DAILY tablet 02/09/20 Unknown Rx [[place] D 500 mg-200 Unit] Cyanocobalamin [Vitamin B-12] 1,000 mcg PO QDAY tablet 02/09/20 Unknown Rx Losartan [Cozaar] 100 mg PO QDAY #30 tablet 02/09/20 Unknown Rx Multivitamin Tab [Multiple Vitamin 1 each PO DAILY #30 tablet 02/09/20 Unknown Rx TAB (Theragran)] guaiFENesin ER [Mucinex ER] 1,200 mg PO QHS tablet 02/09/20 Unknown Rx methOCARBAMOL [Robaxin TAB] 750 mg PO BID PRN tablet 02/09/20 Unknown Rx Active Medications: Generic Name Dose Route Start Last Admin Trade Name Freq PRN Reason Stop Dose Admin Acetaminophen 650 mg 03/17/20 00:50 03/19/20 06:26 Acetaminophen 325 Mg Tab PO 325 mg Q4H PRN Administration Pain MILD(1-3)/Fever >100.5/GARCIA Albuterol 2.5 mg 03/17/20 00:35 Albuterol 2.5 Mg/3 Ml Nebu IH Q4HRT PRN Shortness Of Breath Arformoterol Tartrate 15 mcg 03/17/20 00:45 03/19/20 08:58 Arformoterol 15 Mcg/2 Ml Nebu IH 15 mcg Q12HRT RUBIO Administration Aspirin 81 mg 03/17/20 22:00 03/18/20 22:46 Aspirin 81 Mg Tab Chew PO 81 mg HS RUBIO Administration Budesonide 0.5 mg 03/17/20 00:45 03/19/20 08:58 Budesonide 0.5 Mg/2 Ml Nebu IH 0.5 mg Q12HRT RUBIO Administration Calcium/Vitamin D 1 each 03/17/20 10:00 03/19/20 10:19 Calcium Carbonate/Vitamin D3 500 Mg-200 Unit Tab PO 1 each DAILY RUBIO Administration Cyanocobalamin 1,000 mcg 03/17/20 10:00 03/19/20 10:19 Cyanocobalamin (Vit B-12) 1000 Mcg Tab PO 1,000 mcg QDAY RUBIO Administration Famotidine 20 mg 03/19/20 22:00 Famotidine 20 Mg Tab PO BID RUBIO Furosemide 40 mg 03/17/20 06:00 03/19/20 06:24 Furosemide 40 Mg/4 Ml Inj IV 40 mg 0600,1800 RUBIO Administration Heparin Sodium (Porcine) 5,000 unit 03/17/20 10:00 03/19/20 10:20 Heparin 5,000 Unit/1 Ml Vial SUB-Q 5,000 unit Q12HR RUBIO Administration Hydromorphone HCl 0.5 mg 03/17/20 00:50 03/17/20 02:00 Hydromorphone 1 Mg/1 Ml Inj IV 0.5 mg Q3H PRN Administration Pain , Severe (7-10) Lorazepam 1 mg 03/17/20 10:00 03/19/20 10:19 Lorazepam 1 Mg Tab PO 1 mg DAILY RUBIO Administration Methocarbamol 750 mg 03/17/20 00:35 Methocarbamol 750 Mg Tab PO BID PRN Muscle Spasm Metoclopramide HCl 10 mg 03/17/20 00:50 Metoclopramide 10 Mg/2 Ml Inj IV Q6H PRN Nausea And Vomiting Metoprolol Tartrate 25 mg 03/18/20 19:21 03/19/20 10:19 Metoprolol Tartrate 25 Mg Tab PO 25 mg BID RUBIO Administration Ondansetron HCl 4 mg 03/17/20 00:50 Ondansetron 4 Mg/2 Ml Inj IV Q8H PRN Nausea And Vomiting Pravastatin Sodium 80 mg 03/17/20 22:00 03/18/20 22:46 Pravastatin 80 Mg Tab PO 80 mg QHS RUBIO Administration Sodium Chloride 10 ml 03/17/20 10:00 03/19/20 10:20 Sodium Chloride 0.9% 10 Ml Flush Syringe IV 10 ml BID RUBIO Administration Sodium Chloride 10 ml 03/17/20 00:50 03/18/20 20:20 Sodium Chloride 0.9% 10 Ml Flush Syringe IV 10 ml PRN PRN Administration LINE FLUSH Sodium Chloride 1 gm 03/17/20 22:00 03/19/20 10:20 Sodium Chloride 1 Gm Tab PO 1 gm BID RUBIO Administration
--- NOTE | 2020-03-19 20:41 | Progress Note ---
Assessment and Plan Assessment and plan: --Hypomagnesemia; replenish with IV magnesium sulfate I will follow electrolytes --Hyponatremia resolved Current Visit: Yes Status: Acute Plan to address problem: Severe sodium 117 at admission Improved to [phone] Closely monitor electrolytes, nephrology consulted -- Acute exacerbation of CHF (congestive heart failure) Current Visit: Yes Status: Acute Plan to address problem: Follow echocardiogram Continue antifailure medications --Transient atrial fibrillation with RVR; Continue metoprolol Cardiology following Defer anticoagulation to cardiology --Bilateral lower extremity edema Current Visit: Yes Status: Acute Plan to address problem: Possibly secondary to pulmonary hypertension. Patient has history of severe COPD We will get echocardiogram IV Lasix in the meantime --SIRS; without organ dysfunction/present on admission Leukocytosis tachycardia --Hypokalemia/present on admission/resolved Current Visit: Yes Status: Acute . Replenished, closely monitor electrolytes -- Elevated troponin/NSTEMI Current Visit: Yes Status: Acute Plan to address problem: Possible troponin leak Cardiology following -- DVT prophylaxis Current Visit: Yes Status: Acute Plan to address problem: On heparin and GI prophylaxis Closely monitor the patient and adjust the management as needed History Interval history: I have seen and examined the patient Patient's chart and medications reviewed Patient feels better Significant improvement of lower extremity edema Sodium levels gradually improving Patient is alert and awake responding appropriately Wants to go home Vital signs reviewed Hospitalist Physical - Constitutional Vitals: Temp Pulse Resp BP Pulse Ox 98.2 F 92 H 20 141/71 96 03/19/20 15:23 03/19/20 15:23 03/19/20 15:23 03/19/20 15:23 03/19/20 15:23 General appearance: Present: no acute distress, mild distress, well-nourished - EENT Eyes: Present: PERRL, EOM intact - Neck Neck: Present: supple, normal ROM - Respiratory Respiratory effort: normal Respiratory: bilateral: diminished, rales, negative: rhonchi, wheezing - Cardiovascular Rhythm: regular Heart Sounds: Present: S1 & S2 - Extremities Extremities: no ischemia, No edema - Abdominal General gastrointestinal: soft, non-tender, non-distended, normal bowel sounds - Integumentary Integumentary: Present: clear, warm - Psychiatric Psychiatric: appropriate mood/affect, cooperative - Neurologic Neurologic: moves all extremities HEART Score - HEART Score Age: > 65 Risk factors: > 3 risk factors or hx of atherosclerotic disease Troponin: Troponin T 0.052 ng/mL (0.00-0.029) H 03/16/20 15:48 - Critical Actions Critical Actions: 4-6 pts:12-16.6% risk of adverse cardiac event. Should be admitted Results - Labs CBC & Chem 7: 03/19/20 05:00 03/20/20 04:00 Labs: Laboratory Last Values WBC 11.8 K/mm3 (4.5-11.0) H 03/19/20 05:00 RBC 3.59 M/mm3 (3.65-5.03) L 03/19/20 05:00 Hgb 10.6 gm/dl (11.8-15.2) L 03/19/20 05:00 Hct 30.3 % (35.5-45.6) L 03/19/20 05:00 MCV 85 fl (84-94) 03/19/20 05:00 MCH 30 pg (28-32) 03/19/20 05:00 MCHC 35 % (32-34) H 03/19/20 05:00 RDW 13.6 % (13.2-15.2) 03/19/20 05:00 Plt Count 295 K/mm3 (140-440) 03/19/20 05:00 Lymph % (Auto) 11.4 % (13.4-35.0) L 03/19/20 05:00 Lucas % (Auto) 9.0 % (0.0-7.3) H 03/19/20 05:00 Eos % (Auto) 0.9 % (0.0-4.3) 03/19/20 05:00 Baso % (Auto) 0.7 % (0.0-1.8) 03/19/20 05:00 Lymph # (Auto) 1.3 K/mm3 (1.2-5.4) 03/19/20 05:00 Lucas # (Auto) 1.1 K/mm3 (0.0-0.8) H 03/19/20 05:00 Eos # (Auto) 0.1 K/mm3 (0.0-0.4) 03/19/20 05:00 Baso # (Auto) 0.1 K/mm3 (0.0-0.1) 03/19/20 05:00 Seg Neutrophils % 78.0 % (40.0-70.0) H 03/19/20 05:00 Seg Neutrophils # 9.2 K/mm3 (1.8-7.7) H 03/19/20 05:00 PT 13.5 Sec. (12.2-14.9) 03/16/20 15:48 INR 1.04 (0.87-1.13) 03/16/20 15:48 APTT 30.0 Sec. (24.2-36.6) 03/16/20 15:48 Sodium 133 mmol/L (137-145) L 03/19/20 09:45 Potassium 3.2 mmol/L (3.6-5.0) L 03/19/20 05:00 Chloride 88.5 mmol/L (98-107) L 03/19/20 05:00 Carbon Dioxide 33 mmol/L (22-30) H 03/19/20 05:00 Anion Gap 13 mmol/L 03/19/20 05:00 BUN 28 mg/dL (9-20) H 03/19/20 05:00 Creatinine 0.8 mg/dL (0.8-1.3) 03/19/20 05:00 Estimated GFR > 60 ml/min 03/19/20 05:00 BUN/Creatinine Ratio 35 % 03/19/20 05:00 Glucose 91 mg/dL (75-100) 03/19/20 05:00 Hemoglobin A1c 5.6 % (4-6) 03/17/20 05:13 Osmolality 261 Mosm/kg 03/17/20 05:13 Calcium 9.0 mg/dL (8.4-10.2) 03/19/20 05:00 Phosphorus 2.90 mg/dL (2.5-4.5) 03/18/20 04:47 Magnesium 1.80 mg/dL (1.7-2.3) 03/18/20 04:47 Total Bilirubin 0.80 mg/dL (0.1-1.2) 03/17/20 05:13 AST 41 units/L (5-40) H 03/17/20 05:13 ALT 36 units/L (7-56) 03/17/20 05:13 Alkaline Phosphatase 111 units/L (35-129) 03/17/20 05:13 Troponin T 0.052 ng/mL (0.00-0.029) H 03/16/20 15:48 NT-Pro-B Natriuret Pep 711.6 pg/mL (0-900) 03/16/20 15:48 Total Protein 6.3 g/dL (6.3-8.2) 03/17/20 05:13 Albumin 3.1 g/dL (3.9-5) L 03/17/20 05:13 Albumin/Globulin Ratio 1.0 % 03/17/20 05:13 Triglycerides 72 mg/dL (2-149) 03/16/20 15:48 Cholesterol 139 mg/dL (50-199) 03/16/20 15:48 LDL Cholesterol Direct 73 mg/dL (50-130) 03/16/20 15:48 HDL Cholesterol 69 mg/dL (40-59) H 03/16/20 15:48 Cholesterol/HDL Ratio 2.01 % 03/16/20 15:48 TSH 0.834 mlU/mL (0.270-4.200) 03/19/20 12:44 Free T4 1.44 ng/dL (0.76-1.46) 03/19/20 12:44 Urine Osmolality 305 Mosm/kg 03/17/20 Unknown Nasal Screen MRSA (PCR) Negative (Negative) 03/17/20 03:43 Enriquez/IV: Voiding Method Condom Catheter IV Catheter Type [Left Forearm INT / Saline Lock ] IV Catheter Type [Right Hand] Peripheral IV Active Medications - Current Medications Current Medications: Generic Name Dose Route Start Last Admin Trade Name Marcoq PRN Reason Stop Dose Admin Acetaminophen 650 mg 03/17/20 00:50 03/19/20 06:26 Acetaminophen 325 Mg Tab PO 325 mg Q4H PRN Administration Pain MILD(1-3)/Fever >100.5/GARCIA Albuterol 2.5 mg 03/17/20 00:35 Albuterol 2.5 Mg/3 Ml Nebu IH Q4HRT PRN Shortness Of Breath Arformoterol Tartrate 15 mcg 03/17/20 00:45 03/19/20 08:58 Arformoterol 15 Mcg/2 Ml Nebu IH 15 mcg Q12HRT RUBIO Administration Aspirin 81 mg 03/17/20 22:00 03/18/20 22:46 Aspirin 81 Mg Tab Chew PO 81 mg HS RUBIO Administration Budesonide 0.5 mg 03/17/20 00:45 03/19/20 08:58 Budesonide 0.5 Mg/2 Ml Nebu IH 0.5 mg Q12HRT RUBIO Administration Calcium/Vitamin D 1 each 03/17/20 10:00 03/19/20 10:19 Calcium Carbonate/Vitamin D3 500 Mg-200 Unit Tab PO 1 each DAILY RUBIO Administration Cyanocobalamin 1,000 mcg 03/17/20 10:00 03/19/20 10:19 Cyanocobalamin (Vit B-12) 1000 Mcg Tab PO 1,000 mcg QDAY RUBIO Administration Famotidine 20 mg 03/19/20 22:00 Famotidine 20 Mg Tab PO BID RUBIO Furosemide 40 mg 03/17/20 06:00 03/19/20 18:03 Furosemide 40 Mg/4 Ml Inj IV 40 mg 0600,1800 RUBIO Administration Heparin Sodium (Porcine) 5,000 unit 03/17/20 10:00 03/19/20 10:20 Heparin 5,000 Unit/1 Ml Vial SUB-Q 5,000 unit Q12HR RUBIO Administration Hydromorphone HCl 0.5 mg 03/17/20 00:50 03/17/20 02:00 Hydromorphone 1 Mg/1 Ml Inj IV 0.5 mg Q3H PRN Administration Pain , Severe (7-10) Lorazepam 1 mg 03/17/20 10:00 03/19/20 10:19 Lorazepam 1 Mg Tab PO 1 mg DAILY RUBIO Administration Methocarbamol 750 mg 03/17/20 00:35 Methocarbamol 750 Mg Tab PO BID PRN Muscle Spasm Metoclopramide HCl 10 mg 03/17/20 00:50 Metoclopramide 10 Mg/2 Ml Inj IV Q6H PRN Nausea And Vomiting Metoprolol Tartrate 25 mg 03/18/20 19:21 03/19/20 10:19 Metoprolol Tartrate 25 Mg Tab PO 25 mg BID RUBIO Administration Ondansetron HCl 4 mg 03/17/20 00:50 Ondansetron 4 Mg/2 Ml Inj IV Q8H PRN Nausea And Vomiting Pravastatin Sodium 80 mg 03/17/20 22:00 03/18/20 22:46 Pravastatin 80 Mg Tab PO 80 mg QHS RUBIO Administration Sodium Chloride 10 ml 03/17/20 10:00 03/19/20 10:20 Sodium Chloride 0.9% 10 Ml Flush Syringe IV 10 ml BID RUBIO Administration Sodium Chloride 10 ml 03/17/20 00:50 03/18/20 20:20 Sodium Chloride 0.9% 10 Ml Flush Syringe IV 10 ml PRN PRN Administration LINE FLUSH Sodium Chloride 1 gm 03/17/20 22:00 03/19/20 10:20 Sodium Chloride 1 Gm Tab PO 1 gm BID RUBIO Administration Nutrition/Malnutrition Assess - Dietary Evaluation Nutrition/Malnutrition Findings: Nutrition Notes Start: 03/17/20 13:30 Freq: Status: Active Protocol: Document 03/19/20 11:09 EN (Rec: 03/19/20 11:15 EN [id number]) Co-Sign 03/19/20 11:09 MK Nutrition Notes Initial or Follow up Reassessment Current Diagnosis COPD,Decubitus(Pressure Ulcer) ,Hypertension,Heart Failure Other Pertinent Diagnosis bilat lower edema, SOB, pulmonary edema, dyspena, SIRS , asthma Current Diet cardiac/ consistent CHO with mechanical soft Labs/Tests Na 131 K+ 3.2 BUN 28 Pertinent Medications Lasix K-Dur at 40 meq Vitamin B-12 Height 5 ft 6 in Weight 63.5 kg [place] Body Weight (kg) 64.54 BMI 22.6 Weight Status Appropriate Subjective/Other Information F/u for intakes and weight. Pt 's wt stable. Pt consuming 50% of meals with a good appetite . Pt does not like the food but does not have any preferences to note. Pt denies N/V/D. Percent of energy/protein needs met: 52%/55% Burn Absent Trauma Absent GI Symptoms None Difficulty In Swallowing,Chewing Current % PO Fair (50-74%) Minimum of two criteria Yes Energy Intake (severe) < or equal to 50% Estimated Energy Requirement > or equal to 5 days Fluid Accumulation Moderate to Severe (severe) Reduced Director Distribution Strength Measurably Reduced (severe) #3 Nutrition Diagnosis Increased nutrient needs ( specify in comment below) Diagnosis Progress(for reassessment Continues documentation) #2 Nutrition Diagnosis Inadequate oral intake As Evidenced by Signs and Symptoms Pt consuming 50% of meals Diagnosis Progress(for reassessment Improved documentation) #1 Nutrition Diagnosis Malnutrition Diagnosis Progress(for reassessment Continues documentation) Is patient on ventilator? No Is Patient Ambulatory and/or Out of Bed No REE-([place]-confined to bed) 1540.416 Kcal/Kg value to use for calculation 30 Approximate Energy Requirements Using 1905 kcal/Kg Calculation Used for Recommendations Kcal/kg Additional Notes Protein needs 1.25-1.5g/kg (79 -95g/day) Fluid needs 1ml/kcal or MD order Nutrition Intervention Change Diet Order: Continue current diet Goal #1 Meet at least 75% of energy and protein needs via PO Goal #2 Wt gain/maintenance Anticipated Discharge Needs: Cardiac/Consistent CHO with mechanical soft modification Follow-Up By: 03/23/20 Additional Comments F/u for intakes
[2020-03-19] MEDS: PRAVASTATIN 80 MG TAB PO SCH (23:00)
[2020-03-19] MEDS: ASPIRIN 81 MG TAB CHEW PO SCH (23:00)
[2020-03-19] MEDS: FAMOTIDINE 20 MG TAB PO SCH (23:01)
[2020-03-20 05:39] LABS: BUN/Creatinine Ratio 33; Blood Urea Nitrogen 26 mg/dL (9-20); Calcium 9.1 mg/dL (8.4-10.2); Hemolysis Index 0
[2020-03-20] MEDS: FUROSEMIDE 40 MG/4 ML INJ IV SCH (06:34)
[2020-03-20] MEDS: BUDESONIDE 0.5 MG/2 ML NEBU IH SCH ×2 (07:58→21:06)
[2020-03-20] MEDS: ARFORMOTEROL 15 MCG/2 ML NEBU IH SCH ×2 (07:59→21:06)
[2020-03-20] MEDS: CYANOCOBALAMIN (VIT B-12) 1000 MCG TAB PO SCH (10:12)
[2020-03-20] MEDS: METOPROLOL TARTRATE 25 MG TAB PO SCH ×3 (10:12→23:20)
[2020-03-20] MEDS: LORazepam 1 MG TAB PO SCH (10:12)
[2020-03-20] MEDS: CALCIUM CARBONATE/VITAMIN D3 500 MG-200 UNIT TAB PO SCH (10:12)
[2020-03-20] MEDS: FAMOTIDINE 20 MG TAB PO SCH ×2 (10:12→23:19)
[2020-03-20] MEDS: HEPARIN 5,000 UNIT/1 ML VIAL SUB-Q SCH (10:13)
[2020-03-20] MEDS: SODIUM CHLORIDE 1 GM TAB PO SCH ×2 (10:28→23:18)
[2020-03-20] MEDS ORDERED: MAGNESIUM SULFATE 4 GM/100 ML BAG IV ONE (11:38)
--- NOTE | 2020-03-20 11:40 | Progress Note ---
Hospitalist Physical - Constitutional Vitals: Temp Pulse Resp BP Pulse Ox 97.8 F 147 H 18 137/76 97 03/20/20 04:58 03/20/20 10:12 03/20/20 07:58 03/20/20 04:58 03/20/20 07:58 General appearance: Present: no acute distress, mild distress, well-nourished HEART Score - HEART Score Age: > 65 Risk factors: > 3 risk factors or hx of atherosclerotic disease Troponin: Troponin T 0.052 ng/mL (0.00-0.029) H 03/16/20 15:48 - Critical Actions Critical Actions: 4-6 pts:12-16.6% risk of adverse cardiac event. Should be admitted Results - Labs CBC & Chem 7: 03/19/20 05:00 03/20/20 04:00 Labs: Laboratory Last Values WBC 11.8 K/mm3 (4.5-11.0) H 03/19/20 05:00 RBC 3.59 M/mm3 (3.65-5.03) L 03/19/20 05:00 Hgb 10.6 gm/dl (11.8-15.2) L 03/19/20 05:00 Hct 30.3 % (35.5-45.6) L 03/19/20 05:00 MCV 85 fl (84-94) 03/19/20 05:00 MCH 30 pg (28-32) 03/19/20 05:00 MCHC 35 % (32-34) H 03/19/20 05:00 RDW 13.6 % (13.2-15.2) 03/19/20 05:00 Plt Count 295 K/mm3 (140-440) 03/19/20 05:00 Lymph % (Auto) 11.4 % (13.4-35.0) L 03/19/20 05:00 [place] % (Auto) 9.0 % (0.0-7.3) H 03/19/20 05:00 Eos % (Auto) 0.9 % (0.0-4.3) 03/19/20 05:00 Baso % (Auto) 0.7 % (0.0-1.8) 03/19/20 05:00 Lymph # (Auto) 1.3 K/mm3 (1.2-5.4) 03/19/20 05:00 [place] # (Auto) 1.1 K/mm3 (0.0-0.8) H 03/19/20 05:00 Eos # (Auto) 0.1 K/mm3 (0.0-0.4) 03/19/20 05:00 Baso # (Auto) 0.1 K/mm3 (0.0-0.1) 03/19/20 05:00 Seg Neutrophils % 78.0 % (40.0-70.0) H 03/19/20 05:00 Seg Neutrophils # 9.2 K/mm3 (1.8-7.7) H 03/19/20 05:00 PT 13.5 Sec. (12.2-14.9) 03/16/20 15:48 INR 1.04 (0.87-1.13) 03/16/20 15:48 APTT 30.0 Sec. (24.2-36.6) 03/16/20 15:48 Sodium 137 mmol/L (137-145) 03/20/20 04:00 Potassium 3.7 mmol/L (3.6-5.0) 03/20/20 04:00 Chloride 92.6 mmol/L (98-107) L 03/20/20 04:00 Carbon Dioxide 34 mmol/L (22-30) H 03/20/20 04:00 Anion Gap 14 mmol/L 03/20/20 04:00 BUN 26 mg/dL (9-20) H 03/20/20 04:00 Creatinine 0.8 mg/dL (0.8-1.3) 03/20/20 04:00 Estimated GFR > 60 ml/min 03/20/20 04:00 BUN/Creatinine Ratio 33 % 03/20/20 04:00 Glucose 96 mg/dL (75-100) 03/20/20 04:00 Hemoglobin A1c 5.6 % (4-6) 03/17/20 05:13 Osmolality 261 Mosm/kg 03/17/20 05:13 Calcium 9.1 mg/dL (8.4-10.2) 03/20/20 04:00 Phosphorus 2.90 mg/dL (2.5-4.5) 03/18/20 04:47 Magnesium 1.20 mg/dL (1.7-2.3) L 03/20/20 04:00 Total Bilirubin 0.80 mg/dL (0.1-1.2) 03/17/20 05:13 AST 41 units/L (5-40) H 03/17/20 05:13 ALT 36 units/L (7-56) 03/17/20 05:13 Alkaline Phosphatase 111 units/L (35-129) 03/17/20 05:13 Troponin T 0.052 ng/mL (0.00-0.029) H 03/16/20 15:48 NT-Pro-B Natriuret Pep 711.6 pg/mL (0-900) 03/16/20 15:48 Total Protein 6.3 g/dL (6.3-8.2) 03/17/20 05:13 Albumin 3.1 g/dL (3.9-5) L 03/17/20 05:13 Albumin/Globulin Ratio 1.0 % 03/17/20 05:13 Triglycerides 72 mg/dL (2-149) 03/16/20 15:48 Cholesterol 139 mg/dL (50-199) 03/16/20 15:48 LDL Cholesterol Direct 73 mg/dL (50-130) 03/16/20 15:48 HDL Cholesterol 69 mg/dL (40-59) H 03/16/20 15:48 Cholesterol/HDL Ratio 2.01 % 03/16/20 15:48 TSH 0.834 mlU/mL (0.270-4.200) 03/19/20 12:44 Free T4 1.44 ng/dL (0.76-1.46) 03/19/20 12:44 Urine Osmolality 305 Mosm/kg 03/17/20 Unknown Nasal Screen MRSA (PCR) Negative (Negative) 03/17/20 03:43 Enriquez/IV: Voiding Method Condom Catheter IV Catheter Type [Left Forearm INT / Saline Lock ] IV Catheter Type [Right Hand] Peripheral IV Active Medications - Current Medications Current Medications: Generic Name Dose Route Start Last Admin Trade Name Freq PRN Reason Stop Dose Admin Acetaminophen 650 mg 03/17/20 00:50 03/19/20 06:26 Acetaminophen 325 Mg Tab PO 325 mg Q4H PRN Administration Pain MILD(1-3)/Fever >100.5/GARCIA Albuterol 2.5 mg 12/16/20 00:35 Albuterol 2.5 Mg/3 Ml Nebu IH Q4HRT PRN Shortness Of Breath Arformoterol Tartrate 15 mcg 03/17/20 00:45 03/20/20 07:59 Arformoterol 15 Mcg/2 Ml Nebu IH 15 mcg Q12HRT RUBIO Administration Aspirin 81 mg 03/17/20 22:00 03/19/20 23:00 Aspirin 81 Mg Tab Chew PO 81 mg HS RUBIO Administration Budesonide 0.5 mg 03/17/20 00:45 03/20/20 07:58 Budesonide 0.5 Mg/2 Ml Nebu IH 0.5 mg Q12HRT RUBIO Administration Calcium/Vitamin D 1 each 03/17/20 10:00 03/20/20 10:12 Calcium Carbonate/Vitamin D3 500 Mg-200 Unit Tab PO 1 each DAILY RUBIO Administration Cyanocobalamin 1,000 mcg 03/17/20 10:00 03/20/20 10:12 Cyanocobalamin (Vit B-12) 1000 Mcg Tab PO 1,000 mcg QDAY RUBIO Administration Famotidine 20 mg 03/19/20 22:00 03/20/20 10:12 Famotidine 20 Mg Tab PO 20 mg BID RUBIO Administration Furosemide 40 mg 03/17/20 06:00 03/20/20 06:34 Furosemide 40 Mg/4 Ml Inj IV 40 mg 0600,1800 RUBIO Administration Heparin Sodium (Porcine) 5,000 unit 03/17/20 10:00 03/20/20 10:13 Heparin 5,000 Unit/1 Ml Vial SUB-Q 5,000 unit Q12HR RUBIO Administration Hydromorphone HCl 0.5 mg 03/17/20 00:50 03/17/20 02:00 Hydromorphone 1 Mg/1 Ml Inj IV 0.5 mg Q3H PRN Administration Pain , Severe (7-10) Magnesium Sulfate 4 gm in 100 mls @ 25 mls/hr 03/20/20 11:38 Magnesium Sulfate 4gm/100ml IV 03/20/20 15:37 ONCE ONE Lorazepam 1 mg 03/17/20 10:00 03/20/20 10:12 Lorazepam 1 Mg Tab PO 1 mg DAILY RUBIO Administration Methocarbamol 750 mg 03/17/20 00:35 Methocarbamol 750 Mg Tab PO BID PRN Muscle Spasm Metoclopramide HCl 10 mg 03/17/20 00:50 Metoclopramide 10 Mg/2 Ml Inj IV Q6H PRN Nausea And Vomiting Metoprolol Tartrate 25 mg 03/18/20 19:21 03/20/20 10:12 Metoprolol Tartrate 25 Mg Tab PO 25 mg BID RUBIO Administration Ondansetron HCl 4 mg 03/17/20 00:50 Ondansetron 4 Mg/2 Ml Inj IV Q8H PRN Nausea And Vomiting Pravastatin Sodium 80 mg 03/17/20 22:00 03/19/20 23:00 Pravastatin 80 Mg Tab PO 80 mg QHS RUBIO Administration Sodium Chloride 10 ml 03/17/20 10:00 03/20/20 10:29 Sodium Chloride 0.9% 10 Ml Flush Syringe IV 10 ml BID RUBIO Administration Sodium Chloride 10 ml 03/17/20 00:50 03/19/20 23:02 Sodium Chloride 0.9% 10 Ml Flush Syringe IV 10 ml PRN PRN Administration LINE FLUSH Sodium Chloride 1 gm 03/17/20 22:00 03/20/20 10:28 Sodium Chloride 1 Gm Tab PO 1 gm BID RUBIO Administration Nutrition/Malnutrition Assess - Dietary Evaluation Nutrition/Malnutrition Findings: Nutrition Notes Start: 03/17/20 13:30 Freq: Status: Active Protocol: Document 03/19/20 11:09 EN (Rec: 03/19/20 11:15 EN [id number]) Co-Sign 03/19/20 11:09 Nutrition Notes Initial or Follow up Reassessment Current Diagnosis COPD,Decubitus(Pressure Ulcer) ,Hypertension,Heart Failure Other Pertinent Diagnosis bilat lower edema, SOB, pulmonary edema, dyspena, SIRS , asthma Current Diet cardiac/ consistent CHO with mechanical soft Labs/Tests Na 131 K+ 3.2 BUN 28 Pertinent Medications Lasix K-Dur at 40 meq Vitamin B-12 Height 5 ft 6 in Weight 63.5 kg [place] Body Weight (kg) 64.54 BMI 22.6 Weight Status Appropriate Subjective/Other Information F/u for intakes and weight. Pt 's wt stable. Pt consuming 50% of meals with a good appetite . Pt does not like the food but does not have any preferences to note. Pt denies N/V/D. Percent of energy/protein needs met: 52%/55% Burn Absent Trauma Absent GI Symptoms None Difficulty In Swallowing,Chewing Current % PO Fair (50-74%) Minimum of two criteria Yes Energy Intake (severe) < or equal to 50% Estimated Energy Requirement > or equal to 5 days Fluid Accumulation Moderate to Severe (severe) Reduced [employer] Strength Measurably Reduced (severe) #3 Nutrition Diagnosis Increased nutrient needs ( specify in comment below) Diagnosis Progress(for reassessment Continues documentation) #2 Nutrition Diagnosis Inadequate oral intake As Evidenced by Signs and Symptoms Pt consuming 50% of meals Diagnosis Progress(for reassessment Improved documentation) #1 Nutrition Diagnosis Malnutrition Diagnosis Progress(for reassessment Continues documentation) Is patient on ventilator? No Is Patient Ambulatory and/or Out of Bed No REE-([place]-St. Jeor-confined to bed) 1540.416 Kcal/Kg value to use for calculation 30 Approximate Energy Requirements Using 1905 kcal/Kg Calculation Used for Recommendations Kcal/kg Additional Notes Protein needs 1.25-1.5g/kg (79 -95g/day) Fluid needs 1ml/kcal or MD order Nutrition Intervention Change Diet Order: Continue current diet Goal #1 Meet at least 75% of energy and protein needs via PO Goal #2 Wt gain/maintenance Anticipated Discharge Needs: Cardiac/Consistent CHO with mechanical soft modification Follow-Up By: 03/23/20 Additional Comments F/u for intakes
[2020-03-20] MEDS ORDERED: AMIODARONE 150 MG in DEXTROSE 5% IN WATER 100 ML IV ONE (13:41)
--- NOTE | 2020-03-20 13:46 | Progress Note ---
Assessment and Plan - Patient Problems (1) Paroxysmal atrial fibrillation Current Visit: Yes Status: Acute Plan to address problem: For persistent and recurrent bouts of rapid atrial fibrillation, we will increase metoprolol to 25 mg every 6 hours, and add amiodarone therapy. We will discontinue subcutaneous heparin, and add Eliquis 5 mg twice daily for long-term oral anticoagulation. The patient's TSH was normal at 0.8. Subjective Date of service: 03/20/20 Interval history: Patient is comfortable, no acute distress. Telemetry shows recurrent bouts of sustained, rapid atrial fibrillation. Objective Vital Signs Temp Pulse Pulse Pulse Resp Resp BP 03/20/20 10:12 147 H 03/20/20 07:58 100 H 18 03/20/20 04:58 97.8 F 91 H 16 137/76 03/19/20 23:01 100 H 128/70 03/19/20 22:15 100 H 18 03/19/20 21:53 03/19/20 21:50 75 19 03/19/20 19:47 98 H 03/19/20 15:23 98.2 F 92 H 20 141/71 Pulse Ox 03/20/20 10:12 03/20/20 07:58 97 03/20/20 04:58 93 03/19/20 23:01 03/19/20 22:15 92 03/19/20 21:53 95 03/19/20 21:50 03/19/20 19:47 03/19/20 15:23 96 - Physical Examination General: No Apparent Distress HEENT: Positive: PERRL Neck: Positive: trachea midline Cardiac: Positive: irregularly irregular Lungs: Positive: Decreased Breath Sounds Neuro: Positive: Weakness Abdomen: Positive: Soft Skin: Positive: Clear Extremities: Absent: edema - Labs and Meds Comprehensive Metabolic Panel 03/19/20 03/20/20 Range/Units 22:59 04:00 Sodium 138 137 (137-145) mmol/L Potassium 3.7 (3.6-5.0) mmol/L Chloride 92.6 L (98-107) mmol/L Carbon Dioxide 34 H (22-30) mmol/L BUN 26 H (9-20) mg/dL Creatinine 0.8 (0.8-1.3) mg/dL Glucose 96 (75-100) mg/dL Calcium 9.1 (8.4-10.2) mg/dL - Imaging and Cardiology EKG: report reviewed (Sinus rhythm no acute ST-T wave changes)
[2020-03-20] MEDS ORDERED: acetaZOLAMIDE 250 MG TAB PO ONE (14:25)
--- NOTE | 2020-03-20 14:27 | Progress Note ---
Assessment and Plan 1. Hypervolemic Hyponatremia: 2/2 decompensated diastolic CHF and Metolazone. Fluid restriction. On IV Lasix. Sodium level has improved. Monitor Sodium level. 2. FEN: Volume overload, IV Lasix. Metabolic alkalosis, Diamox, monitor. Monitor lytes and volume status. 3. CHF exacerbation: Strict I/O, monitor urine output, daily weight, afterload reduction, blood pressure control, diuresis with Lasix. Echocardiogram showed normal EF and diastolic dysfunction. 4. Recurrent episodes of A.fib with RVR: Followed by Cards. 5. Chronic hypoxic respiratory failure: Continue supplemental oxygen. 6. COPD (chronic obstructive pulmonary disease): Supplemental oxygen, nebulizer therapy. 7. Hypertension: Monitor blood pressure. Subjective: Patient was seen and examined at the bedside. Examination: General appearance: well-developed, appears stated age, no distress, NC O2 HEENT: ATNC Eyes: JOI Neck: trachea midline Respiratory: ctab Heart: regular, S1S2, no murmur Gastrointestinal: soft, normoactive bowel sounds, not tender, not distended Integumentary: LE stasis changes noted Neurologic: able to move extremities Ext: no edema noted Subjective Date of service: 03/20/20 Objective - Vital Signs Vital signs: Vital Signs - 12hr 03/20/20 03/20/20 03/20/20 04:58 07:58 10:12 Temperature 97.8 F Pulse Rate 91 H 147 H Pulse Rate [ 100 H Bilateral Throughout] Respiratory 16 Rate Respiratory 18 Rate [Bilateral Throughout] Blood Pressure 137/76 O2 Sat by Pulse 93 97 Oximetry - Lab 03/19/20 05:00 03/20/20 04:00 Most recent lab results Calcium 9.1 mg/dL (8.4-10.2) 03/20/20 04:00 Phosphorus 2.90 mg/dL (2.5-4.5) 03/18/20 04:47 Magnesium 1.20 mg/dL (1.7-2.3) L 03/20/20 04:00 Medications & Allergies - Medications Allergies/Adverse Reactions: Allergies Penicillins Allergy (Verified 02/13/19 10:54) Anaphylaxis Home Medications: Home Medications Medication Instructions Recorded Confirmed Last Taken Type Calcium Carbonate/Vitamin D3 600 tab-cap PO QDAY MDD supplement 02/14/19 02/03/20 02/03/20 History [Calcium 600 with Vit D Chew Tb] Cyanocobalamin (Vitamin B-12) 1,000 mcg PO QDAY 02/14/19 02/03/20 02/03/20 History [Vitamin B12] Simvastatin 40 mg PO QHS 02/14/19 02/03/20 02/02/20 History Aspirin [Aspirin BABY CHEW TAB] 81 mg PO HS 02/03/20 02/03/20 02/03/20 History Fluticasone/Vilanterol [Breo 100 mcg IH DAILY 02/03/20 02/03/20 02/03/20 History Ellipta 100-25 Mcg INH] Furosemide [Lasix TAB] 40 mg PO BID 02/03/20 02/03/20 02/03/20 History LORazepam [Lorazepam] 1 mg PO DAILY 02/03/20 02/03/20 02/03/20 History Losartan [Cozaar] 100 mg PO QDAY 02/03/20 02/03/20 02/03/20 History Multivitamin [Multiple Vitamins] 1 each PO DAILY 02/03/20 02/03/20 02/03/20 History Potassium Chloride [K-Dur] 10 meq PO QDAY 02/03/20 02/03/20 02/02/20 History Tiotropium [place] [Spiriva 2 spray IH HS 02/03/20 02/03/20 02/02/20 History Respimat] guaiFENesin [Mucus Relief ER] 1,200 mg PO HS 02/03/20 02/03/20 Unknown History methOCARBAMOL 750 mg PO BID PRN 02/03/20 02/03/20 Unknown History ALBUTEROL NEB's [Proventil 0.083% 2.5 mg IH Q4HRT PRN #7 nebu 02/09/20 Unknown Rx NEBS] ALBUTEROL NEB's [Proventil 0.083% 5 mg IH TID PRN #20 neb 02/09/20 Unknown Rx NEBS] Acetaminophen [Acetaminophen TAB] 650 mg PO Q4H PRN tablet 02/09/20 Unknown Rx Arformoterol Nebu [Brovana Nebu] 15 mcg IH Q12HRT #1 ml 02/09/20 Unknown Rx Budesonide [Pulmicort Respules] 0.5 mg IH Q12HRT #1 nebu 02/09/20 Unknown Rx Calc Carb/Vit D 500 mg-200 Uni 1 each PO DAILY tablet 02/09/20 Unknown Rx [[place] D 500 mg-200 Unit] Cyanocobalamin [Vitamin B-12] 1,000 mcg PO QDAY tablet 02/09/20 Unknown Rx Losartan [Cozaar] 100 mg PO QDAY #30 tablet 02/09/20 Unknown Rx Multivitamin Tab [Multiple Vitamin 1 each PO DAILY #30 tablet 02/09/20 Unknown Rx TAB (Theragran)] guaiFENesin ER [Mucinex ER] 1,200 mg PO QHS tablet 02/09/20 Unknown Rx methOCARBAMOL [Robaxin TAB] 750 mg PO BID PRN tablet 02/09/20 Unknown Rx Active Medications: Generic Name Dose Route Start Last Admin Trade Name Freq PRN Reason Stop Dose Admin Acetaminophen 650 mg 03/17/20 00:50 03/19/20 06:26 Acetaminophen 325 Mg Tab PO 325 mg Q4H PRN Administration Pain MILD(1-3)/Fever >100.5/GARCIA Albuterol 2.5 mg 03/17/20 00:35 Albuterol 2.5 Mg/3 Ml Nebu IH Q4HRT PRN Shortness Of Breath Amiodarone HCl 200 mg 03/20/20 14:00 Amiodarone 200 Mg Tab PO BID RUBIO Apixaban 5 mg 03/20/20 22:00 Apixaban 5 Mg Tab PO Q12HR RUBIO Protocol Arformoterol Tartrate 15 mcg 03/17/20 00:45 03/20/20 07:59 Arformoterol 15 Mcg/2 Ml Nebu IH 15 mcg Q12HRT RUBIO Administration Aspirin 81 mg 03/17/20 22:00 03/19/20 23:00 Aspirin 81 Mg Tab Chew PO 81 mg HS RUBIO Administration Budesonide 0.5 mg 03/17/20 00:45 03/20/20 07:58 Budesonide 0.5 Mg/2 Ml Nebu IH 0.5 mg Q12HRT RUBIO Administration Calcium/Vitamin D 1 each 03/17/20 10:00 03/20/20 10:12 Calcium Carbonate/Vitamin D3 500 Mg-200 Unit Tab PO 1 each DAILY RUBIO Administration Cyanocobalamin 1,000 mcg 03/17/20 10:00 03/20/20 10:12 Cyanocobalamin (Vit B-12) 1000 Mcg Tab PO 1,000 mcg QDAY RUBIO Administration Famotidine 20 mg 03/19/20 22:00 03/20/20 10:12 Famotidine 20 Mg Tab PO 20 mg BID RUBIO Administration Furosemide 40 mg 03/17/20 06:00 03/20/20 06:34 Furosemide 40 Mg/4 Ml Inj IV 40 mg 0600,1800 RUBIO Administration Hydromorphone HCl 0.5 mg 03/17/20 00:50 03/17/20 02:00 Hydromorphone 1 Mg/1 Ml Inj IV 0.5 mg Q3H PRN Administration Pain , Severe (7-10) Magnesium Sulfate 4 gm in 100 mls @ 25 mls/hr 03/20/20 11:38 Magnesium Sulfate 4gm/100ml IV 03/20/20 15:37 ONCE ONE Lorazepam 1 mg 03/17/20 10:00 03/20/20 10:12 Lorazepam 1 Mg Tab PO 1 mg DAILY RUBIO Administration Methocarbamol 750 mg 03/17/20 00:35 Methocarbamol 750 Mg Tab PO BID PRN Muscle Spasm Metoclopramide HCl 10 mg 03/17/20 00:50 Metoclopramide 10 Mg/2 Ml Inj IV Q6H PRN Nausea And Vomiting Metoprolol Tartrate 25 mg 03/20/20 14:00 Metoprolol Tartrate 25 Mg Tab PO Q6H RUBIO Ondansetron HCl 4 mg 03/17/20 00:50 Ondansetron 4 Mg/2 Ml Inj IV Q8H PRN Nausea And Vomiting Pravastatin Sodium 80 mg 03/17/20 22:00 03/19/20 23:00 Pravastatin 80 Mg Tab PO 80 mg QHS RUBIO Administration Sodium Chloride 10 ml 03/17/20 10:00 03/20/20 10:29 Sodium Chloride 0.9% 10 Ml Flush Syringe IV 10 ml BID RUBIO Administration Sodium Chloride 10 ml 03/17/20 00:50 03/20/20 14:21 Sodium Chloride 0.9% 10 Ml Flush Syringe IV 10 ml PRN PRN Administration LINE FLUSH Sodium Chloride 1 gm 03/17/20 22:00 03/20/20 10:28 Sodium Chloride 1 Gm Tab PO 1 gm BID RUBIO Administration
[2020-03-20] MEDS: AMIODARONE 200 MG TAB PO SCH ×2 (16:43→23:19)
--- NOTE | 2020-03-20 22:30 | Progress Note ---
Assessment and Plan Assessment and plan: --Transient atrial fibrillation with RVR; We will continue metoprolol Cardiology started amiodarone and Eliquis We will closely monitor the patient and adjust management as needed --Hypomagnesemia; replenish with 4 g IV magnesium sulfate I will follow electrolytes --Hyponatremia resolved Current Visit: Yes Status: Acute Plan to address problem: Severe sodium 117 at admission Improved to [phone] Closely monitor electrolytes, nephrology consulted -- Acute exacerbation of CHF (congestive heart failure) Current Visit: Yes Status: Acute Plan to address problem: Follow echocardiogram Continue antifailure medications --Bilateral lower extremity edema Current Visit: Yes Status: Acute Plan to address problem: Significantly improved Patient has history of severe COPD We will get echocardiogram IV Lasix in the meantime --SIRS; without organ dysfunction/present on admission Leukocytosis tachycardia --Hypokalemia/present on admission/resolved Current Visit: Yes Status: Acute . Replenished, closely monitor electrolytes -- Elevated troponin/NSTEMI Current Visit: Yes Status: Acute Plan to address problem: Possible troponin leak Cardiology following -- DVT prophylaxis Current Visit: Yes Status: Acute Plan to address problem: On heparin and GI prophylaxis Closely monitor the patient and adjust the management as needed 03/20/2020; severe hypomagnesemia, replenished with IV mag sulfate Brief episodes of A. fib with rapid ventricular rate, cardiology started on amiodarone and Eliquis Patient is already on beta-blockers, will closely monitor Possible discharge in 1 to 2 days if stable History Interval history: I have seen and examined the patient Patient's chart and medications reviewed Patient feels slightly better confused at times Has brief episodes of A. fib with rapid ventricular rate Cardiology following Vital signs noted Hospitalist Physical - Constitutional Vitals: Temp Pulse Resp BP Pulse Ox 98.5 F 91 H 18 138/78 96 03/20/20 20:01 03/20/20 21:09 03/20/20 21:09 03/20/20 20:01 03/20/20 21:10 General appearance: Present: no acute distress, mild distress, well-nourished - EENT Eyes: Present: PERRL, EOM intact - Neck Neck: Present: supple, normal ROM - Respiratory Respiratory effort: normal Respiratory: bilateral: diminished, negative: rales, rhonchi, wheezing - Cardiovascular Rhythm: regular Heart Sounds: Present: S1 & S2 - Extremities Extremities: no ischemia, No edema - Abdominal General gastrointestinal: soft, non-tender, non-distended, normal bowel sounds - Integumentary Integumentary: Present: clear, warm - Psychiatric Psychiatric: appropriate mood/affect, cooperative, other (Confused at times) - Neurologic Neurologic: moves all extremities HEART Score - HEART Score Age: > 65 Risk factors: > 3 risk factors or hx of atherosclerotic disease Troponin: Troponin T 0.052 ng/mL (0.00-0.029) H 03/16/20 15:48 - Critical Actions Critical Actions: 4-6 pts:12-16.6% risk of adverse cardiac event. Should be admitted Results - Labs CBC & Chem 7: 03/19/20 05:00 03/20/20 04:00 Labs: Laboratory Last Values WBC 11.8 K/mm3 (4.5-11.0) H 03/19/20 05:00 RBC 3.59 M/mm3 (3.65-5.03) L 03/19/20 05:00 Hgb 10.6 gm/dl (11.8-15.2) L 03/19/20 05:00 Hct 30.3 % (35.5-45.6) L 03/19/20 05:00 MCV 85 fl (84-94) 03/19/20 05:00 MCH 30 pg (28-32) 03/19/20 05:00 MCHC 35 % (32-34) H 03/19/20 05:00 RDW 13.6 % (13.2-15.2) 03/19/20 05:00 Plt Count 295 K/mm3 (140-440) 03/19/20 05:00 Lymph % (Auto) 11.4 % (13.4-35.0) L 03/19/20 05:00 [place] % (Auto) 9.0 % (0.0-7.3) H 03/19/20 05:00 Eos % (Auto) 0.9 % (0.0-4.3) 03/19/20 05:00 Baso % (Auto) 0.7 % (0.0-1.8) 03/19/20 05:00 Lymph # (Auto) 1.3 K/mm3 (1.2-5.4) 03/19/20 05:00 [place] # (Auto) 1.1 K/mm3 (0.0-0.8) H 03/19/20 05:00 Eos # (Auto) 0.1 K/mm3 (0.0-0.4) 03/19/20 05:00 Baso # (Auto) 0.1 K/mm3 (0.0-0.1) 03/19/20 05:00 Seg Neutrophils % 78.0 % (40.0-70.0) H 03/19/20 05:00 Seg Neutrophils # 9.2 K/mm3 (1.8-7.7) H 03/19/20 05:00 PT 13.5 Sec. (12.2-14.9) 03/16/20 15:48 INR 1.04 (0.87-1.13) 03/16/20 15:48 APTT 30.0 Sec. (24.2-36.6) 03/16/20 15:48 Sodium 137 mmol/L (137-145) 03/20/20 04:00 Potassium 3.7 mmol/L (3.6-5.0) 03/20/20 04:00 Chloride 92.6 mmol/L (98-107) L 03/20/20 04:00 Carbon Dioxide 34 mmol/L (22-30) H 03/20/20 04:00 Anion Gap 14 mmol/L 03/20/20 04:00 BUN 26 mg/dL (9-20) H 03/20/20 04:00 Creatinine 0.8 mg/dL (0.8-1.3) 03/20/20 04:00 Estimated GFR > 60 ml/min 03/20/20 04:00 BUN/Creatinine Ratio 33 % 03/20/20 04:00 Glucose 96 mg/dL (75-100) 03/20/20 04:00 Hemoglobin A1c 5.6 % (4-6) 03/17/20 05:13 Osmolality 261 Mosm/kg 03/17/20 05:13 Calcium 9.1 mg/dL (8.4-10.2) 03/20/20 04:00 Phosphorus 2.90 mg/dL (2.5-4.5) 03/18/20 04:47 Magnesium 1.20 mg/dL (1.7-2.3) L 03/20/20 04:00 Total Bilirubin 0.80 mg/dL (0.1-1.2) 03/17/20 05:13 AST 41 units/L (5-40) H 03/17/20 05:13 ALT 36 units/L (7-56) 03/17/20 05:13 Alkaline Phosphatase 111 units/L (35-129) 03/17/20 05:13 Troponin T 0.052 ng/mL (0.00-0.029) H 03/16/20 15:48 NT-Pro-B Natriuret Pep 711.6 pg/mL (0-900) 03/16/20 15:48 Total Protein 6.3 g/dL (6.3-8.2) 03/17/20 05:13 Albumin 3.1 g/dL (3.9-5) L 03/17/20 05:13 Albumin/Globulin Ratio 1.0 % 03/17/20 05:13 Triglycerides 72 mg/dL (2-149) 03/16/20 15:48 Cholesterol 139 mg/dL (50-199) 03/16/20 15:48 LDL Cholesterol Direct 73 mg/dL (50-130) 03/16/20 15:48 HDL Cholesterol 69 mg/dL (40-59) H 03/16/20 15:48 Cholesterol/HDL Ratio 2.01 % 03/16/20 15:48 TSH 0.834 mlU/mL (0.270-4.200) 03/19/20 12:44 Free T4 1.44 ng/dL (0.76-1.46) 03/19/20 12:44 Urine Osmolality 305 Mosm/kg 03/17/20 Unknown Nasal Screen MRSA (PCR) Negative (Negative) 03/17/20 03:43 [place]/IV: Voiding Method Condom Catheter IV Catheter Type [Left Forearm INT / Saline Lock ] IV Catheter Type [Right Hand] Peripheral IV Active Medications - Current Medications Current Medications: Generic Name Dose Route Start Last Admin Trade Name Freq PRN Reason Stop Dose Admin Acetaminophen 650 mg 03/17/20 00:50 03/19/20 06:26 Acetaminophen 325 Mg Tab PO 325 mg Q4H PRN Administration Pain MILD(1-3)/Fever >100.5/GARCIA Albuterol 2.5 mg 03/17/20 00:35 Albuterol 2.5 Mg/3 Ml Nebu IH Q4HRT PRN Shortness Of Breath Amiodarone HCl 200 mg 03/20/20 14:00 03/20/20 16:43 Amiodarone 200 Mg Tab PO 200 mg BID RUBIO Administration Apixaban 5 mg 03/20/20 22:00 Apixaban 5 Mg Tab PO Q12HR RUBIO Protocol Arformoterol Tartrate 15 mcg 03/17/20 00:45 03/20/20 21:06 Arformoterol 15 Mcg/2 Ml Nebu IH 15 mcg Q12HRT RUBIO Administration Aspirin 81 mg 03/17/20 22:00 03/19/20 23:00 Aspirin 81 Mg Tab Chew PO 81 mg HS RUBIO Administration Budesonide 0.5 mg 03/17/20 00:45 03/20/20 21:06 Budesonide 0.5 Mg/2 Ml Nebu IH 0.5 mg Q12HRT RUBIO Administration Calcium/Vitamin D 1 each 03/17/20 10:00 03/20/20 10:12 Calcium Carbonate/Vitamin D3 500 Mg-200 Unit Tab PO 1 each DAILY RUBIO Administration Cyanocobalamin 1,000 mcg 03/17/20 10:00 03/20/20 10:12 Cyanocobalamin (Vit B-12) 1000 Mcg Tab PO 1,000 mcg QDAY RUBIO Administration Famotidine 20 mg 03/19/20 22:00 03/20/20 10:12 Famotidine 20 Mg Tab PO 20 mg BID RUBIO Administration Furosemide 40 mg 03/21/20 10:00 Furosemide 40 Mg/4 Ml Inj IV DAILY RUBIO Hydromorphone HCl 0.5 mg 03/17/20 00:50 03/17/20 02:00 Hydromorphone 1 Mg/1 Ml Inj IV 0.5 mg Q3H PRN Administration Pain , Severe (7-10) Lorazepam 1 mg 03/17/20 10:00 03/20/20 10:12 Lorazepam 1 Mg Tab PO 1 mg DAILY RUBIO Administration Methocarbamol 750 mg 03/17/20 00:35 Methocarbamol 750 Mg Tab PO BID PRN Muscle Spasm Metoclopramide HCl 10 mg 03/17/20 00:50 Metoclopramide 10 Mg/2 Ml Inj IV Q6H PRN Nausea And Vomiting Metoprolol Tartrate 25 mg 03/20/20 14:00 03/20/20 16:57 Metoprolol Tartrate 25 Mg Tab PO 25 mg Q6H RUBIO Administration Ondansetron HCl 4 mg 03/17/20 00:50 Ondansetron 4 Mg/2 Ml Inj IV Q8H PRN Nausea And Vomiting Pravastatin Sodium 80 mg 03/17/20 22:00 03/19/20 23:00 Pravastatin 80 Mg Tab PO 80 mg QHS RUBIO Administration Sodium Chloride 10 ml 03/17/20 10:00 03/20/20 10:29 Sodium Chloride 0.9% 10 Ml Flush Syringe IV 10 ml BID RUBIO Administration Sodium Chloride 10 ml 03/17/20 00:50 03/20/20 14:21 Sodium Chloride 0.9% 10 Ml Flush Syringe IV 10 ml PRN PRN Administration LINE FLUSH Sodium Chloride 1 gm 03/17/20 22:00 03/20/20 10:28 Sodium Chloride 1 Gm Tab PO 1 gm BID RUBIO Administration Nutrition/Malnutrition Assess - Dietary Evaluation Nutrition/Malnutrition Findings: Nutrition Notes Start: 03/17/20 13:30 Freq: Status: Active Protocol: Document 03/19/20 11:09 EN (Rec: 03/19/20 11:15 EN [id number]) Co-Sign 03/19/20 11:09 Nutrition Notes Initial or Follow up Reassessment Current Diagnosis COPD,Decubitus(Pressure Ulcer) ,Hypertension,Heart Failure Other Pertinent Diagnosis bilat lower edema, SOB, pulmonary edema, dyspena, SIRS , asthma Current Diet cardiac/ consistent CHO with mechanical soft Labs/Tests Na 131 K+ 3.2 BUN 28 Pertinent Medications Lasix K-Dur at 40 meq Vitamin B-12 Height 5 ft 6 in Weight 63.5 kg [place] Body Weight (kg) 64.54 BMI 22.6 Weight Status Appropriate Subjective/Other Information F/u for intakes and weight. Pt 's wt stable. Pt consuming 50% of meals with a good appetite . Pt does not like the food but does not have any preferences to note. Pt denies N/V/D. Percent of energy/protein needs met: 52%/55% Burn Absent Trauma Absent GI Symptoms None Difficulty In Swallowing,Chewing Current % PO Fair (50-74%) Minimum of two criteria Yes Energy Intake (severe) < or equal to 50% Estimated Energy Requirement > or equal to 5 days Fluid Accumulation Moderate to Severe (severe) Reduced Working Second Hand Strength Measurably Reduced (severe) #3 Nutrition Diagnosis Increased nutrient needs ( specify in comment below) Diagnosis Progress(for reassessment Continues documentation) #2 Nutrition Diagnosis Inadequate oral intake As Evidenced by Signs and Symptoms Pt consuming 50% of meals Diagnosis Progress(for reassessment Improved documentation) #1 Nutrition Diagnosis Malnutrition Diagnosis Progress(for reassessment Continues documentation) Is patient on ventilator? No Is Patient Ambulatory and/or Out of Bed No REE-([place]-confined to bed) [phone] Kcal/Kg value to use for calculation 30 Approximate Energy Requirements Using 1905 kcal/Kg Calculation Used for Recommendations Kcal/kg Additional Notes Protein needs 1.25-1.5g/kg (79 -95g/day) Fluid needs 1ml/kcal or MD order Nutrition Intervention Change Diet Order: Continue current diet Goal #1 Meet at least 75% of energy and protein needs via PO Goal #2 Wt gain/maintenance Anticipated Discharge Needs: Cardiac/Consistent CHO with mechanical soft modification Follow-Up By: 03/23/20 Additional Comments F/u for intakes
[2020-03-20] MEDS: ASPIRIN 81 MG TAB CHEW PO SCH (23:19)
[2020-03-20] MEDS: PRAVASTATIN 80 MG TAB PO SCH (23:19)
[2020-03-20] MEDS: APIXABAN 5 MG TAB PO SCH (23:19)
[2020-03-21] MEDS: METOPROLOL TARTRATE 25 MG TAB PO SCH ×4 (02:05→22:27)
[2020-03-21] MEDS: ARFORMOTEROL 15 MCG/2 ML NEBU IH SCH ×2 (07:52→20:08)
[2020-03-21] MEDS: BUDESONIDE 0.5 MG/2 ML NEBU IH SCH ×2 (07:53→20:08)
[2020-03-21] MEDS: SODIUM CHLORIDE 1 GM TAB PO SCH ×2 (09:04→22:31)
[2020-03-21] MEDS: LORazepam 1 MG TAB PO SCH (09:04)
[2020-03-21] MEDS: APIXABAN 5 MG TAB PO SCH ×2 (09:04→22:30)
[2020-03-21] MEDS: FAMOTIDINE 20 MG TAB PO SCH ×2 (09:04→22:30)
[2020-03-21] MEDS: CYANOCOBALAMIN (VIT B-12) 1000 MCG TAB PO SCH (09:05)
[2020-03-21] MEDS: AMIODARONE 200 MG TAB PO SCH ×2 (09:05→22:31)
[2020-03-21] MEDS: CALCIUM CARBONATE/VITAMIN D3 500 MG-200 UNIT TAB PO SCH (09:05)
[2020-03-21 09:48] LABS: BUN/Creatinine Ratio 27; Blood Urea Nitrogen 24 mg/dL (9-20); Calcium 8.9 mg/dL (8.4-10.2); Hemolysis Index 0
[2020-03-21] MEDS ORDERED: FUROSEMIDE 40 MG/4 ML INJ IV SCH (10:00)
--- NOTE | 2020-03-21 10:33 | Progress Note ---
Assessment and Plan 1. Hypervolemic Hyponatremia: 2/2 decompensated diastolic CHF and Metolazone. Fluid restriction. On Lasix. Sodium level has improved. Monitor Sodium level. 2. FEN: Volume overload, much betterm change IV to PO Lasix. Metabolic alkalosis, Diamox as needed, monitor. Replete K and Phos. Monitor lytes and volume status. 3. CHF exacerbation: Strict I/O, monitor urine output, daily weight, afterload reduction, blood pressure control, diuresis with Lasix. Echocardiogram showed normal EF and diastolic dysfunction. 4. Recurrent episodes of A.fib with RVR: Followed by Cards. 5. Chronic hypoxic respiratory failure: Continue supplemental oxygen. 6. COPD (chronic obstructive pulmonary disease): Supplemental oxygen, nebulizer therapy. 7. Hypertension: Monitor blood pressure. Subjective: Patient was seen and examined at the bedside. Examination: General appearance: well-developed, appears stated age, no distress, NC O2 HEENT: ATNC Eyes: JOI Neck: trachea midline Respiratory: ctab Heart: regular, S1S2, no murmur Gastrointestinal: soft, normoactive bowel sounds, not tender, not distended Integumentary: LE stasis changes noted Neurologic: somnolent, conversing, able to move extremities Ext: no edema noted Subjective Date of service: 03/21/20 Objective - Vital Signs Vital signs: Vital Signs - 12hr 03/21/20 03/21/20 03/21/20 00:56 05:17 07:50 Temperature 98.3 F 98.4 F 97.3 F L Pulse Rate 77 78 70 Pulse Rate [ Bilateral Throughout] Respiratory 18 20 20 Rate Respiratory Rate [Bilateral Throughout] Blood Pressure 113/66 145/65 119/68 O2 Sat by Pulse 93 93 97 Oximetry 03/21/20 03/21/20 07:53 08:43 Temperature Pulse Rate 70 Pulse Rate [ 69 Bilateral Throughout] Respiratory Rate Respiratory 20 Rate [Bilateral Throughout] Blood Pressure 119/68 O2 Sat by Pulse 98 Oximetry - Lab 03/19/20 05:00 03/21/20 08:41 Most recent lab results Calcium 8.9 mg/dL (8.4-10.2) 03/21/20 08:41 Phosphorus 2.90 mg/dL (2.5-4.5) 03/18/20 04:47 Magnesium 2.40 mg/dL (1.7-2.3) H 03/21/20 08:41 Medications & Allergies - Medications Allergies/Adverse Reactions: Allergies Penicillins Allergy (Verified 02/13/19 10:54) Anaphylaxis Home Medications: Home Medications Medication Instructions Recorded Confirmed Last Taken Type Calcium Carbonate/Vitamin D3 600 tab-cap PO QDAY MDD supplement 02/14/19 02/03/20 02/03/20 History [Calcium 600 with Vit D Chew Tb] Cyanocobalamin (Vitamin B-12) 1,000 mcg PO QDAY 02/14/19 02/03/20 02/03/20 History [Vitamin B12] Simvastatin 40 mg PO QHS 02/14/19 02/03/20 02/02/20 History Aspirin [Aspirin BABY CHEW TAB] 81 mg PO HS 02/03/20 02/03/20 02/03/20 History Fluticasone/Vilanterol [Breo 100 mcg IH DAILY 02/03/20 02/03/20 02/03/20 History Ellipta 100-25 Mcg INH] Furosemide [Lasix TAB] 40 mg PO BID 02/03/20 02/03/20 02/03/20 History LORazepam [Lorazepam] 1 mg PO DAILY 02/03/20 02/03/20 02/03/20 History Losartan [Cozaar] 100 mg PO QDAY 02/03/20 02/03/20 02/03/20 History Multivitamin [Multiple Vitamins] 1 each PO DAILY 02/03/20 02/03/20 02/03/20 History Potassium Chloride [K-Dur] 10 meq PO QDAY 02/03/20 02/03/20 02/02/20 History Tiotropium [place] [Spiriva 2 spray IH HS 02/03/20 02/03/20 02/02/20 History Respimat] guaiFENesin [Mucus Relief ER] 1,200 mg PO HS 02/03/20 02/03/20 Unknown History methOCARBAMOL 750 mg PO BID PRN 02/03/20 02/03/20 Unknown History ALBUTEROL NEB's [Proventil 0.083% 2.5 mg IH Q4HRT PRN #7 nebu 02/09/20 Unknown Rx NEBS] ALBUTEROL NEB's [Proventil 0.083% 5 mg IH TID PRN #20 neb 02/09/20 Unknown Rx NEBS] Acetaminophen [Acetaminophen TAB] 650 mg PO Q4H PRN tablet 02/09/20 Unknown Rx Arformoterol Nebu [Brovana Nebu] 15 mcg IH Q12HRT #1 ml 02/09/20 Unknown Rx Budesonide [Pulmicort Respules] 0.5 mg IH Q12HRT #1 nebu 02/09/20 Unknown Rx Calc Carb/Vit D 500 mg-200 Uni 1 each PO DAILY tablet 02/09/20 Unknown Rx [[place] D 500 mg-200 Unit] Cyanocobalamin [Vitamin B-12] 1,000 mcg PO QDAY tablet 02/09/20 Unknown Rx Losartan [Cozaar] 100 mg PO QDAY #30 tablet 02/09/20 Unknown Rx Multivitamin Tab [Multiple Vitamin 1 each PO DAILY #30 tablet 02/09/20 Unknown Rx TAB (Theragran)] guaiFENesin ER [Mucinex ER] 1,200 mg PO QHS tablet 02/09/20 Unknown Rx methOCARBAMOL [Robaxin TAB] 750 mg PO BID PRN tablet 02/09/20 Unknown Rx Active Medications: Generic Name Dose Route Start Last Admin Trade Name Freq PRN Reason Stop Dose Admin Acetaminophen 650 mg 03/17/20 00:50 03/19/20 06:26 Acetaminophen 325 Mg Tab PO 325 mg Q4H PRN Administration Pain MILD(1-3)/Fever >100.5/GARCIA Albuterol 2.5 mg 03/17/20 00:35 Albuterol 2.5 Mg/3 Ml Nebu IH Q4HRT PRN Shortness Of Breath Amiodarone HCl 200 mg 03/20/20 14:00 03/21/20 09:05 Amiodarone 200 Mg Tab PO 200 mg BID RUBIO Administration Apixaban 5 mg 03/20/20 22:00 03/21/20 09:04 Apixaban 5 Mg Tab PO 5 mg Q12HR RUBIO Administration Protocol Arformoterol Tartrate 15 mcg 03/17/20 00:45 03/21/20 07:52 Arformoterol 15 Mcg/2 Ml Nebu IH 15 mcg Q12HRT RUBIO Administration Aspirin 81 mg 03/17/20 22:00 03/20/20 23:19 Aspirin 81 Mg Tab Chew PO 81 mg HS RUBIO Administration Budesonide 0.5 mg 03/17/20 00:45 03/21/20 07:53 Budesonide 0.5 Mg/2 Ml Nebu IH 0.5 mg Q12HRT RUBIO Administration Calcium/Vitamin D 1 each 03/17/20 10:00 03/21/20 09:05 Calcium Carbonate/Vitamin D3 500 Mg-200 Unit Tab PO 1 each DAILY RUBIO Administration Cyanocobalamin 1,000 mcg 03/17/20 10:00 03/21/20 09:05 Cyanocobalamin (Vit B-12) 1000 Mcg Tab PO 1,000 mcg QDAY RUBIO Administration Famotidine 20 mg 03/19/20 22:00 03/21/20 09:04 Famotidine 20 Mg Tab PO 20 mg BID RUBIO Administration Furosemide 40 mg 03/21/20 10:00 03/21/20 09:05 Furosemide 40 Mg/4 Ml Inj IV 40 mg DAILY RUBIO Administration Hydromorphone HCl 0.5 mg 03/17/20 00:50 03/17/20 02:00 Hydromorphone 1 Mg/1 Ml Inj IV 0.5 mg Q3H PRN Administration Pain , Severe (7-10) Lorazepam 1 mg 03/17/20 10:00 03/21/20 09:04 Lorazepam 1 Mg Tab PO 1 mg DAILY RUBIO Administration Methocarbamol 750 mg 03/17/20 00:35 Methocarbamol 750 Mg Tab PO BID PRN Muscle Spasm Metoclopramide HCl 10 mg 03/17/20 00:50 Metoclopramide 10 Mg/2 Ml Inj IV Q6H PRN Nausea And Vomiting Metoprolol Tartrate 25 mg 03/20/20 14:00 03/21/20 08:43 Metoprolol Tartrate 25 Mg Tab PO 25 mg Q6H RUBIO Administration Ondansetron HCl 4 mg 03/17/20 00:50 Ondansetron 4 Mg/2 Ml Inj IV Q8H PRN Nausea And Vomiting Potassium Chloride 40 meq 03/21/20 11:00 Potassium Chloride Er 20 Meq Tab PO 03/21/20 11:01 ONCE ONE Pravastatin Sodium 80 mg 03/17/20 22:00 03/20/20 23:19 Pravastatin 80 Mg Tab PO 80 mg QHS RUBIO Administration Sodium Chloride 10 ml 03/17/20 10:00 03/21/20 09:07 Sodium Chloride 0.9% 10 Ml Flush Syringe IV 10 ml BID RUBIO Administration Sodium Chloride 10 ml 12/16/20 00:50 03/20/20 14:21 Sodium Chloride 0.9% 10 Ml Flush Syringe IV 10 ml PRN PRN Administration LINE FLUSH Sodium Chloride 1 gm 03/17/20 22:00 03/21/20 09:04 Sodium Chloride 1 Gm Tab PO 1 gm BID RUBIO Administration
[2020-03-21] MEDS ORDERED: PHOS-NAK POWDER PACKET PO ONE (10:34)
[2020-03-21] MEDS ORDERED: POTASSIUM CHLORIDE ER 20 MEQ TAB PO ONE (11:00)
[2020-03-21] MEDS ORDERED: acetaZOLAMIDE 250 MG TAB PO ONE (12:00)
--- NOTE | 2020-03-21 12:00 | Progress Note ---
Assessment and Plan - Patient Problems (1) Paroxysmal atrial fibrillation Current Visit: Yes Status: Acute Plan to address problem: For paroxysmal atrial fibrillation, we will continue metoprolol and amiodarone therapy. We will continue Eliquis 5 mg twice daily for long-term oral anticoagulation. The patient's TSH was normal at 0.8. Subjective Date of service: 03/21/20 Interval history: Patient is comfortable, no acute distress. Telemetry shows normal sinus rhythm, no further recurrence of atrial fibrillation. Objective Vital Signs Temp Pulse Pulse Pulse Resp Resp BP 03/21/20 10:00 72 70 20 03/21/20 08:43 70 119/68 03/21/20 07:53 69 20 03/21/20 07:50 97.3 F L 70 20 119/68 03/21/20 05:17 98.4 F 78 20 145/65 03/21/20 00:56 98.3 F 77 18 113/66 03/20/20 21:10 03/20/20 21:09 91 H 18 03/20/20 20:15 77 03/20/20 20:01 98.5 F 84 20 138/78 03/20/20 19:50 20 Pulse Ox 03/21/20 10:00 03/21/20 08:43 03/21/20 07:53 98 03/21/20 07:50 97 03/21/20 05:17 93 03/21/20 00:56 93 03/20/20 21:10 96 03/20/20 21:09 03/20/20 20:15 03/20/20 20:01 91 03/20/20 19:50 - Physical Examination General: No Apparent Distress HEENT: Positive: PERRL Neck: Positive: trachea midline Cardiac: Positive: Reg Rate and Rhythm Lungs: Positive: Decreased Breath Sounds Neuro: Positive: Weakness Abdomen: Positive: Soft Skin: Positive: Clear Extremities: Absent: edema - Labs and Meds Comprehensive Metabolic Panel 03/21/20 Range/Units 08:41 Sodium 140 (137-145) mmol/L Potassium 3.1 L (3.6-5.0) mmol/L Chloride 94.5 L (98-107) mmol/L Carbon Dioxide 34 H (22-30) mmol/L BUN 24 H (9-20) mg/dL Creatinine 0.9 (0.8-1.3) mg/dL Glucose 97 (75-100) mg/dL Calcium 8.9 (8.4-10.2) mg/dL - Imaging and Cardiology EKG: report reviewed (Sinus rhythm no acute ST-T wave changes)
--- NOTE | 2020-03-21 17:40 | Progress Note ---
Subjective Date of service: 03/21/20 Interval history: Assessment and plan: -- Atrial fibrillation with RVR; cardiology note reviewed cont. BB/Eliquis and amiodarone --Hypomagnesemia; replenish with 4 g IV magnesium sulfate improved --Hyponatremia resolved Current Visit: Yes Status: Acute Plan to address problem: Severe sodium 117 at admission Improved to [phone] Closely monitor electrolytes, nephrology following -- Acute exacerbation of CHF (congestive heart failure) Current Visit: Yes Status: Acute Plan to address problem: echocardiogram done. no report so far Continue management per card. rec. --Bilateral lower extremity edema Current Visit: Yes Status: Acute Plan to address problem: Significantly improved Patient has history of severe COPD We will get echocardiogram IV Lasix in the meantime --SIRS; without organ dysfunction/present on admission Leukocytosis tachycardia --Hypokalemia Current Visit: Yes Status: Acute . Replenished, closely monitor electrolytes recheck labs in am -- Elevated troponin/NSTEMI Current Visit: Yes Status: Acute Plan to address problem: Possible troponin leak Cardiology following -- DVT prophylaxis Current Visit: Yes Status: Acute Plan to address problem: On eliquis Closely monitor the patient and adjust the management as needed 03/20/2020; severe hypomagnesemia, replenished with IV mag sulfate Brief episodes of A. fib with rapid ventricular rate, cardiology started on amiodarone and Eliquis Patient is already on beta-blockers, will closely monitor Possible discharge in 1 to 2 days if stable 03/21 awake and alert, denies CP or sob. poor historian. lab results and cardiology and nephrology notes reviewed History Interval history: I have seen and examined the patient Patient's chart and medications reviewed Patient feels slightly better confused at times Has brief episodes of A. fib with rapid ventricular rate Cardiology following Vital signs noted Objective - Constitutional Vitals: Vital Signs - 12hr 03/21/20 03/21/20 03/21/20 07:50 07:53 08:43 Temperature 97.3 F L Pulse Rate 70 70 Pulse Rate [ Apical] Pulse Rate [ 69 Bilateral Throughout] Respiratory 20 Rate Respiratory 20 Rate [Bilateral Throughout] Blood Pressure 119/68 119/68 O2 Sat by Pulse 97 98 Oximetry 03/21/20 10:00 Temperature Pulse Rate 72 Pulse Rate [ 70 Apical] Pulse Rate [ Bilateral Throughout] Respiratory 20 Rate Respiratory Rate [Bilateral Throughout] Blood Pressure O2 Sat by Pulse Oximetry General appearance: Present: no acute distress - EENT Eyes: PERRL, EOM intact ENT: hearing intact - Neck Neck: supple, normal ROM, no masses or JVD - Respiratory Respiratory effort: normal Respiratory: bilateral: CTA - Cardiovascular Heart Sounds: Present: S1 & S2 Extremities: No edema - Gastrointestinal General gastrointestinal: Present: soft, non-tender Rectal Exam: deferred - Genitourinary Male genitourinary: deferred - Integumentary Integumentary: clear - Neurologic Neurologic: no focal deficits, moves all extremities - Labs CBC & Chem 7: 03/19/20 05:00 03/21/20 08:41 Labs: Abnormal lab results 03/21/20 Range/Units 08:41 Potassium 3.1 L (3.6-5.0) mmol/L Chloride 94.5 L (98-107) mmol/L Carbon Dioxide 34 H (22-30) mmol/L BUN 24 H (9-20) mg/dL Magnesium 2.40 H (1.7-2.3) mg/dL HEART Score - HEART Score Age: > 65 Risk factors: > 3 risk factors or hx of atherosclerotic disease Troponin: Troponin T 0.052 ng/mL (0.00-0.029) H 03/16/20 15:48 - Critical Actions Critical Actions: 4-6 pts:12-16.6% risk of adverse cardiac event. Should be admitted
[2020-03-21] MEDS: PRAVASTATIN 80 MG TAB PO SCH (22:30)
[2020-03-21] MEDS: ASPIRIN 81 MG TAB CHEW PO SCH (22:30)
[2020-03-22] MEDS: METOPROLOL TARTRATE 25 MG TAB PO SCH ×4 (02:32→20:45)
[2020-03-22 06:16] LABS: BUN/Creatinine Ratio 29; Blood Urea Nitrogen 32 mg/dL (9-20); Calcium 8.7 mg/dL (8.4-10.2); Hemolysis Index 1
[2020-03-22] MEDS: FUROSEMIDE 40 MG TAB PO SCH (06:55)
[2020-03-22] MEDS: ARFORMOTEROL 15 MCG/2 ML NEBU IH SCH ×2 (07:51→22:14)
[2020-03-22] MEDS: BUDESONIDE 0.5 MG/2 ML NEBU IH SCH ×2 (07:51→22:14)
[2020-03-22] MEDS: APIXABAN 5 MG TAB PO SCH ×2 (09:04→21:28)
[2020-03-22] MEDS: CYANOCOBALAMIN (VIT B-12) 1000 MCG TAB PO SCH (09:04)
[2020-03-22] MEDS: AMIODARONE 200 MG TAB PO SCH ×2 (09:04→21:28)
[2020-03-22] MEDS: CALCIUM CARBONATE/VITAMIN D3 500 MG-200 UNIT TAB PO SCH (09:04)
[2020-03-22] MEDS: FAMOTIDINE 20 MG TAB PO SCH ×2 (09:04→21:28)
[2020-03-22] MEDS: LORazepam 1 MG TAB PO SCH (09:05)
[2020-03-22] MEDS: SODIUM CHLORIDE 1 GM TAB PO SCH (09:11)
--- NOTE | 2020-03-22 10:04 | Progress Note ---
Assessment and Plan Assessment and plan: -- Atrial fibrillation with RVR; cardiology note reviewed cont. BB/Eliquis and amiodarone --Hypomagnesemia; replenish with 4 g IV magnesium sulfate improved --Hyponatremia resolved Severe sodium 117 at admission Improved to [phone] Closely monitor electrolytes, nephrology following -- Acute exacerbation of CHF (congestive heart failure) echocardiogram done. no report so far Continue management per card. rec. --Bilateral lower extremity edema Significantly improved Patient has history of severe COPD We will get echocardiogram IV Lasix in the meantime --SIRS; without organ dysfunction/present on admission Leukocytosis tachycardia --Hypokalemia . Replenished, closely monitor electrolytes recheck labs in am -- Elevated troponin/NSTEMI Possible troponin leak Cardiology following -- DVT prophylaxis On eliquis 03/22/2020. Continue metoprolol and amiodarone for rate control. Continue Eliquis for anticoagulation. Hyponatremia has improved. Replete potassium. History Interval history: No new issues overnight. Hospitalist Physical - Constitutional Vitals: Temp Pulse Resp BP Pulse Ox 97.7 F 82 18 113/57 97 03/22/20 08:10 03/22/20 09:08 03/22/20 08:10 03/22/20 08:10 03/22/20 08:10 General appearance: Present: no acute distress - EENT Eyes: Present: PERRL, EOM intact ENT: hearing intact, clear oral mucosa, dentition normal - Neck Neck: Present: supple, normal ROM - Respiratory Respiratory effort: normal Respiratory: bilateral: CTA - Cardiovascular Rhythm: regular Heart Sounds: Present: S1 & S2. Absent: gallop, rub - Extremities Extremities: no ischemia, No edema, Full ROM - Abdominal General gastrointestinal: soft, non-tender, non-distended, normal bowel sounds - Integumentary Integumentary: Present: clear, warm, dry - Neurologic Neurologic: CNII-XII intact, moves all extremities HEART Score - HEART Score Age: > 65 Risk factors: > 3 risk factors or hx of atherosclerotic disease Troponin: Troponin T 0.052 ng/mL (0.00-0.029) H 03/16/20 15:48 - Critical Actions Critical Actions: 4-6 pts:12-16.6% risk of adverse cardiac event. Should be admitted Results - Labs CBC & Chem 7: 03/19/20 05:00 03/22/20 05:26 Labs: Laboratory Last Values WBC 11.8 K/mm3 (4.5-11.0) H 03/19/20 05:00 RBC 3.59 M/mm3 (3.65-5.03) L 03/19/20 05:00 Hgb 10.6 gm/dl (11.8-15.2) L 03/19/20 05:00 Hct 30.3 % (35.5-45.6) L 03/19/20 05:00 MCV 85 fl (84-94) 03/19/20 05:00 MCH 30 pg (28-32) 03/19/20 05:00 MCHC 35 % (32-34) H 03/19/20 05:00 RDW 13.6 % (13.2-15.2) 03/19/20 05:00 Plt Count 295 K/mm3 (140-440) 03/19/20 05:00 Lymph % (Auto) 11.4 % (13.4-35.0) L 03/19/20 05:00 Cottle % (Auto) 9.0 % (0.0-7.3) H 03/19/20 05:00 Eos % (Auto) 0.9 % (0.0-4.3) 03/19/20 05:00 Baso % (Auto) 0.7 % (0.0-1.8) 03/19/20 05:00 Lymph # (Auto) 1.3 K/mm3 (1.2-5.4) 03/19/20 05:00 Cottle # (Auto) 1.1 K/mm3 (0.0-0.8) H 03/19/20 05:00 Eos # (Auto) 0.1 K/mm3 (0.0-0.4) 03/19/20 05:00 Baso # (Auto) 0.1 K/mm3 (0.0-0.1) 03/19/20 05:00 Seg Neutrophils % 78.0 % (40.0-70.0) H 03/19/20 05:00 Seg Neutrophils # 9.2 K/mm3 (1.8-7.7) H 03/19/20 05:00 PT 13.5 Sec. (12.2-14.9) 03/16/20 15:48 INR 1.04 (0.87-1.13) 03/16/20 15:48 APTT 30.0 Sec. (24.2-36.6) 03/16/20 15:48 Sodium 142 mmol/L (137-145) 03/22/20 05:26 Potassium 3.1 mmol/L (3.6-5.0) L 03/22/20 05:26 Chloride 100.4 mmol/L (98-107) 03/22/20 05:26 Carbon Dioxide 30 mmol/L (22-30) 03/22/20 05:26 Anion Gap 15 mmol/L 03/22/20 05:26 BUN 32 mg/dL (9-20) H 03/22/20 05:26 Creatinine 1.1 mg/dL (0.8-1.3) 03/22/20 05:26 Estimated GFR > 60 ml/min 03/22/20 05:26 BUN/Creatinine Ratio 29 % 03/22/20 05:26 Glucose 102 mg/dL (75-100) H 03/22/20 05:26 POC Glucose 88 mg/dL (70-105) 03/21/20 07:51 Hemoglobin A1c 5.6 % (4-6) 03/17/20 05:13 Osmolality 261 Mosm/kg 03/17/20 05:13 Calcium 8.7 mg/dL (8.4-10.2) 03/22/20 05:26 Phosphorus 5.10 mg/dL (2.5-4.5) H 03/22/20 05:26 Magnesium 2.40 mg/dL (1.7-2.3) H 03/21/20 08:41 Total Bilirubin 0.80 mg/dL (0.1-1.2) 03/17/20 05:13 AST 41 units/L (5-40) H 03/17/20 05:13 ALT 36 units/L (7-56) 03/17/20 05:13 Alkaline Phosphatase 111 units/L (35-129) 03/17/20 05:13 Troponin T 0.052 ng/mL (0.00-0.029) H 03/16/20 15:48 NT-Pro-B Natriuret Pep 711.6 pg/mL (0-900) 03/16/20 15:48 Total Protein 6.3 g/dL (6.3-8.2) 03/17/20 05:13 Albumin 3.1 g/dL (3.9-5) L 03/17/20 05:13 Albumin/Globulin Ratio 1.0 % 03/17/20 05:13 Triglycerides 72 mg/dL (2-149) 03/16/20 15:48 Cholesterol 139 mg/dL (50-199) 03/16/20 15:48 LDL Cholesterol Direct 73 mg/dL (50-130) 03/16/20 15:48 HDL Cholesterol 69 mg/dL (40-59) H 03/16/20 15:48 Cholesterol/HDL Ratio 2.01 % 03/16/20 15:48 TSH 0.834 mlU/mL (0.270-4.200) 03/19/20 12:44 Free T4 1.44 ng/dL (0.76-1.46) 03/19/20 12:44 Urine Osmolality 305 Mosm/kg 03/17/20 Unknown Nasal Screen MRSA (PCR) Negative (Negative) 03/17/20 03:43 Enriquez/IV: Voiding Method Condom Catheter IV Catheter Type [Left Forearm INT / Saline Lock ] IV Catheter Type [Right Hand] Peripheral IV Active Medications - Current Medications Current Medications: Generic Name Dose Route Start Last Admin Trade Name Freq PRN Reason Stop Dose Admin Acetaminophen 650 mg 03/17/20 00:50 03/19/20 06:26 Acetaminophen 325 Mg Tab PO 325 mg Q4H PRN Administration Pain MILD(1-3)/Fever >100.5/GARCIA Albuterol 2.5 mg 03/17/20 00:35 Albuterol 2.5 Mg/3 Ml Nebu IH Q4HRT PRN Shortness Of Breath Amiodarone HCl 200 mg 03/20/20 14:00 03/22/20 09:04 Amiodarone 200 Mg Tab PO 200 mg BID RUBIO Administration Apixaban 5 mg 03/20/20 22:00 03/22/20 09:04 Apixaban 5 Mg Tab PO 5 mg Q12HR RUBIO Administration Protocol Arformoterol Tartrate 15 mcg 03/17/20 00:45 03/22/20 07:51 Arformoterol 15 Mcg/2 Ml Nebu IH 15 mcg Q12HRT RUBIO Administration Aspirin 81 mg 03/17/20 22:00 03/21/20 22:30 Aspirin 81 Mg Tab Chew PO 81 mg HS RUBIO Administration Budesonide 0.5 mg 03/17/20 00:45 03/22/20 07:51 Budesonide 0.5 Mg/2 Ml Nebu IH 0.5 mg Q12HRT RUBIO Administration Calcium/Vitamin D 1 each 03/17/20 10:00 03/22/20 09:04 Calcium Carbonate/Vitamin D3 500 Mg-200 Unit Tab PO 1 each DAILY RUBIO Administration Cyanocobalamin 1,000 mcg 03/17/20 10:00 03/22/20 09:04 Cyanocobalamin (Vit B-12) 1000 Mcg Tab PO 1,000 mcg QDAY RUBIO Administration Famotidine 20 mg 03/19/20 22:00 03/22/20 09:04 Famotidine 20 Mg Tab PO 20 mg BID RUBIO Administration Furosemide 40 mg 03/22/20 06:00 03/22/20 06:55 Furosemide 40 Mg Tab PO 40 mg DAILY@0600 RUBIO Administration Hydromorphone HCl 0.5 mg 03/17/20 00:50 03/17/20 02:00 Hydromorphone 1 Mg/1 Ml Inj IV 0.5 mg Q3H PRN Administration Pain , Severe (7-10) Lorazepam 1 mg 03/17/20 10:00 03/22/20 09:05 Lorazepam 1 Mg Tab PO 1 mg DAILY RUBIO Administration Methocarbamol 750 mg 03/17/20 00:35 Methocarbamol 750 Mg Tab PO BID PRN Muscle Spasm Metoclopramide HCl 10 mg 03/17/20 00:50 Metoclopramide 10 Mg/2 Ml Inj IV Q6H PRN Nausea And Vomiting Metoprolol Tartrate 25 mg 03/20/20 14:00 03/22/20 09:08 Metoprolol Tartrate 25 Mg Tab PO 25 mg Q6H RUBIO Administration Ondansetron HCl 4 mg 03/17/20 00:50 Ondansetron 4 Mg/2 Ml Inj IV Q8H PRN Nausea And Vomiting Pravastatin Sodium 80 mg 03/17/20 22:00 03/21/20 22:30 Pravastatin 80 Mg Tab PO 80 mg QHS RUBIO Administration Sodium Chloride 10 ml 03/17/20 10:00 03/22/20 09:05 Sodium Chloride 0.9% 10 Ml Flush Syringe IV 10 ml BID RUBIO Administration Sodium Chloride 10 ml 03/17/20 00:50 03/22/20 09:06 Sodium Chloride 0.9% 10 Ml Flush Syringe IV 10 ml PRN PRN Administration LINE FLUSH Sodium Chloride 1 gm 03/17/20 22:00 03/22/20 09:11 Sodium Chloride 1 Gm Tab PO 1 gm BID RUBIO Administration Tiotropium [place] 1 puff 03/23/20 09:00 Tiotropium 18 Mcg Cap Inhalation IH Q24HRT [facility] Nutrition/Malnutrition Assess - Dietary Evaluation Nutrition/Malnutrition Findings: Nutrition Notes Start: 03/17/20 13:30 Freq: Status: Active Protocol: Document 03/19/20 11:09 EN (Rec: 03/19/20 11:15 EN [id number]) Co-Sign 03/19/20 11:09 Nutrition Notes Initial or Follow up Reassessment Current Diagnosis COPD,Decubitus(Pressure Ulcer) ,Hypertension,Heart Failure Other Pertinent Diagnosis bilat lower edema, SOB, pulmonary edema, dyspena, SIRS , asthma Current Diet cardiac/ consistent CHO with mechanical soft Labs/Tests Na 131 K+ 3.2 BUN 28 Pertinent Medications Lasix K-Dur at 40 meq Vitamin B-12 Height 5 ft 6 in Weight 63.5 kg [place] Body Weight (kg) 64.54 BMI 22.6 Weight Status Appropriate Subjective/Other Information F/u for intakes and weight. Pt 's wt stable. Pt consuming 50% of meals with a good appetite . Pt does not like the food but does not have any preferences to note. Pt denies N/V/D. Percent of energy/protein needs met: 52%/55% Burn Absent Trauma Absent GI Symptoms None Difficulty In Swallowing,Chewing Current % PO Fair (50-74%) Minimum of two criteria Yes Energy Intake (severe) < or equal to 50% Estimated Energy Requirement > or equal to 5 days Fluid Accumulation Moderate to Severe (severe) Reduced Laundry Operator Finishing Strength Measurably Reduced (severe) #3 Nutrition Diagnosis Increased nutrient needs ( specify in comment below) Diagnosis Progress(for reassessment Continues documentation) #2 Nutrition Diagnosis Inadequate oral intake As Evidenced by Signs and Symptoms Pt consuming 50% of meals Diagnosis Progress(for reassessment Improved documentation) #1 Nutrition Diagnosis Malnutrition Diagnosis Progress(for reassessment Continues documentation) Is patient on ventilator? No Is Patient Ambulatory and/or Out of Bed No REE-(Jay-St. Jeor-confined to bed) 1540.416 Kcal/Kg value to use for calculation 30 Approximate Energy Requirements Using 1905 kcal/Kg Calculation Used for Recommendations Kcal/kg Additional Notes Protein needs 1.25-1.5g/kg (79 -95g/day) Fluid needs 1ml/kcal or MD order Nutrition Intervention Change Diet Order: Continue current diet Goal #1 Meet at least 75% of energy and protein needs via PO Goal #2 Wt gain/maintenance Anticipated Discharge Needs: Cardiac/Consistent CHO with mechanical soft modification Follow-Up By: 03/23/20 Additional Comments F/u for intakes
[2020-03-22] MEDS ORDERED: POTASSIUM CHLORIDE ER 20 MEQ TAB PO ONE ×4 (10:30→22:00)
--- NOTE | 2020-03-22 11:07 | Progress Note ---
Assessment and Plan - Patient Problems (1) Paroxysmal atrial fibrillation Current Visit: Yes Status: Acute Plan to address problem: For paroxysmal atrial fibrillation, we will continue metoprolol and amiodarone therapy. We will continue Eliquis 5 mg twice daily for long-term oral anticoagulation. Subjective Date of service: 03/22/20 Interval history: Patient is comfortable, no acute distress. Telemetry shows normal sinus rhythm, no further recurrence of atrial fibrillation. Objective Vital Signs Temp Pulse Pulse Resp Resp BP Pulse Ox 03/22/20 09:08 82 03/22/20 08:10 97.7 F 64 18 113/57 97 03/22/20 04:54 64 96 03/22/20 04:53 98.0 F 66 20 100/48 97 03/22/20 02:32 68 03/22/20 00:51 98.0 F 65 20 106/57 91 03/21/20 22:27 90 03/21/20 20:11 100 03/21/20 20:10 82 18 03/21/20 19:22 98.6 F 71 18 118/51 95 03/21/20 18:03 98.3 F 73 20 127/46 97 - Physical Examination General: No Apparent Distress HEENT: Positive: PERRL Neck: Positive: trachea midline Cardiac: Positive: Reg Rate and Rhythm Lungs: Positive: Decreased Breath Sounds Neuro: Positive: Weakness Abdomen: Positive: Soft Skin: Positive: Clear Extremities: Absent: edema - Labs and Meds Comprehensive Metabolic Panel 03/22/20 Range/Units 05:26 Sodium 142 (137-145) mmol/L Potassium 3.1 L (3.6-5.0) mmol/L Chloride 100.4 (98-107) mmol/L Carbon Dioxide 30 (22-30) mmol/L BUN 32 H (9-20) mg/dL Creatinine 1.1 (0.8-1.3) mg/dL Glucose 102 H (75-100) mg/dL Calcium 8.7 (8.4-10.2) mg/dL - Imaging and Cardiology EKG: report reviewed (Sinus rhythm no acute ST-T wave changes)
--- NOTE | 2020-03-22 12:16 | Discharge Summary ---
Providers - Providers Date of Admission: 03/16/20 17:22 Date of discharge: 03/23/20 Attending physician: COLE BLACK 03/17/20 00:50 Consult to Physician [CONS] Routine Comment: Consulting Provider: SHERLY BONE Physician Instructions: Reason For Exam: CHF exacerbation 03/17/20 07:49 Consult to Wound/ET Nurse [CONS] Routine Reason For Exam: wound eval 03/17/20 12:37 Consult to Physician [CONS] Routine Comment: Consulting Provider: BAUDILIO SANTOS Physician Instructions: Reason For Exam: Severe hyponatremia Primary care physician: DIRECTOR OF BUSINESS OPERATIONS Hospitalization Reason for admission: afib rvr Condition: Stable Hospital course: 84-year-old man with multiple severe comorbidities and PMH of decubitus ulcer, A. fib, systolic heart failure and chronic lung disease on ambulatory oxygen who was admitted to the hospital with complaints of edema, recurrent sacral decubitus ulcers, and shortness of breath. The patient was admitted with diagnosis of hyponatremia, hypokalemia, elevated troponin, acute diastolic heart failure exacerbation and A. fib with RVR. Cardiac consultation was requested for evaluation of congestive heart failure. The ECG was normal sinus rhythm with occasional PACs, left axis deviation, nonspecific intraventricular conduction delay. There were no ischemic changes and no change from the patient's baseline ECG. Chest x-ray showed evidence of a hiatal hernia, but normal-sized cardiac silhouette and clear lungs. Just last month, the patient had an echocardiogram that reported left ventricular ejection fraction of 50 to 55%. Notably, the echocardiogram reported normal right heart chamber sizes, only mild tricuspid regurgitation and a pulmonary artery pressure that was only mildly elevated at 39 mmHg. Most notable on this presentation is severe hyponatremia with a sodium of 117, and hypokalemia with a potassium of 2.5. The potassium and sodium were repleted back to baseline. Cardiology treated the atrial fibrillation with metoprolol and amiodarone therapy with stabilization of heart rate. Patient was continued on Eliquis 5 mg twice daily for long-term anticoagulation. Nephrology also saw the patient with regards to the hyponatremia which was secondary to decompensated diastolic CHF and metolazone. The heart failure improved with Strict I/O, monitor urine output, daily weight, afterload reduction, blood pressure control, diuresis with Lasix. Echocardiogram showed normal EF and diastolic dysfunction. Patient is back to baseline is felt to have received maximal hospital benefit for discharge. 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 Patient's debility multifactorial. Patient di scharged home on LABA metered-dose inhaler. And albuterol as well. Core Measure Documentation - Palliative Care Palliative Care/ Comfort Measures: Not Applicable - Core Measures Any of the following diagnoses?: heart failure - Heart Failure Discharge Requirements DEO/ARB for LVSD if EF <40%: No Reason for no DEO/ARB: Hypotension Beta saqib at discharge: Yes Exam - Constitutional Vitals: Temp Pulse Resp BP Pulse Ox 97.7 F 82 18 113/57 97 03/22/20 08:10 03/22/20 09:08 03/22/20 08:10 03/22/20 08:10 03/22/20 08:10 General appearance: Present: no acute distress, well-nourished - EENT Eyes: Present: PERRL ENT: hearing intact, clear oral mucosa - Neck Neck: Present: supple, normal ROM - Respiratory Respiratory effort: normal Respiratory: bilateral: CTA - Cardiovascular Heart Sounds: Present: S1 & S2. Absent: rub, click - Extremities Extremities: pulses symmetrical, No edema Peripheral Pulses: within normal limits - Abdominal General gastrointestinal: Present: soft, non-tender, non-distended, normal bowel sounds Male genitourinary: Present: normal - Integumentary Integumentary: Present: clear, warm, dry - Musculoskeletal Musculoskeletal: gait normal, strength equal bilaterally - Psychiatric Psychiatric: appropriate mood/affect, intact judgment & insight - Neurologic Neurologic: CNII-XII intact, moves all extremities Plan Activity: advance as tolerated Weight Bearing Status: Weight Bear as Tolerated Diet: low fat, low cholesterol, low salt Plan of Treatment: Home health with [facility] [phone] Follow up with: PRIMARY MD JANICE [Primary Care Provider] - 3-5 Days BENIGNO PAREDES MD [Staff Physician] - 7 Days Prescriptions: Aspirin [Aspirin BABY CHEW TAB] 81 mg PO HS #30 Fluticasone/Vilanterol [Breo Ellipta 100-25 Mcg INH] 100 mcg IH DAILY 30 Days Amiodarone [Cordarone 200 MG TAB] 200 mg PO BID #60 tablet Losartan [Cozaar] 100 mg PO QDAY #30 Losartan [Cozaar] 100 mg PO QDAY #30 tablet Apixaban [Eliquis] 5 mg PO Q12HR #60 tablet Potassium Chloride [K-Dur] 10 meq PO QDAY #30 Furosemide [Lasix TAB] 40 mg PO BID #60 Metoprolol [Lopressor TAB] 25 mg PO Q6H #120 tablet methOCARBAMOL 750 mg PO BID PRN #60 PRN Reason: Muscle Spasm Simvastatin 40 mg PO QHS #30 Tiotropium [place] [Spiriva Respimat] 2 spray IH HS 30 Days Cyanocobalamin [Vitamin B-12] 1,000 mcg PO QDAY #30 tablet
--- NOTE | 2020-03-22 13:18 | Progress Note ---
Assessment and Plan 1. Hypervolemic Hyponatremia: 2/2 decompensated diastolic CHF and Metolazone. Fluid restriction. On Lasix. Sodium level has improved. Monitor Sodium level. 2. FEN: Volume overload, much better, on PO Lasix. Metabolic alkalosis, Diamox as needed, monitor. Replete K. Monitor lytes and volume status. 3. CHF exacerbation: Strict I/O, monitor urine output, daily weight, afterload reduction, blood pressure control, diuresis with Lasix. Echocardiogram showed normal EF and diastolic dysfunction. 4. Recurrent episodes of A.fib with RVR: Followed by Cards. 5. Chronic hypoxic respiratory failure: Continue supplemental oxygen. 6. COPD (chronic obstructive pulmonary disease): Supplemental oxygen, nebulizer therapy. 7. Hypertension: Monitor blood pressure. Subjective: Patient was seen and examined at the bedside. Examination: General appearance: well-developed, appears stated age, no distress, NC O2 HEENT: ATNC Eyes: JOI Neck: trachea midline Respiratory: ctab Heart: S1S2, no murmur Gastrointestinal: soft, normoactive bowel sounds, not tender, not distended Integumentary: LE stasis changes noted Neurologic: alert, conversing, able to move extremities Ext: no edema noted Subjective Date of service: 03/22/20 Objective - Vital Signs Vital signs: Vital Signs - 12hr 03/22/20 03/22/20 03/22/20 02:32 04:53 04:54 Temperature 98.0 F Pulse Rate 68 66 64 Pulse Rate [ Bilateral Throughout] Respiratory 20 Rate Respiratory Rate [Bilateral Throughout] Blood Pressure 100/48 O2 Sat by Pulse 97 96 Oximetry 03/22/20 03/22/20 03/22/20 08:10 09:08 10:00 Temperature 97.7 F Pulse Rate 64 82 Pulse Rate [ 82 Bilateral Throughout] Respiratory 18 Rate Respiratory 18 Rate [Bilateral Throughout] Blood Pressure 113/57 O2 Sat by Pulse 97 97 Oximetry 03/22/20 03/22/20 12:13 12:19 Temperature Pulse Rate 67 Pulse Rate [ Bilateral Throughout] Respiratory Rate Respiratory Rate [Bilateral Throughout] Blood Pressure 92/47 94/40 O2 Sat by Pulse 89 Oximetry - Lab 03/19/20 05:00 03/22/20 05:26 Most recent lab results Calcium 8.7 mg/dL (8.4-10.2) 03/22/20 05:26 Phosphorus 5.10 mg/dL (2.5-4.5) H 03/22/20 05:26 Magnesium 2.40 mg/dL (1.7-2.3) H 03/21/20 08:41 Medications & Allergies - Medications Allergies/Adverse Reactions: Allergies Penicillins Allergy (Verified 02/13/19 10:54) Anaphylaxis Home Medications: Home Medications Medication Instructions Recorded Confirmed Last Taken Type Calcium Carbonate/Vitamin D3 600 tab-cap PO QDAY MDD supplement 02/14/19 02/03/20 02/03/20 History [Calcium 600 with Vit D Chew Tb] Cyanocobalamin (Vitamin B-12) 1,000 mcg PO QDAY 02/14/19 02/03/20 02/03/20 History [Vitamin B12] Simvastatin 40 mg PO QHS 02/14/19 02/03/20 02/02/20 History Aspirin [Aspirin BABY CHEW TAB] 81 mg PO HS 02/03/20 02/03/20 02/03/20 History Fluticasone/Vilanterol [Breo 100 mcg IH DAILY 02/03/20 02/03/20 02/03/20 History Ellipta 100-25 Mcg INH] Furosemide [Lasix TAB] 40 mg PO BID 02/03/20 02/03/20 02/03/20 History LORazepam [Lorazepam] 1 mg PO DAILY 02/03/20 02/03/20 02/03/20 History Losartan [Cozaar] 100 mg PO QDAY 02/03/20 02/03/20 02/03/20 History Multivitamin [Multiple Vitamins] 1 each PO DAILY 02/03/20 02/03/20 02/03/20 History Potassium Chloride [K-Dur] 10 meq PO QDAY 02/03/20 02/03/20 02/02/20 History Tiotropium [place] [Spiriva 2 spray IH HS 02/03/20 02/03/20 02/02/20 History Respimat] guaiFENesin [Mucus Relief ER] 1,200 mg PO HS 02/03/20 02/03/20 Unknown History methOCARBAMOL 750 mg PO BID PRN 02/03/20 02/03/20 Unknown History ALBUTEROL NEB's [Proventil 0.083% 2.5 mg IH Q4HRT PRN #7 nebu 02/09/20 Unknown Rx NEBS] ALBUTEROL NEB's [Proventil 0.083% 5 mg IH TID PRN #20 neb 02/09/20 Unknown Rx NEBS] Acetaminophen [Acetaminophen TAB] 650 mg PO Q4H PRN tablet 02/09/20 Unknown Rx Arformoterol Nebu [Brovana Nebu] 15 mcg IH Q12HRT #1 ml 02/09/20 Unknown Rx Budesonide [Pulmicort Respules] 0.5 mg IH Q12HRT #1 nebu 02/09/20 Unknown Rx Calc Carb/Vit D 500 mg-200 Uni 1 each PO DAILY tablet 02/09/20 Unknown Rx [Oysco D 500 mg-200 Unit] Cyanocobalamin [Vitamin B-12] 1,000 mcg PO QDAY tablet 02/09/20 Unknown Rx Losartan [Cozaar] 100 mg PO QDAY #30 tablet 02/09/20 Unknown Rx Multivitamin Tab [Multiple Vitamin 1 each PO DAILY #30 tablet 02/09/20 Unknown Rx TAB (Theragran)] guaiFENesin ER [Mucinex ER] 1,200 mg PO QHS tablet 02/09/20 Unknown Rx methOCARBAMOL [Robaxin TAB] 750 mg PO BID PRN tablet 02/09/20 Unknown Rx Active Medications: Generic Name Dose Route Start Last Admin Trade Name Freq PRN Reason Stop Dose Admin Acetaminophen 650 mg 03/17/20 00:50 03/19/20 06:26 Acetaminophen 325 Mg Tab PO 325 mg Q4H PRN Administration Pain MILD(1-3)/Fever >100.5/GARCIA Albuterol 2.5 mg 03/17/20 00:35 Albuterol 2.5 Mg/3 Ml Nebu IH Q4HRT PRN Shortness Of Breath Amiodarone HCl 200 mg 03/20/20 14:00 03/22/20 09:04 Amiodarone 200 Mg Tab PO 200 mg BID RUBIO Administration Apixaban 5 mg 03/20/20 22:00 03/22/20 09:04 Apixaban 5 Mg Tab PO 5 mg Q12HR RUBIO Administration Protocol Arformoterol Tartrate 15 mcg 03/17/20 00:45 03/22/20 07:51 Arformoterol 15 Mcg/2 Ml Nebu IH 15 mcg Q12HRT RUBIO Administration Aspirin 81 mg 03/17/20 22:00 03/21/20 22:30 Aspirin 81 Mg Tab Chew PO 81 mg HS RUBIO Administration Budesonide 0.5 mg 03/17/20 00:45 03/22/20 07:51 Budesonide 0.5 Mg/2 Ml Nebu IH 0.5 mg Q12HRT RUBIO Administration Calcium/Vitamin D 1 each 03/17/20 10:00 03/22/20 09:04 Calcium Carbonate/Vitamin D3 500 Mg-200 Unit Tab PO 1 each DAILY RUBIO Administration Cyanocobalamin 1,000 mcg 03/17/20 10:00 03/22/20 09:04 Cyanocobalamin (Vit B-12) 1000 Mcg Tab PO 1,000 mcg QDAY RUBIO Administration Famotidine 20 mg 03/19/20 22:00 03/22/20 09:04 Famotidine 20 Mg Tab PO 20 mg BID RUBIO Administration Furosemide 40 mg 03/22/20 06:00 03/22/20 06:55 Furosemide 40 Mg Tab PO 40 mg DAILY@0600 RUBIO Administration Hydromorphone HCl 0.5 mg 03/17/20 00:50 03/17/20 02:00 Hydromorphone 1 Mg/1 Ml Inj IV 0.5 mg Q3H PRN Administration Pain , Severe (7-10) Lorazepam 1 mg 03/17/20 10:00 03/22/20 09:05 Lorazepam 1 Mg Tab PO 1 mg DAILY RUBIO Administration Methocarbamol 750 mg 03/17/20 00:35 Methocarbamol 750 Mg Tab PO BID PRN Muscle Spasm Metoclopramide HCl 10 mg 03/17/20 00:50 Metoclopramide 10 Mg/2 Ml Inj IV Q6H PRN Nausea And Vomiting Metoprolol Tartrate 25 mg 03/20/20 14:00 03/22/20 09:08 Metoprolol Tartrate 25 Mg Tab PO 25 mg Q6H RUBIO Administration Ondansetron HCl 4 mg 03/17/20 00:50 Ondansetron 4 Mg/2 Ml Inj IV Q8H PRN Nausea And Vomiting Potassium Chloride 40 meq 03/22/20 15:00 Potassium Chloride Er 20 Meq Tab PO 03/22/20 15:01 ONCE ONE Pravastatin Sodium 80 mg 03/17/20 22:00 03/21/20 22:30 Pravastatin 80 Mg Tab PO 80 mg QHS RUBIO Administration Sodium Chloride 10 ml 12/16/20 10:00 03/22/20 09:05 Sodium Chloride 0.9% 10 Ml Flush Syringe IV 10 ml BID RUBIO Administration Sodium Chloride 10 ml 03/17/20 00:50 03/22/20 09:06 Sodium Chloride 0.9% 10 Ml Flush Syringe IV 10 ml PRN PRN Administration LINE FLUSH Sodium Chloride 1 gm 03/17/20 22:00 03/22/20 09:11 Sodium Chloride 1 Gm Tab PO 1 gm BID RUBIO Administration Tiotropium [place] 1 puff 03/23/20 09:00 Tiotropium 18 Mcg Cap Inhalation IH Q24HRT RUBIO
[2020-03-22] MEDS: ASPIRIN 81 MG TAB CHEW PO SCH (21:28)
[2020-03-22] MEDS: PRAVASTATIN 80 MG TAB PO SCH (21:28)
[2020-03-23] MEDS: METOPROLOL TARTRATE 25 MG TAB PO SCH ×3 (02:00→13:55)
[2020-03-23 05:11] LABS: Basophils # (Auto) 0.1 K/mm3 (0.0-0.1); Basophils % (Auto) 0.5 % (0.0-1.8); Eosinophils # (Auto) 0.2 K/mm3 (0.0-0.4); Eosinophils % (Auto) 1.3 % (0.0-4.3); Hematocrit 34.2 % (35.5-45.6); Hemoglobin 11.4 gm/dl (11.8-15.2); Lymphocytes # (Auto) 1.3 K/mm3 (1.2-5.4); Lymphocytes % (Auto) 7.3 % (13.4-35.0); Mean Corpuscular HGB Conc 33 % (32-34); Mean Corpuscular Volume 86 fl (84-94); Monocytes # (Auto) 1.2 K/mm3 (0.0-0.8); Monocytes % (Auto) 6.9 % (0.0-7.3); Platelet Count 357 K/mm3 (140-440); Red Blood Count 3.97 M/mm3 (3.65-5.03); Red Cell Distribution Width 13.9 % (13.2-15.2)
[2020-03-23 05:32] LABS: Calcium 8.6 mg/dL (8.4-10.2)
[2020-03-23] MEDS: FUROSEMIDE 40 MG TAB PO SCH (05:54)
[2020-03-23] MEDS: ARFORMOTEROL 15 MCG/2 ML NEBU IH SCH (07:40)
[2020-03-23] MEDS: BUDESONIDE 0.5 MG/2 ML NEBU IH SCH (07:40)
[2020-03-23] MEDS ORDERED: TIOTROPIUM 18 MCG CAP INHALATION IH SCH (09:00)
[2020-03-23] MEDS: CYANOCOBALAMIN (VIT B-12) 1000 MCG TAB PO SCH (10:07)
[2020-03-23] MEDS: FAMOTIDINE 20 MG TAB PO SCH (10:07)
[2020-03-23] MEDS: LORazepam 1 MG TAB PO SCH (10:08)
[2020-03-23] MEDS: CALCIUM CARBONATE/VITAMIN D3 500 MG-200 UNIT TAB PO SCH (10:08)
[2020-03-23] MEDS: AMIODARONE 200 MG TAB PO SCH (10:08)
[2020-03-23] MEDS: APIXABAN 5 MG TAB PO SCH (10:08)
--- NOTE | 2020-03-23 10:47 | Progress Note ---
Assessment and Plan 1. Hypervolemic Hyponatremia: 2/2 decompensated diastolic CHF and Metolazone. Fluid restriction. Sodium level has improved. Monitor Sodium level. 2. FEN: Volume overload, much better. Metabolic alkalosis, Diamox as needed, monitor. Monitor lytes and volume status. 3. CHF exacerbation: Strict I/O, monitor urine output, daily weight, afterload reduction, blood pressure control, diuresis with Lasix. Echocardiogram showed normal EF and diastolic dysfunction. 4. Recurrent episodes of A.fib with RVR: Followed by Cards. 5. Chronic hypoxic respiratory failure: Continue supplemental oxygen. 6. COPD (chronic obstructive pulmonary disease): Supplemental oxygen, nebulizer therapy. 7. Hypertension: Monitor blood pressure. Subjective: Patient was seen and examined at the bedside. Examination: General appearance: well-developed, appears stated age, no distress, NC O2 HEENT: ATNC Eyes: JOI Neck: trachea midline Respiratory: ctab Heart: S1S2, no murmur Gastrointestinal: soft, normoactive bowel sounds, not tender, not distended Integumentary: LE stasis changes noted Neurologic: alert, conversing, able to move extremities Ext: no edema noted Subjective Date of service: 03/23/20 Objective - Vital Signs Vital signs: Vital Signs - 12hr 03/22/20 03/23/20 03/23/20 23:21 02:00 03:27 Temperature 97.4 F L 97.7 F Pulse Rate 69 69 69 Respiratory 19 18 Rate Blood Pressure 90/44 90/44 98/44 O2 Sat by Pulse 85 87 Oximetry 03/23/20 08:48 Temperature 97.9 F Pulse Rate 62 Respiratory 18 Rate Blood Pressure 105/55 O2 Sat by Pulse 99 Oximetry - Lab 03/23/20 04:58 03/23/20 04:58 Most recent lab results Calcium 8.6 mg/dL (8.4-10.2) 03/23/20 04:58 Phosphorus 5.10 mg/dL (2.5-4.5) H 03/22/20 05:26 Magnesium 2.40 mg/dL (1.7-2.3) H 03/21/20 08:41 Medications & Allergies - Medications Allergies/Adverse Reactions: Allergies Penicillins Allergy (Verified 02/13/19 10:54) Anaphylaxis Home Medications: Home Medications Medication Instructions Recorded Confirmed Last Taken Type Calcium Carbonate/Vitamin D3 600 tab-cap PO QDAY MDD supplement 02/14/19 02/03/20 02/03/20 History [Calcium 600 with Vit D Chew Tb] Cyanocobalamin (Vitamin B-12) 1,000 mcg PO QDAY 02/14/19 02/03/20 02/03/20 History [Vitamin B12] LORazepam [Lorazepam] 1 mg PO DAILY 02/03/20 02/03/20 02/03/20 History Multivitamin [Multiple Vitamins] 1 each PO DAILY 02/03/20 02/03/20 02/03/20 History guaiFENesin [Mucus Relief ER] 1,200 mg PO HS 02/03/20 02/03/20 Unknown History ALBUTEROL NEB's [Proventil 0.083% 5 mg IH TID PRN #20 neb 02/09/20 Unknown Rx NEBS] Acetaminophen [Acetaminophen TAB] 650 mg PO Q4H PRN tablet 02/09/20 Unknown Rx Calc Carb/Vit D 500 mg-200 Uni 1 each PO DAILY tablet 02/09/20 Unknown Rx [Oysco D 500 mg-200 Unit] Multivitamin Tab [Multiple Vitamin 1 each PO DAILY #30 tablet 02/09/20 Unknown Rx TAB (Theragran)] guaiFENesin ER [Mucinex ER] 1,200 mg PO QHS tablet 02/09/20 Unknown Rx methOCARBAMOL [Robaxin TAB] 750 mg PO BID PRN tablet 02/09/20 Unknown Rx Amiodarone [Cordarone 200 MG TAB] 200 mg PO BID #60 tablet 03/23/20 Unknown Rx Apixaban [Eliquis] 5 mg PO Q12HR #60 tablet 03/23/20 Unknown Rx Aspirin [Aspirin BABY CHEW TAB] 81 mg PO HS #30 03/23/20 Unknown Rx Cyanocobalamin [Vitamin B-12] 1,000 mcg PO QDAY #30 tablet 03/23/20 Unknown Rx Famotidine [Pepcid] 20 mg PO BID tablet 03/23/20 Unknown Rx Fluticasone/Vilanterol [Breo 100 mcg IH DAILY 30 Days 03/23/20 Unknown Rx Ellipta 100-25 Mcg INH] Furosemide [Lasix TAB] 40 mg PO BID #60 03/23/20 Unknown Rx Losartan [Cozaar] 100 mg PO QDAY #30 03/23/20 Unknown Rx Losartan [Cozaar] 100 mg PO QDAY #30 tablet 03/23/20 Unknown Rx Metoprolol [Lopressor TAB] 25 mg PO Q6H #120 tablet 03/23/20 Unknown Rx Potassium Chloride [K-Dur] 10 meq PO QDAY #30 03/23/20 Unknown Rx Simvastatin 40 mg PO QHS #30 03/23/20 Unknown Rx Tiotropium [place] [Spiriva 2 spray IH HS 30 Days 03/23/20 Unknown Rx Respimat] methOCARBAMOL 750 mg PO BID PRN #60 03/23/20 Unknown Rx Active Medications: Generic Name Dose Route Start Last Admin Trade Name Freq PRN Reason Stop Dose Admin Acetaminophen 650 mg 03/17/20 00:50 03/19/20 06:26 Acetaminophen 325 Mg Tab PO 325 mg Q4H PRN Administration Pain MILD(1-3)/Fever >100.5/GARCIA Albuterol 2.5 mg 03/17/20 00:35 Albuterol 2.5 Mg/3 Ml Nebu IH Q4HRT PRN Shortness Of Breath Amiodarone HCl 200 mg 03/20/20 14:00 03/23/20 10:08 Amiodarone 200 Mg Tab PO 200 mg BID RUBIO Administration Apixaban 5 mg 03/20/20 22:00 03/23/20 10:08 Apixaban 5 Mg Tab PO 5 mg Q12HR RUBIO Administration Protocol Arformoterol Tartrate 15 mcg 03/17/20 00:45 03/23/20 07:40 Arformoterol 15 Mcg/2 Ml Nebu IH 15 mcg Q12HRT RUBIO Administration Aspirin 81 mg 03/17/20 22:00 03/22/20 21:28 Aspirin 81 Mg Tab Chew PO 81 mg HS RUBIO Administration Budesonide 0.5 mg 03/17/20 00:45 03/23/20 07:40 Budesonide 0.5 Mg/2 Ml Nebu IH 0.5 mg Q12HRT RUBIO Administration Calcium/Vitamin D 1 each 03/17/20 10:00 03/23/20 10:08 Calcium Carbonate/Vitamin D3 500 Mg-200 Unit Tab PO 1 each DAILY RUBIO Administration Cyanocobalamin 1,000 mcg 03/17/20 10:00 03/23/20 10:07 Cyanocobalamin (Vit B-12) 1000 Mcg Tab PO 1,000 mcg QDAY RUBIO Administration Famotidine 20 mg 03/19/20 22:00 03/23/20 10:07 Famotidine 20 Mg Tab PO 20 mg BID RUBIO Administration Furosemide 40 mg 03/22/20 06:00 03/23/20 05:54 Furosemide 40 Mg Tab PO Not Given DAILY@0600 RUBIO Hydromorphone HCl 0.5 mg 03/17/20 00:50 03/17/20 02:00 Hydromorphone 1 Mg/1 Ml Inj IV 0.5 mg Q3H PRN Administration Pain , Severe (7-10) Lorazepam 1 mg 03/17/20 10:00 03/23/20 10:08 Lorazepam 1 Mg Tab PO 1 mg DAILY [facility] Administration Methocarbamol 750 mg 03/17/20 00:35 Methocarbamol 750 Mg Tab PO BID PRN Muscle Spasm Metoclopramide HCl 10 mg 03/17/20 00:50 Metoclopramide 10 Mg/2 Ml Inj IV Q6H PRN Nausea And Vomiting Metoprolol Tartrate 25 mg 03/20/20 14:00 03/23/20 08:00 Metoprolol Tartrate 25 Mg Tab PO 25 mg Q6H RUBIO Administration Ondansetron HCl 4 mg 03/17/20 00:50 Ondansetron 4 Mg/2 Ml Inj IV Q8H PRN Nausea And Vomiting Pravastatin Sodium 80 mg 03/17/20 22:00 03/22/20 21:28 Pravastatin 80 Mg Tab PO 80 mg QHS [facility] Administration Sodium Chloride 10 ml 03/17/20 10:00 03/23/20 10:09 Sodium Chloride 0.9% 10 Ml Flush Syringe IV 10 ml BID RUBIO Administration Sodium Chloride 10 ml 03/17/20 00:50 03/22/20 09:06 Sodium Chloride 0.9% 10 Ml Flush Syringe IV 10 ml PRN PRN Administration LINE FLUSH Tiotropium [place] 1 puff 03/23/20 09:00 03/23/20 10:09 Tiotropium 18 Mcg Cap Inhalation IH Not Given Q24HRT [facility]
--- NOTE | 2020-03-23 11:14 | Progress Note ---
Assessment and Plan - Patient Problems (1) Paroxysmal atrial fibrillation Current Visit: Yes Status: Acute Plan to address problem: For paroxysmal atrial fibrillation, we will continue metoprolol and amiodarone therapy. We will continue Eliquis 5 mg twice daily for long-term oral anticoagulation. Subjective Date of service: 03/23/20 Interval history: Patient is comfortable, no acute distress. Telemetry shows normal sinus rhythm, no further recurrence of atrial fibrillation has been reported. Objective Vital Signs Temp Pulse Pulse Pulse Pulse Pulse Resp 03/23/20 10:00 69 69 21 03/23/20 08:48 97.9 F 62 18 03/23/20 03:27 97.7 F 69 18 03/23/20 02:00 69 03/22/20 23:21 97.4 F L 69 19 03/22/20 22:17 03/22/20 22:16 83 03/22/20 22:00 70 67 18 03/22/20 19:37 100.0 F H 65 18 03/22/20 17:53 104 H 03/22/20 16:30 75 03/22/20 16:29 97.4 F L 74 20 03/22/20 12:19 03/22/20 12:13 67 Resp BP Pulse Ox 03/23/20 10:00 96 03/23/20 08:48 105/55 99 03/23/20 03:27 98/44 87 03/23/20 02:00 90/44 03/22/20 23:21 90/44 85 03/22/20 22:17 98 03/22/20 22:16 18 03/22/20 22:00 03/22/20 19:37 104/48 92 03/22/20 17:53 03/22/20 16:30 92 03/22/20 16:29 94/50 87 03/22/20 12:19 94/40 03/22/20 12:13 92/47 89 - Physical Examination General: No Apparent Distress HEENT: Positive: PERRL Neck: Positive: trachea midline Cardiac: Positive: Reg Rate and Rhythm Lungs: Positive: Decreased Breath Sounds Neuro: Positive: Weakness Abdomen: Positive: Soft Skin: Positive: Clear Extremities: Absent: edema - Labs and Meds CBC 03/23/20 Range/Units 04:58 WBC 17.6 H (4.5-11.0) K/mm3 RBC 3.97 (3.65-5.03) M/mm3 Hgb 11.4 L (11.8-15.2) gm/dl Hct 34.2 L (35.5-45.6) % Plt Count 357 (140-440) K/mm3 Lymph # (Auto) 1.3 (1.2-5.4) K/mm3 [place] # (Auto) 1.2 H (0.0-0.8) K/mm3 Eos # (Auto) 0.2 (0.0-0.4) K/mm3 Baso # (Auto) 0.1 (0.0-0.1) K/mm3 Comprehensive Metabolic Panel 03/23/20 Range/Units 04:58 Sodium 138 (137-145) mmol/L Potassium 3.8 D (3.6-5.0) mmol/L Chloride 100.7 (98-107) mmol/L Carbon Dioxide 28 (22-30) mmol/L BUN 37 H (9-20) mg/dL Creatinine 1.2 (0.8-1.3) mg/dL Glucose 91 (75-100) mg/dL Calcium 8.6 (8.4-10.2) mg/dL - Imaging and Cardiology EKG: report reviewed (Sinus rhythm no acute ST-T wave changes)
[2020-03-23 13:57] VITALS: BP 99/56
== END 2020-03-23 18:23 | disposition home health service (06) | DRG 281 ==
LOC: ED 13:27 → 4A 17:22
PROVIDERS: ADMIT Internal Medicine; ATTEND Hospitalist
DX: I11.0 Hypertensive heart disease with heart failure (principal); I21.4 Non-ST elevation (NSTEMI) myocardial infarction; E87.1 Hypo-osmolality and hyponatremia; L03.119 Cellulitis of unspecified part of limb; J96.11 Chronic respiratory failure with hypoxia; R65.10 Systemic inflammatory response syndrome (SIRS) of non-infectious origin without acute organ dysfunction; I50.43 Acute on chronic combined systolic (congestive) and diastolic (congestive) heart failure; M54.9 Dorsalgia, unspecified; G89.29 Other chronic pain; I48.0 Paroxysmal atrial fibrillation; E87.6 Hypokalemia; L89.152 Pressure ulcer of sacral region, stage 2; Z79.899 Other long term (current) drug therapy; Z87.891 Personal history of nicotine dependence; Z79.82 Long term (current) use of aspirin; Z88.0 Allergy status to penicillin
CPT/HCPCS: 36415; 71046; 80048; 80053; 80061; 82962; 83036; 83735; 83880; 83930; 83935; 84100; 84295; 84439; 84443; 84484; 85025; 85610; 85730; 87641; 93005; 93970; 94640; 94760; 96365; 96375; G0378; A9270-GY; J0282; J1160; J1170; J1644; J1940; J3475; J3480; J7050